=== PATIENT | male | born 1965 | race African-American/Black ===

== ENCOUNTER 2024-12-28 17:21 | Emergency (ER) | payer OTHER, SELFPAY ==
[2024-12-28 17:25] VITALS: BP 127/88; PULSE 98; RESP 16; TEMP 36.4; O2SAT 100
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
--- NOTE | 2024-12-28 17:53 | ECG_ITS ---
Test Date: 2024-12-28 17:53:58 Measurements Intervals [place] Rate: 97 P: 55 DE: 142 QRS: -9 QRSD: 161 T: 200 QT: 413 QTc: 527 Interpretive Statements SINUS RHYTHM POSSIBLE LEFT ATRIAL ENLARGEMENT LEFT BUNDLE BRANCH BLOCK BASELINE ARTIFACT- II, III ABNORMAL ECG No previous ECG available for comparison Electronically Signed On 12-29-2024 07:46:22 CDT by Dennys Wallis D.O.
[2024-12-28 18:25] LABS: Hematocrit 37.2 % (42.0-52.0); Hemoglobin 12.0 g/dL (14.0-18.0); Immature Granulocyte Percent A 0.2 % (0-0.5); Lymphocytes Absolute Auto 2.50 K/mm3 (0.9-3.2); Mean Corpuscular HGB Conc 32.3 g/dl (32-36); Mean Corpuscular Hemoglobin 26.8 pg (26-34); Mean Corpuscular Volume 83.2 fl (80-100); Nucleated Red Blood Cells Absolute Auto 0.000 K/mm3 (0.0-0.012); Nucleated Red Blood Cells Perc 0.0 % (0.0-0.2); Platelet Count Result 265 k/mm3 (150-375); Red Blood Count 4.47 M/mm3 (4.6-6.20); White Blood Count 5.4 K/mm3 (4.5-10.0)
--- OUTSIDE RECORDS SUMMARY | 2024-12-28 18:26 | XMS_ITS | Clinical Summary ---
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 rehab bed Assessment & Plan (08/15/2019 3:23 PM CDT): Patient with history of alcohol use disorder, cocaine use disorder, previous suicide attempts presenting with 1-2 weeks of worsening depressive symptoms in context of recent stressors including deaths of several people close to him and interpersonal conflict with the woman he lives with. DDx likely substance induced depressive disorder, but cannot rule out major depressive disorder or adjustment disorder. Pt with only intermittent passive SI, demonstrates good future planning. Pt will attempt to get into inpatient rehab while inpatient. Plan: Resume home [facility], pt to call for inpatient rehab bed Type 2 diabetes mellitus with hyperglycemia 08/14/2019 10/02/2024 Assessment & Plan (01/10/2024 10:54 AM CDT): Not controlled, declines medical management. Last A1c 12.7 in 05/2023 Not open to diet control. Made NPO here for BG up to 430. Declined blood draw to assess for AG. Counseled on risks, benefits of insulin and continues to decline medication. Further psych management per primary team. Assessment & Plan (12/18/2022 9:03 AM CDT): A1c 6 month ago was 12.7 At home has was prescribed Lantus 20u PM and glipizide. Nevertheless is not using DM medications. In the past he was using metformin On the ED, Bgs was in the 300s. No AG. S/p humalog sq 10u 2 days ago required 7u Humalog sq. Post insulin Bgs was 150 Since then pt is saying no to insulin These morning BG was 222 Again said no to insulin - On PSC I was recommending SSI and metformin 1000 mg BID. Lantus was hold because he was not eating much. - I explained patient that I recommend Insulin on discharge but he said no - Discharge with metformin 1000 mg BID and glipizide 5 mg daily - Gabapentin for DM neuropathy - Will need to have a fu with PCP Assessment & Plan (01/16/2021 1:27 PM CDT): Home med- lantus 20 units, glipizide and ssi Previously prescribed lantus 17 units at home with ssi. Patient reports taking lantus 20 units and is unsure how much lispro he takes but reports using a sliding scale. - increase lantus to 20 units - Reports storing his insulin at sisters place. -added lispro 3 unit with meals per IP diabetes team Assessment & Plan (01/15/2021 10:10 AM CDT): Home med- lantus 20 units, glipizide and ssi Previously prescribed lantus 17 units at home with ssi. Patient reports taking lantus 20 units and is unsure how much lispro he takes but reports using a sliding scale. - increase lantus to 20 units - Reports storing his insulin at sisters place. -added lispro 3 unit with meals per IP diabetes team Assessment & Plan (01/14/2021 1:07 PM CDT): Previously prescribed lantus 17 units at home with ssi. Patient reports taking lantus 20 units and is unsure how much lispro he takes but reports using a sliding scale. - increase lantus to 20 units - Reports storing his insulin at sisters place. -added lispro 3 unit with meals Assessment & Plan (01/13/2021 7:55 AM CDT): Previously prescribed lantus 17 units at home with ssi. Patient reports taking lantus 20 units and is unsure how much lispro he takes but reports using a sliding scale. - increase lantus to 20 units - Reports storing his insulin at sisters place. Assessment & Plan (01/12/2021 4:35 PM CDT): Previously prescribed lantus 17 units at home with ssi. Patient reports taking lantus 20 units and is unsure how much lispro he takes but reports using a sliding scale. - will continue lantus 17 units and ssi. Reports storing his insulin at sisters place. Assessment & Plan (01/11/2021 4:27 PM CDT): Previously prescribed lantus 17 units at home with ssi. Patient reports taking lantus 20 units and is unsure how much lispro he takes but reports using a sliding scale. - will continue lantus 17 units and ssi. Reports storing his insulin at sisters place. Assessment & Plan (01/10/2021 8:02 PM CDT): Previously prescribed lantus 17 units at home with ssi. Patient reports taking lantus 20 units and is unsure how much lispro he takes but reports using a sliding scale. - will continue lantus 17 units and ssi. Assessment & Plan (01/09/2021 1:28 PM CDT): Previously prescribed lantus 17 units at home with ssi. Patient reports taking lantus 20 units and is unsure how much lispro he takes but reports using a sliding scale. - will continue lantus 17 units and ssi. Assessment & Plan (01/08/2021 7:39 PM CDT): Previously prescribed lantus 17 units at home with ssi. Patient reports taking lantus 20 units and is unsure how much lispro it takes but reports using a sliding scale. - will continue lantus 17 units and ssi. Assessment & Plan (01/07/2021 6:05 PM CDT): Previously prescribed lantus 17 units at home with ssi. Patient reports taking lantus 20 units and is unsure how much lispro it takes but reports using a sliding scale. - will continue lantus 17 units and ssi. Assessment & Plan (01/06/2021 12:23 AM CDT): Previously prescribed lantus 17 units at home with ssi. Patient reports taking lantus 20 units and is unsure how much lispro it takes but reports using a sliding scale. - will continue lantus 17 units and ssi. Assessment & Plan (11/09/2020 3:04 PM CDT): Monitoring glucose and adjusting meds. Appreciate medical team recs Assessment & Plan (08/15/2019 3:27 PM CDT): A1c 8.1. Managed through patient's PCP. Home regimen metformin 1g BID, glipizide 10mg BID, Gabapentin 800 TID for neuropathic pain. Plan: -metformin 1000mg PO BID -lantus 10u qhs while inpatient Encounters Date Type Department Care Team Description 12/15/2024 1:35 AM CDT - 12/15/2024 11:26 AM CDT Emergency [address] [id number] Yan Palma Jr., MD Harper, Theodore Roosevelt, MD Depression with suicidal ideation (Primary Dx); Acute alcoholic intoxication without complication; Cocaine abuse (HCC); Alcohol abuse Discharge Disposition: Discharge to home or self care 12/13/2024 10:50 PM CDT - 12/14/2024 12:07 PM CDT Hospital Encounter [facility] [address] [place] [id number] Chris Fink MD Charepoo, Mina, MD Substance induced mood disorder (HCC) (Primary Dx); Alcohol use disorder, moderate (HCC) [F10.20]; Antisocial personality disorder (HCC) [F60.2]; Severe cocaine use disorder (HCC) [F14.20]; Type 2 diabetes mellitus without complication, without long-term current use of insulin (HCC) [E11.9] Discharge Disposition: Discharge to home or self care 12/13/2024 12:50 AM CDT - 12/13/2024 9:37 PM [facility] Emergency Department [address] [place] [id number] Octavio Talley MD Wala, Zubin Faiz, MD Suicidal ideation (Primary Dx); Homicidal ideation Discharge Disposition: Discharge to psych hospital or psych unit 12/08/2024 2:05 AM CDT - 12/09/2024 3:[address] [address] Suicidal ideation (Primary Dx); Substance abuse (HCC) Discharge Disposition: Discharge to home or self care 11/12/2024 11:08 PM T - 11/13/2024 5:[address] [address] Ernie Suarez DO Suicidal ideation (Primary Dx); Homicidal ideation; Chest pain, unspecified type; Polysubstance abuse (HCC) Discharge Disposition: Discharge to home or self care 11/08/2024 1:54 AM T - 11/08/2024 3:[address] [address] Homicidal ideation (Primary Dx); Malingering Discharge Disposition: Discharge to home or self care 10/14/2024 8:12 PM CDT - 10/15/2024 1:35 PM T [facility] [address] [place] [id number] Austin Neumann MD de Leon, Victoria Carmen, MD Severe cocaine use disorder (HCC) (Primary Dx) Discharge Disposition: Discharge to home or self care 10/14/2024 2:53 AM CDT - 10/14/2024 7:13 PM T Emergency [facility] [address] [place] [address] Yan Palma Jr., MD Holland, Kristy Lynn, MD Chest pain, unspecified type (Primary Dx); Elevated troponin; Depression with suicidal ideation; Situational stress; History of schizophrenia; History of bipolar disorder; Cocaine abuse (HCC); Alcohol abuse Discharge Disposition: Discharge to a short term hospital for IP 10/01/2024 5:13 PM CDT - 10/03/2024 2:34 PM CDT Hospital Encounter [facility] [address] [place] [address] Neli Jameson MD Haddad, Rita, MD L'Ecuyer, Suzanne, MD Substance induced mood disorder (HCC) [F19.94] (Primary Dx); Antisocial personality disorder (HCC) [F60.2]; Severe cocaine use disorder (HCC) [F14.20]; Alcohol use disorder, moderate (HCC) [F10.20]; Type 2 diabetes mellitus without complication, without long-term current use of insulin (HCC) [E11.9] Discharge Disposition: Discharge to home or self care 09/30/2024 2:34 AM CDT - 10/01/2024 3:57 PM T [address] [address] Suicidal ideation (Primary Dx); Homicidal ideation; Hallucinations; Alcoholic intoxication without complication; Hyperglycemia Discharge Disposition: Discharge to psych hospital or psych unit from Last 3 Months Immunizations Immunization Administration Dates Next Due Influenza, Trivalent, IM (MDV) 03/11/2022,2019 Pneumococcal Polysaccharide PPV23 01/20/2020 Tdap 01/16/2023,09/19/2020 Medical History Medical History Date Comments Type 2 diabetes mellitus HTN (hypertension) Gout Arthritis COPD (chronic obstructive pulmonary disease) PTSD (post-traumatic stress disorder) Depression ETOH abuse Cocaine abuse Family History Medical History Relation Name Comments alissa Brother Diabetes Sister Relation Name Status Comments Brother Sister Social History Tobacco Use Types Packs/Day Years Used Date Smoking Tobacco: Every Day Cigarettes Smokeless Tobacco: Never Tobacco Cessation:Ready to Q uit: Not Asked; Counseling Given: Not Answered Comments:sometimes Alcohol Use Standard Drinks/Week Comments Yes 21 (1 standard drink = 0.6 oz pu re alcohol) [facility] Utilities Answer Date Recorded In the past 12 months has e [employer], [employer], oil, or water [email or web address] threatened to shut off services in your home? Patient declined 12/14/2024 Humiliation, Afraid, Rape, and Kick questionnair e Answer Date Recorded Within the last year, have y ou been afraid of your partner or ex-partner? Patient declined 10/15/2024 Within the last year, have y ou been humiliated or emotionally abused in other ways by your partner or ex-partner? Patient declined 10/15/2024 Within the last year, have y ou been kicked, hit, slapped, or otherwise physically hurt by your partner or ex-partner? Patient declined 10/15/2024 Within the last year, have y ou been raped or forced to have any kind of sexual activity by your partner or ex-partner? Patient declined 10/15/2024 Social Connection and Isolation Panel [NHANES] A nswer Date Recorded In a typical week, how many times do you talk on the phone with family, friends, or neighbors? Patient declined 12/14/2024 How often do you get togethe r with friends or relatives? Patient declined 12/14/2024 How often do you attend jehovah's witness or zoroastrianism serv ices? Patient declined 12/14/2024 Do you belong to any clubs o r organizations such as jehovah's witness groups, unions, fraternal or athletic groups, or school groups? Patient declined 12/14/2024 How often do you attend meet ings of the clubs or organizations you belong to? Patient declined 12/14/2024 Are you , , di vorced, , never , or living with a partner? Never 12/14/2024 AUDIT-C Answer Date Recorded Q1: How often do you have a drink containing alc ohol? Patient declined 10/15/2024 Q2: How many drinks containi ng alcohol do you have on a typical day when you are drinking? Patient declined 10/15/2024 Q3: How often do you have si x or more drinks on one occasion? Patient declined 10/15/2024 Overall Financial Resource Strain (CARDIA) Answe r Date Recorded How hard is it for you to pa y for the very basics like food, housing, medical care, and heating? Patient declined 12/14/2024 PHQ-2 Answer Date Recorded PHQ-2 Total Score (If total score is 3 or more points, staff should administer the PHQ-9) 3 12/16/2022 [facility] Occupat ional [facility] - Occupational Stress Questionnaire Answer Date Recorded Do you feel stress - tense, restless, nervous, or anxious, or unable to sleep at night because your mind is troubled all the time - these days? Patient declined 10/15/2024 Exercise Vital Sign Answer Date Recorde d On average, how many days pe r week do you engage in moderate to strenuous exercise (like a brisk walk)? Patient declined On average, how many minutes do you engage in exercise at this level? Patient declined 10/15/2024 Hunger Vital Sign Answer Date Recorded Within the past 12 months, y ou worried that your food would run out before you got the money to buy more. Patient declined Within the past 12 months, t he food you bought just didn't last and you didn't have money to get more. Patient declined PRAPARE - Transportation Answer Date Re corded In the past 12 months, has l ack of transportation kept you from medical appointments or from getting medications? Patient declined 12/14/2024 In the past 12 months, has l ack of transportation kept you from meetings, work, or from getting things needed for daily living? Patient declined 12/14/2024 Housing Stability Vital Sign Answer Ko e Recorded In the last 12 months, was t here a time when you were not able to pay the mortgage or rent on time? Patient refused 12/18/19 Number of Places Lived in the Last Year Not on f ile 12/17/2022 In the last 12 months, was t here a time when you did not have a steady place to sleep or slept in a mcfp (including now)? Patient refused 12/17/2022 Housing Stability Vital Sign Answer Ko e Recorded In the last 12 months, was t here a time when you were not able to pay the mortgage or rent on time? Patient declined 12/15/19 25 In the past 12 months, how m any times have you moved where you were living? Not on file 12/14/2024 At any time in the past 12 m ont, were you homeless or living in a mcfp (including now)? Patient declined 12/14/2024 Personal Safety Answer Date Recorded Have you ever been in or are you currently in a harmful physical or emotional relationship or is someone making you feel afraid or unsafe? Denies 12/15/2024 Education Answer Date Recorded What is the highest level of school you have completed or the highest degree you have received? High school graduate 08/15/2019 Sex and Gender Information Value Date Recorded Sex Assigned at Not on file Legal Sex Male 3:32 AM [employer] Gender Identity Not on file Sexual Orientation Not on file Obstetrics History Last Filed Vital Signs Vital Sign Reading Time Taken Comments Blood Pressure 118/83 12/15/2024 10:35 AM CDT Pulse 95 12/15/2024 10:35 AM CDT Temperature 36.8 C (98.3 F) 12/15/2024 10:35 AM CDT Respiratory Rate 16 12/15/2024 10:35 AM CDT Oxygen Saturation 93% 12/15/2024 10:35 AM CDT Inhaled Oxygen Concentration - - Weight 74.8 kg (165 lb) 12/15/2024 1:40 AM CDT Height 172.7 cm (5' 8) 12/15/2024 1:40 AM CDT Body Mass Index 25.09 12/15/2024 1:40 AM CDT Plan of Treatment Health Maintenance Due Date Last Done Comments Albumin Creatinine Ratio, Urine 1966 Colon Cancer Screening-Colonoscopy 1966 Hepatitis C Screening 1966 Prostate Cancer Screening-PSA 1966 Dilated Eye Exam 1966 Foot Exam 1966 Hepatitis B Screening 1984 Regular Well Visit/Exam 18-64 1984 Zoster Vaccine (1 of 2) 2016 Pneumococcal vaccine <65 (2 of 2 - PCV) 01/19/2021 01/20/2020 Depression Screening 12/17/2023 12/16/2022, 12/16/2022, 01/05/2021, Additional history exists Covid-19 Vaccine (2 - 2023-2 5 season) 2024 05/03/2021 Influenza Vaccine (#1) 2025 03/11/2022, 2019 Hemoglobin A1C 03/15/2025 09/13/2024, 08/26, 01/10/2024, Additional history exists Lipid Panel 09/14/2025 09/14/2024, 1011/2022, 07/08/2022, Additional history exists eGFR 12/15/2025 12/15/2024, 11/25, 12/08/2024, Additional history exists DTaP/Tdap/Td Vaccine (3 - Td or Tdap) 01/16/2033 01/16/2023, 09/19/2020 Procedures Procedure Name Priority Date/Time Associated Diagnosis Comments EGFR STAT 12/15/2024 2:21 AM CDT DIFFERENTIAL AUTO STAT 12/15/2024 2:2 1 AM CDT DRUGS OF ABUSE SCREEN, URINE WITHOUT CONFIRMATION STAT 12/15/2024 2:21 AM CDT ETHANOL STAT 12/15/2024 2:21 AM CDT THYROID FUNCTION CASCADE STAT 12/15/2024 2:21 AM CDT COMPREHENSIVE METABOLIC PANEL STAT 12/15/2024 2:21 AM CDT CBC WITH AUTO DIFFERENTIAL STAT 12/15/2024 2:21 AM CDT COVID-19 CORONAVIRUS RNA STAT 12/15/2024 2:21 AM CDT URINALYSIS AND REFLEX TO MICROSCOPIC AND CULTURE STAT 12/15/2024 2:21 AM CDT COVID-19 CORONAVIRUS RNA STAT 12/13/2024 11:39 AM CDT URINALYSIS, MICROSCOPIC ONLY STAT 12/13/2024 1:18 AM CDT DRUGS OF ABUSE SCREEN, URINE WITHOUT CONFIRMATION STAT 12/13/2024 1:18 AM CDT URINALYSIS AND REFLEX TO MICROSCOPIC AND CULTURE STAT 12/13/2024 1:18 AM CDT ECG 12-LEAD STAT 12/13/2024 1:16 AM CDT EGFR STAT 12/13/2024 12:59 AM CDT DIFFERENTIAL AUTO STAT 12/13/2024 12: 59 AM CDT ACETAMINOPHEN LEVEL STAT 12/13/2024 1 2:59 AM CDT ETHANOL STAT 12/13/2024 12:59 AM CDT SALICYLATE LEVEL STAT 12/13/2024 12:5 9 AM CDT BASIC METABOLIC PANEL STAT 12/13/2024 12:59 AM CDT CBC WITH AUTO DIFFERENTIAL STAT 12/13/2024 12:59 AM CDT ECG 12-LEAD STAT 12/08/2024 8:59 PM CDT POCT GLUCOSE DEVICE Routine 12/08/2024 5 :41 PM CDT ECG 12-LEAD STAT 12/08/2024 4:50 PM CDT POCT GLUCOSE DEVICE Routine 12/08/2024 2 :46 PM CDT URINALYSIS, MICROSCOPIC ONLY STAT 12/08/2024 8:39 AM CDT DRUGS OF ABUSE SCREEN, URINE WITHOUT CONFIRMATION STAT 12/08/2024 8:39 AM CDT URINALYSIS AND REFLEX TO MICROSCOPIC AND CULTURE STAT 12/08/2024 8:39 AM CDT EGFR STAT 12/08/2024 2:31 AM CDT DIFFERENTIAL AUTO STAT 12/08/2024 2:3 1 AM CDT ETHANOL STAT 12/08/2024 2:31 AM CDT THYROID FUNCTION CASCADE STAT 12/08/2024 2:31 AM CDT COMPREHENSIVE METABOLIC PANEL STAT 12/08/2024 2:31 AM CDT CBC WITH AUTO DIFFERENTIAL STAT 12/08/2024 2:31 AM CDT INFLUENZA A/B, RSV, AND COVID-19 PCR STAT 12/08/2024 2:31 AM CDT TROPONIN T HIGH-SENSITIVITY 2-HOUR Timed 11/13/2024 1:09 AM CDT XR CHEST 1 VIEW ED 11/12/2024 11:09 PM CDT URINALYSIS, MICROSCOPIC ONLY STAT 11/12/2024 10:58 PM CDT DRUGS OF ABUSE SCREEN, URINE WITHOUT CONFIRMATION STAT 11/12/2024 10:58 PM CDT URINALYSIS AND REFLEX TO MICROSCOPIC AND CULTURE STAT 11/12/2024 10:58 PM CDT EGFR STAT 11/12/2024 10:54 PM CDT ETHANOL STAT 11/12/2024 10:54 PM CDT DIFFERENTIAL AUTO STAT 11/12/2024 10: 54 PM CDT TROPONIN T HIGH-SENSITIVITY SERIES (BASELINE, 2HR, 4HR, 6HR) STAT 11/12/2024 10:54 PM CDT COMPREHENSIVE METABOLIC PANEL STAT 11/12/2024 10:54 PM CDT CBC WITH AUTO DIFFERENTIAL STAT 11/12/2024 10:54 PM CDT COVID-19 CORONAVIRUS RNA STAT 11/12/2024 10:54 PM CDT ECG 12-LEAD STAT 11/12/2024 10:48 PM CDT POCT GLUCOSE DEVICE Routine 11/08/2024 1 2:46 PM CDT URINALYSIS, MICROSCOPIC ONLY STAT 11/08/2024 7:31 AM CDT DRUGS OF ABUSE SCREEN, URINE WITHOUT CONFIRMATION STAT 11/08/2024 7:31 AM CDT URINALYSIS AND REFLEX TO MICROSCOPIC AND CULTURE STAT 11/08/2024 7:31 AM CDT EGFR STAT 11/08/2024 3:18 AM CDT DIFFERENTIAL AUTO STAT 11/08/2024 3:1 8 AM CDT THYROID FUNCTION CASCADE STAT 11/08/2024 3:18 AM CDT ETHANOL STAT 11/08/2024 3:18 AM CDT COMPREHENSIVE METABOLIC PANEL STAT 11/08/2024 3:18 AM CDT CBC WITH AUTO DIFFERENTIAL STAT 11/08/2024 3:18 AM CDT INFLUENZA A/B, RSV, AND COVID-19 PCR STAT 11/08/2024 3:18 AM CDT URINALYSIS AND REFLEX TO MICROSCOPIC AND CULTURE STAT 10/14/2024 10:49 AM CDT INFLUENZA A/B, RSV, AND COVID-19 PCR STAT 10/14/2024 10:03 AM CDT DRUGS OF ABUSE SCREEN, URINE WITHOUT CONFIRMATION STAT 10/14/2024 5:31 AM CDT TROPONIN T HIGH-SENSITIVITY 2-HOUR Timed 10/14/2024 5:19 AM CDT ETHANOL STAT 10/14/2024 4:35 AM CDT XR CHEST 1 VIEW ED 10/14/2024 3:46 AM CDT ECG 12-LEAD STAT 10/14/2024 3:06 AM CDT SALICYLATE LEVEL STAT 10/14/2024 3:04 AM CDT ACETAMINOPHEN LEVEL STAT 10/14/2024 3 :04 AM CDT EGFR STAT 10/14/2024 3:04 AM CDT DIFFERENTIAL AUTO STAT 10/14/2024 3:0 4 AM CDT TROPONIN T HIGH-SENSITIVITY SERIES (BASELINE, 2HR, 4HR, 6HR) STAT 10/14/2024 3:04 AM CDT COMPREHENSIVE METABOLIC PANEL STAT 10/14/2024 3:04 AM CDT CBC WITH AUTO DIFFERENTIAL STAT 10/14/2024 3:04 AM CDT POCT GLUCOSE DEVICE Routine 10/03/2024 1 1:10 AM CDT POCT GLUCOSE DEVICE Routine 10/02/2024 7 :57 PM CDT POCT GLUCOSE DEVICE Routine 10/02/2024 5 :02 PM CDT POCT GLUCOSE DEVICE Routine 10/02/2024 1 1:23 AM CDT POCT GLUCOSE DEVICE Routine 10/02/2024 7 :01 AM CDT POCT GLUCOSE DEVICE Routine 10/01/2024 7 :48 PM CDT POCT GLUCOSE DEVICE Routine 10/01/2024 5 :40 PM CDT ACETAMINOPHEN LEVEL STAT 10/01/2024 5 :32 AM CDT ETHANOL STAT 10/01/2024 5:32 AM CDT POCT GLUCOSE DEVICE Routine 10/01/2024 5 :31 AM CDT DRUGS OF ABUSE SCREEN, URINE WITHOUT CONFIRMATION STAT 09/30/2024 9:54 AM CDT URINALYSIS AND REFLEX TO MICROSCOPIC AND CULTURE STAT 09/30/2024 9:54 AM CDT EGFR STAT 09/30/2024 2:34 AM CDT DIFFERENTIAL AUTO STAT 09/30/2024 2:3 4 AM CDT ETHANOL STAT 09/30/2024 2:34 AM CDT THYROID FUNCTION CASCADE STAT 09/30/2024 2:34 AM CDT COMPREHENSIVE METABOLIC PANEL STAT 09/30/2024 2:34 AM CDT CBC WITH AUTO DIFFERENTIAL STAT 09/30/2024 2:34 AM CDT COVID-19 CORONAVIRUS RNA STAT 09/30/2024 2:34 AM CDT LIPID PANEL Routine 09/14/2024 2:50 AM CDT HEMOGLOBIN A1C Routine 09/13/2024 2:57 PM CDT from Last 3 Months or Most Recently Relevant to Health Maintenance Results * COVID-19 Coronavirus RNA Nasopharyngeal (12/15/2024 2:21 AM CDT) [facility] COVID-19 RNA Negative Negative Nasopharyngeal 12/15/2024 2: 21 AM CDT 12/15/2024 2:27 AM CDT Narrative [facility] - 12/15/2024 2:59 AM CDT Is the patient experiencing any symptoms consistent with COVID (eg. Fever, cough, shortness of breath)?->No What is the reason for testing?->Screening prior to Behavioral health admission Interpretive data Testing performed by [facility]. This test is performed using the [employer] Virtus Xpert Xpress CoV-2 plus assay. This is a real-time RT-PCR test intended for the qualitative detection of nucleic acid from the SARS-CoV-2. This assay has been cleared by the [place] Food and Drug administration. The performance characteristics have been verified by the [facility]. Results must be considered in the clinical context, and a negative result does not rule out infection. Interpretive data last revised 2023. Interpretive data Testing performed by [facility]. This test is performed using the [employer] Virtus Xpert Xpress CoV-2 plus assay. This is a real-time RT-PCR test intended for the qualitative detection of nucleic acid from the SARS-CoV-2. This assay has been cleared by the [place] Food and Drug administration. The performance characteristics have been verified by the [facility]. Results must be considered in the clinical context, and a negative result does not rule out infection. Interpretive data last revised 2023. us Yan Palma Jr., MD LAB MICROBIOLOGY - [facility] ORDERABLES Final Result [facility] [address] [facility] Department [place] [address] * eGFR (12/15/2024 2:21 AM CDT) eGFR 77 >=60 mL/min/1. 73 m2 Comment: Interpretive Data Reference Interval Normal >/= 90 mL/min/1.73m2 Mildly decreased* 60 - 89 mL/min/1.73m2 Mildly to moderately decreased 45 - 59 mL/min/1.73m2 Moderately to severely decreased 30 - 44 mL/min/1.73m2 Severely decreased 15 - 29 mL/min/1.73m2 Kidney Failure < 15 mL/min/1.73m2 *Relative to young adult level Estimated glomerular filtration rate is determined by the 2020 CKD-EPI equation recommended by the National Kid[employer] Foundation (A Unifying Approach to GFR Estimation: Recommendations of the NKF-ASK Task Force on Reassessing the Inclusion of Race in Diagnosing Kidney Disease, JASN 2020). The CKD-EPI equation should not be used for patients with unstable renal function and has not been validated in children and those over 70. Current interpretive data was last reviewed 2021. Blood 12/15/2024 2:21 AM CDT 12/15/2024 2:27 AM CDT us Yan Palma Jr., MD LAB BLOOD ORDERABLES Fi nal Result [facility] [address] [facility] Department [place] [address] * Differential, auto (12/15/2024 2:21 AM CDT) Pathologist [facility] Neutrophil abs 1.65 1.50 - 6.50 K/cumm Imm gran abs 0.01 0.00 - 0.10 K/cumm [facility] Lymphocyte abs 2.16 0.80 - 3.30 K/cumm [facility] Monocyte abs 0.35 0.20 - 0.80 K/cumm [facility] Eosinophil abs 0.08 0.00 - 0.50 K/cumm [facility] Basophil abs 0.04 0.00 - 0.10 K/cumm [facility] Neutrophil pct 38.5 % [facility] Comment: Interpretive Data Percent cell count reference ranges are not reported, since discordance with absolute values may lead to misinterpretation of CBC data. Current Interpretive Data was last revised on 2017. Imm gran pct 0.2 % [facility] Comment: Interpretive Data Percent cell count reference ranges are not reported, since discordance with absolute values may lead to misinterpretation of CBC data. Current Interpretive Data was last revised on 2017. Lymphocyte pct 50.3 % [facility] Comment: Interpretive Data Percent cell count reference ranges are not reported, since discordance with absolute values may lead to misinterpretation of CBC data. Current Interpretive Data was last revised on 2017. Monocyte pct 8.2 % [facility] Comment: Interpretive Data Percent cell count reference ranges are not reported, since discordance with absolute values may lead to misinterpretation of CBC data. Current Interpretive Data was last revised on 2017. Eosinophil pct 1.9 % [facility] Comment: Interpretive Data Percent cell count reference ranges are not reported, since discordance with absolute values may lead to misinterpretation of CBC data. Current Interpretive Data was last revised on 2017. Basophil pct 0.9 % [facility] Comment: Interpretive Data Percent cell count reference ranges are not reported, since discordance with absolute values may lead to misinterpretation of CBC data. Current Interpretive Data was last revised on 2017. Blood 12/15/2024 2:21 AM CDT 12/15/2024 2:27 AM CDT Yan Palma Jr., MD LAB BLOOD ORDERABLES Fi nal Result Performing Organization Address [facility] Co de Phone Number [place] [phone] [facility] [place] [address] * Thyroid Function Barton (12/15/2024 2:21 AM CDT) TSH 0.85 0.30 - 4.20 mcIUnit/mL Blood 12/15/2024 2:21 AM CDT 12/15/2024 2:27 AM CDT Yan Palma Jr., MD LAB BLOOD ORDERABLES Fi nal Result Performing Organization Address [facility] Co de Phone Number [place] [phone] [place] [address] * (ABNORMAL) Urinalysis reflex to microscopic and culture Urine (12/15/2024 2:21 AM CDT) Pathologist [facility] [place] Color, ur Yellow Yellow Clarity, ur Clear Clear [facility] Specific gravity, ur 1.013 1.003 - 1.030 [facility] pH, urine 5.5 [facility] Comment: Interpretive Data U rine pH is affected by diet, medications, systemic acid-base disturbances, and renal tubular function. pH may affect urinary stone formation. For example, urine pH below 6.0 may help reduce the tendency for calcium phosphate stones and pH greater than 6.0 may reduce the tendency for uric acid stone formation. Source: [facility] Current Interpretive Data was last revised on 2017 Protein, ur ql Negative Negative [facility] Glucose, ur ql 1+(A) Negative [facility] Ketones, ur Negative Negative [facility] Bilirubin, ur Negative Negative [facility] Blood, ur Negative Negative [facility] Urobilinogen, ur <2.0 <2.0 mg/dL [facility] Nitrite, ur Negative Negative [facility] Leukocyte esterase, ur Negative Negative [facility] UA reflex comment Reflex conditions for microscopic UA and culture not met. [facility] Urine 12/15/2024 2:21 AM CDT 12/15/2024 2:27 AM CDT Yan Palma Jr., MD LAB MICROBIOLOGY - [facility] ORDERABLES Final Result [facility] [address] [facility] Department [place] [address] * (ABNORMAL) CBC with auto differential (12/15/2024 2:21 AM CDT) WBC 4.29 3.80 - 9.90 K/cumm Hgb 11.6(L) 13.0 - 17.5 g/dL [facility] Hct 35.3(L) 38.9 - 50.3 % [facility] Plt 196 150 - 400 K/cumm [facility] MPV 9.3 9.1 - 12.3 fL [facility] RBC 4.33 4.30 - 5.80 M/cumm [facility] MCV 81.5 81.3 - 96.4 fL [facility] MCH 26.8(L) 27.1 - 33.3 pg [facility] MCHC 32.9 32.3 - 35.7 g/dL [facility] RDW CV 15.1(H) 11.1 - 14.9 % [facility] RDW SD 44.9 35.7 - 48.1 fL [facility] NRBC abs 0.00 0.00 - 0.01 K/cumm [facility] Blood Venous blood specimen / Unknown 12/15/2024 2:21 AM CDT 12/15/2024 2:27 AM CDT Yan Palma Jr., MD LAB BLOOD ORDERABLES Fi nal Result [facility] [address] [facility] Department [place] [address] * (ABNORMAL) Drugs of Abuse Screen, Urine without Confirmation (12/15/2024 2:21 AM CDT) Amphetamine, ur Not Detected CutOff 500ng/mL Comment: Interpretive Data - Amphetamines: Samples containing greater than 500 ng/mL d-methamphetamine or other cross-reacting amphetamine compounds are reported as positive. Amphetamine immunoassays are subject to significant false positive rates due to cross-reactivity of non-amphetamine drugs. Confirmatory testing required for definitive results. Current Interpretive Data was last reviewed 2022. Barbiturates, ur Not Detected CutOff 200ng/mL [facility] Comment: Interpretive Data - Barbiturates: Samples containing greater than 200 ng/mL secobarbital or other cross-reacting barbiturate compounds are reported as positive. False positive and false negative results are possible. Confirmatory testing required for definitive results. Current Interpretive Data was last reviewed 2022. Benzodiazepines, ur Not Detected CutOff 100ng/mL [facility] Comment: Interpretive Data - Benzodiazepines: Samples containing greater than 100 ng/mL nordiazepam or other cross-reacting compounds are reported as positive. False positive and false negative results are possible. Confirmatory testing required for definitive results. Current Interpretive Data was last reviewed 2022. Cannabinoids, ur Not Detected CutOff 50 ng/mL [facility] Comment: Interpretive Data - Cannabinoids: Samples containing greater than 50 ng/mL delta-9 THC -COOH or other cross- reacting compounds are reported as positive. False positive and false negative results are possible. Confirmatory testing required for definitive results. Current Interpretive Data was last reviewed 2022. Cocaine, ur Screen Positive, presumptive (A) CutOff 150ng/mL [facility] Comment: Interpretive Data - Cocaine: Samples containing greater than 150 ng/mL benzoylecgonine or other cross- reacting compounds are reported as positive. False positive and false negative results are possible. Confirmatory testing required for definitive results. Current Interpretive Data was last reviewed 2022. Fentanyl, Ur Not Detected CutOff 5 ng/mL [facility] Comment: Interpretive Data - Fentanyl: Samples containing greater than 5 ng/mL norfentanyl, fentanyl, or other cross-reacting fentanyl compounds are reported as positive. False positive and false negative results are possible. Confirmatory testing required for definitive results. Current Interpretive Data was last reviewed 2023. Methadone, ur Not Detected CutOff 300ng/mL [facility] Comment: Interpretive Data - Methadone: Samples containing greater than 300 ng/mL d,l-methadone or other cross-reacting compounds are reported as positive. False positive and false negative results are possible. Confirmatory testing required for definitive results. Current Interpretive Data was last reviewed 2022. Opiates, ur Not Detected CutOff 300ng/mL [facility] Comment: Interpretive Data - Opiates: Samples containing greater than 300 ng/mL morphine or other cross-reacting compounds are reported as positive. False positive and false negative results are possible. Confirmatory testing required for definitive results. Current Interpretive Data was last reviewed 2022. Oxycodone, ur Not Detected CutOff 100ng/mL [facility] Comment: Interpretive Data - Oxycodone: Samples containing greater than 100 ng/mL oxycodone or other cross-reacting compounds are reported as positive. False positive and false negative results are possible. Confirmatory testing required for definitive results. Current Interpretive Data was last reviewed 2022. Phencyclidine, ur Not Detected CutOff 25 ng/mL [facility] Comment: Interpretive Data - Phencyclidine: Samples containing greater than 25 ng/mL phencyclidine or other cross-reacting compounds are reported as positive. False positive and false negative results are possible. Confirmatory testing required for definitive results. Current Interpretive Data was last reviewed 2022. Urine Creatinine 192 mg/dL [facility] Comment: Interpretive Data Urine Creatinine: < 10 mg/dL is extremely dilute = or > 10 but < 20 mg/dL is dilute = or > 20 mg/dL is normal Current Interpretive Data was last revised on 2017. Urine 12/15/2024 2:21 AM CDT 12/15/2024 2:27 AM CDT Narrative [facility] - 12/15/2024 2:52 AM CDT Drug of Abuse screening is performed by immunoassay for medical purposes only. This is not to be used for Pain Management purposes. Yan Palma Jr., MD LAB URINE ORDERABLES Fi nal Result Performing Organization Address [facility] de Phone Number [address] [place] [address] * (ABNORMAL) Ethanol (12/15/2024 2:21 AM CDT) Ethanol 130(H) <=10 mg/dL Comment: Interpretive Data Legal limit of intoxication > or = 80 mg/dL Levels > or = 400 mg/dL are potentially TOXIC. Current interpretive data was last revised on 2018. Blood 12/15/2024 2:21 AM CDT 12/15/2024 2:27 AM CDT Yan Palma Jr., MD LAB BLOOD ORDERABLES Fi nal Result Performing Organization Address [facility] Co de Phone Number [address] [employer] [place], [place] [id number] * (ABNORMAL) Comprehensive metabolic panel (12/15/2024 2:21 AM CDT) Sodium 138 135 - 145 mmol/L Potassium, pl 3.8 3.3 - 4.9 mmol/L [facility] Chloride 104 97 - 110 mmol/L [facility] CO2 21(L) 22 - 32 mmol/L [facility] Anion gap 13 2 - 15 mmol/L [facility] BUN 11 6 - 25 mg/dL [facility] Creatinine 1.11 0.80 - 1.30 mg/dL [facility] Glucose 389(H) 70 - 199 mg/dL [facility] Comment: Delta - Results Reviewed Interpretive Data Fasting glucose >/= 126 mg/dl is diagnostic for diabetes. Fasting is defined as no caloric intake for at least 8 hours. Fasting glucose between 100 mg/dl to 125 mg/dl is diagnostic of prediabetes. In a patient with classic symptoms of hyperglycemia or hyperglycemic crisis, a random glucose >/= 200 mg/dl is diagnostic for diabetes. In the absence of unequivocal hyperglycemia, results should be confirmed by repeat testing. The classification and Diagnosis of Diabetes Diabetes Care 202; 46: S19-S40. Current interpretive data was last revised 2022. Calcium 8.6 8.5 - 10.3 mg/dL [facility] Bilirubin, total 0.4 0.1 - 1.2 mg/dL [facility] Protein, pl 6.9 6.5 - 8.5 g/dL [facility] Albumin 4.0 3.5 - 5.0 g/dL [facility] Alk phos 61 40 - 130 Units/L [facility] ALT 11 7 - 55 Units/L [facility] AST 23 10 - 50 Units/L [facility] Blood 12/15/2024 2:21 AM CDT 12/15/2024 2:27 AM CDT Yan Palma Jr., MD LAB BLOOD ORDERABLES Fi nal Result [facility] [address] [facility] Department [place] [address] * COVID-19 Coronavirus RNA Nasopharyngeal (12/13/2024 11:39 AM CDT) COVID-19 RNA Negative Negative Comment:Testing performed by : [facility], [address] [place] [address]., [address] Nasopharyngeal 12/13/2024 11 :39 AM CDT 12/13/2024 11:45 AM CDT Narrative [facility] - 12/13/2024 12:27 PM CDT Is the patient experiencing any symptoms consistent with COVID (eg. Fever, cough, shortness of breath)?->No What is the reason for testing?->Screening prior to Behavioral health admission Interpretive data Testing performed by [facility]. This test is performed using the [employer] Virtus Xpert Xpress CoV-2 plus assay. This is a real-time RT-PCR test intended for the qualitative detection of nucleic acid from the SARS-CoV-2. This assay has been cleared by the [place] Food and Drug administration. The performance characteristics have been verified by the [facility]. Results must be considered in the clinical context, and a negative result does not rule out infection. Interpretive data last revised 2023. Nohemi GREEN LAB MICROBIOLOGY - GENERAL ORDERABLES Final Result [facility] [address] [facility] Department [place] [address] * (ABNORMAL) Urinalysis reflex to microscopic and culture Urine (12/13/2024 1:18 AM CDT) Color, ur Yellow Yellow Comment:Testing performed by : [address] [address] Clarity, ur Clear Clear [facility] Comment:Testing performed by : [address] [address] Specific gravity, ur 1.022 1.003 - 1.030 [facility] Comment:Testing performed by : [address] [address] pH, urine 6.5 [facility] Comment: Interpretive Data U rine pH is affected by diet, medications, systemic acid-base disturbances, and renal tubular function. pH may affect urinary stone formation. For example, urine pH below 6.0 may help reduce the tendency for calcium phosphate stones and pH greater than 6.0 may reduce the tendency for uric acid stone formation. Source: [employer] Current Interpretive Data was last revised on 2017 Testing performed by: [facility], [address] [place] [address], [place]., [address] Protein, ur ql 1+(A) Negative [facility] [place] Comment:Testing performed by : [address], [place]., [address] Glucose, ur ql Negative Negative [facility] Comment:Testing performed by : [address], [place]., [address] Ketones, ur Negative Negative [facility] Comment:Testing performed by : [address], [place]., [address] Bilirubin, ur Negative Negative [facility] Comment:Testing performed by : [address], [place]., [address] Blood, ur Negative Negative [facility] Comment:Testing performed by : [address], [place]., [address] Urobilinogen, ur <2.0 <2.0 mg/dL [facility] Comment:Testing performed by : [address], [place]., [address] Nitrite, ur Negative Negative [facility] Comment:Testing performed by : [address], [place]., [address] Leukocyte esterase, ur Negative Negative [facility] Comment:Testing performed by : [address], [place]., [address] UA reflex comment Reflex to microscopic UA will be performed. [facility] Comment:Testing performed by : [address] [address] Urine 12/13/2024 1:18 AM CDT 12/13/2024 1:22 AM CDT us Octavio Talley MD LAB MICROBIOLOGY - GENERAL ORDERABLES Final Result [facility] [place] [address] [facility] Department [place] [address] * (ABNORMAL) Drugs of Abuse Screen, Urine without Confirmation (12/13/2024 1:18 AM CDT) Amphetamine, ur Not Detected CutOff 500ng/mL Comment: Interpretive Data - Amphetamines: Samples containing greater than 500 ng/mL d-methamphetamine or other cross-reacting amphetamine compounds are reported as positive. Amphetamine immunoassays are subject to significant false positive rates due to cross-reactivity of non-amphetamine drugs. Confirmatory testing required for definitive results. Current Interpretive Data was last reviewed 2022. Testing performed by: [facility], [address] [place] [address]., [address] Barbiturates, ur Not Detected CutOff 200ng/mL [facility] Comment: Interpretive Data - Barbiturates: Samples containing greater than 200 ng/mL secobarbital or other cross-reacting barbiturate compounds are reported as positive. False positive and false negative results are possible. Confirmatory testing required for definitive results. Current Interpretive Data was last reviewed 2022. Testing performed by: [address] [address] Benzodiazepines, ur Not Detected CutOff 100ng/mL [facility] Comment: Interpretive Data - Benzodiazepines: Samples containing greater than 100 ng/mL nordiazepam or other cross-reacting compounds are reported as positive. False positive and false negative results are possible. Confirmatory testing required for definitive results. Current Interpretive Data was last reviewed 2022. Testing performed by: [address] [address] Cannabinoids, ur Not Detected CutOff 50 ng/mL [facility] Comment: Interpretive Data - Cannabinoids: Samples containing greater than 50 ng/mL delta-9 THC -COOH or other cross- reacting compounds are reported as positive. False positive and false negative results are possible. Confirmatory testing required for definitive results. Current Interpretive Data was last reviewed 2022. Testing performed by: [address] [address] Cocaine, ur Screen Positive, presumptive (A) CutOff 150ng/mL [facility] Comment: Interpretive Data - Cocaine: Samples containing greater than 150 ng/mL benzoylecgonine or other cross- reacting compounds are reported as positive. False positive and false negative results are possible. Confirmatory testing required for definitive results. Current Interpretive Data was last reviewed 2022. Testing performed by: [address] [address] Fentanyl, Ur Not Detected CutOff 5 ng/mL [facility] Comment: Interpretive Data - Fentanyl: Samples containing greater than 1 ng/mL fentanyl or other cross-reacting fentanyl compounds are reported as positive. False positive and false negative results are possible. Confirmatory testing required for definitive results. Current Interpretive Data was last reviewed 2022. Testing performed by: [address] [address] Methadone, ur Not Detected CutOff 300ng/mL [facility] Comment: Interpretive Data - Methadone: Samples containing greater than 300 ng/mL d,l-methadone or other cross-reacting compounds are reported as positive. False positive and false negative results are possible. Confirmatory testing required for definitive results. Current Interpretive Data was last reviewed 2022. Testing performed by: [address], [place]., [address] Opiates, ur Not Detected CutOff 300ng/mL [facility] Comment: Interpretive Data - Opiates: Samples containing greater than 300 ng/mL morphine or other cross-reacting compounds are reported as positive. False positive and false negative results are possible. Confirmatory testing required for definitive results. Current Interpretive Data was last reviewed 2022. Testing performed by: [address] [address] Oxycodone, ur Not Detected CutOff 100ng/mL [facility] Comment: Interpretive Data - Oxycodone: Samples containing greater than 100 ng/mL oxycodone or other cross-reacting compounds are reported as positive. False positive and false negative results are possible. Confirmatory testing required for definitive results. Current Interpretive Data was last reviewed 2022. Testing performed by: [address] [address] Phencyclidine, ur Not Detected CutOff 25 ng/mL [facility] Comment: Interpretive Data - Phencyclidine: Samples containing greater than 25 ng/mL phencyclidine or other cross-reacting compounds are reported as positive. False positive and false negative results are possible. Confirmatory testing required for definitive results. Current Interpretive Data was last reviewed 2022. Testing performed by: [address], [place]., [address] Urine Creatinine 221 mg/dL [facility] Comment: Interpretive Data Urine Creatinine: < 10 mg/dL is extremely dilute = or > 10 but < 20 mg/dL is dilute = or > 20 mg/dL is normal Current Interpretive Data was last revised on 2017. Testing performed by: [address] [address] Urine 12/13/2024 1:18 AM CDT 12/13/2024 1:22 AM CDT Narrative [facility] - 12/13/2024 1:38 AM CDT Drug of Abuse screening is performed by immunoassay for medical purposes only. This is not to be used for Pain Management purposes. Octavio Talley MD LAB URINE ORDERABLE S Final Result Performing Organization Address [facility] Co de Phone Number [facility] [facility] [place] [address] * (ABNORMAL) Urinalysis, microscopic only (12/13/2024 1:18 AM CDT) WBC, ur 0-5 0 - 5 /HPF Comment:Testing performed by : [address] [address] RBC, ur 0-2 0 - 2 /HPF [facility] Comment:Testing performed by : [address] [address] Mucous, ur Present(A) [facility] Comment:Testing performed by : [address] [address] Culture Reflex Comment Reflex conditions for urine culture (WBC >10) not met. [facility] Comment:Testing performed by : [address] [address] Urine 12/13/2024 1:18 AM CDT 12/13/2024 1:22 AM CDT us Octavio Talley MD LAB URINE ORDERABLE S Final Result Performing Organization Address City/[facility] Co de Phone Number [facility] [address] * ECG 12 lead (12/13/2024 1:16 AM CDT) Pathologist [facility] [place] Ventricular Rate EKG/Min 99 BPM [facility] Atrial Rate 99 BPM [facility] VA-Interval (MSEC) 134 ms [facility] QRS-Interval (MSEC) 156 ms [facility] QT-Interval (MSEC) 418 ms [facility] QTc 536 ms [facility] P Upper Tract 48 degrees [facility] R Upper [place]ract -47 degrees [facility] T Upper Tract 124 degrees [facility] Diagnosis Normal sinus rhythm Possible Left atrial enlargement Left axis deviation Left bundle branch block Abnormal ECG When compared with ECG of 08-DEC-2024 20:59 QRS axis Shifted right Confirmed by LOCO PITTMAN M.D. ([id number]) on 12/13/2024 10:04:51 PM [facility] 12/13/2024 1:16 AM CDT 12/13/2024 10:04 PM CDT us Octavio Talley MD ECG ORDERABLES Fin al Result [facility] * eGFR (12/13/2024 12:59 AM CDT) Pathologist [facility] [place] eGFR 77 >=60 mL/min/1. 73 m2 Comment: Interpretive Data Reference Interval Normal >/= 90 mL/min/1.73m2 Mildly decreased* 60 - 89 mL/min/1.73m2 Mildly to moderately decreased 45 - 59 mL/min/1.73m2 Moderately to severely decreased 30 - 44 mL/min/1.73m2 Severely decreased 15 - 29 mL/min/1.73m2 Kidney Failure < 15 mL/min/1.73m2 *Relative to young adult level Estimated glomerular filtration rate is determined by the 2020 CKD-EPI equation recommended by the National [employer] (A Unifying Approach to GFR Estimation: Recommendations of the NKF-ASK Task Force on Reassessing the Inclusion of Race in Diagnosing Kidney Disease, JASN 2020). The CKD-EPI equation should not be used for patients with unstable renal function and has not been validated in children and those over 70. Current interpretive data was last reviewed 2021. Testing performed by: [address] [address] Blood 12/13/2024 12:5 9 AM CDT 12/13/2024 1:03 AM CDT us Octavio Talley MD LAB BLOOD ORDERABLE S Final Result [facility] [address] [facility] [place] [address] * Differential, auto (12/13/2024 12:59 AM CDT) Neutrophil abs 1.57 1.50 - 6.50 K/cumm Comment:Testing performed by : [address] [address] Imm gran abs 0.01 0.00 - 0.10 K/cumm [facility] Comment:Testing performed by : [address] [address] Lymphocyte abs 2.79 0.80 - 3.30 K/cumm JÚNIOR Comment:Testing performed by : [address] [address] Monocyte abs 0.46 0.20 - 0.80 K/cumm JÚNIOR Comment:Testing performed by : [address] [address] Eosinophil abs 0.17 0.00 - 0.50 K/cumm JÚNIOR Comment:Testing performed by : [address] [address] Basophil abs 0.04 0.00 - 0.10 K/cumm JÚNIOR Comment:Testing performed by : [address] [address] Neutrophil pct 31.1 % [facility] Comment: Interpretive Data Percent cell count reference ranges are not reported, since discordance with absolute values may lead to misinterpretation of CBC data. Current Interpretive Data was last revised on 2017. Testing performed by: [address] [address] Imm gran pct 0.2 % [facility] Comment: Interpretive Data Percent cell count reference ranges are not reported, since discordance with absolute values may lead to misinterpretation of CBC data. Current Interpretive Data was last revised on 2017. Testing performed by: [address] [address] Lymphocyte pct 55.4 % [facility] Comment: Interpretive Data Percent cell count reference ranges are not reported, since discordance with absolute values may lead to misinterpretation of CBC data. Current Interpretive Data was last revised on 2017. Testing performed by: [address] [address] Monocyte pct 9.1 % [facility] Comment: Interpretive Data Percent cell count reference ranges are not reported, since discordance with absolute values may lead to misinterpretation of CBC data. Current Interpretive Data was last revised on 2017. Testing performed by: [address] [address] Eosinophil pct 3.4 % [facility] Comment: Interpretive Data Percent cell count reference ranges are not reported, since discordance with absolute values may lead to misinterpretation of CBC data. Current Interpretive Data was last revised on 2017. Testing performed by: [address] [address] Basophil pct 0.8 % [facility] Comment: Interpretive Data Percent cell count reference ranges are not reported, since discordance with absolute values may lead to misinterpretation of CBC data. Current Interpretive Data was last revised on 2017. Testing performed by: [address] [address] Blood 12/13/2024 12:5 9 AM CDT 12/13/2024 1:03 AM CDT us Octavio Talley MD LAB BLOOD ORDERABLE S Final Result [facility] [address] [facility] Department [place] [address] * (ABNORMAL) CBC with auto differential (12/13/2024 12:59 AM CDT) [facility] WBC 5.04 3.80 - 9.90 K/cumm Comment:Testing performed by : [address] [address] Hgb 11.6(L) 13.0 - 17.5 g/dL J[facility]OR Comment:Testing performed by : [address], [address] Hct 35.3(L) 38.9 - 50.3 % [facility] Comment:Testing performed by : [address] [address] Plt 212 150 - 400 K/cumm JÚNIOR Comment:Testing performed by : [address] [address] MPV 8.9(L) 9.1 - 12.3 fL [facility] Comment:Testing performed by : [address], [address] RBC 4.35 4.30 - 5.80 M/cumm JÚNIOR Comment:Testing performed by : [address], [address] MCV 81.1(L) 81.3 - 96.4 fL [facility] Comment:Testing performed by : [address] [address] MCH 26.7(L) 27.1 - 33.3 pg [facility] Comment:Testing performed by : [address], [address] MCHC 32.9 32.3 - 35.7 g/dL J[facility] Comment:Testing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 [address] [facility] [place] [address] * (ABNORMAL) Drugs of Abuse Screen, Urine without Confirmation (11/12/2024 10:58 PM CDT) [facility] Amphetamine, ur Not Detected CutOff 500ng/mL Comment: Interpretive Data - Amphetamines: Samples containing greater than 500 ng/mL d-methamphetamine or other cross-reacting amphetamine compounds are reported as positive. Amphetamine immunoassays are subject to significant false positive rates due to cross-reactivity of non-amphetamine drugs. Confirmatory testing required for definitive results. Current Interpretive Data was last reviewed 2022. Barbiturates, ur Not Detected CutOff 200ng/mL [facility] Comment: Interpretive Data - Barbiturates: Samples containing greater than 200 ng/mL secobarbital or other cross-reacting barbiturate compounds are reported as positive. False positive and false negative results are possible. Confirmatory testing required for definitive results. Current Interpretive Data was last reviewed 2022. Benzodiazepines, ur Not Detected CutOff 100ng/mL [facility] Comment: Interpretive Data - Benzodiazepines: Samples containing greater than 100 ng/mL nordiazepam or other cross-reacting compounds are reported as positive. False positive and false negative results are possible. Confirmatory testing required for definitive results. Current Interpretive Data was last reviewed 2022. Cannabinoids, ur Screen Positive, presumptive (A) CutOff 50 ng/mL [facility] Comment: Interpretive Data - Cannabinoids: Samples containing greater than 50 ng/mL delta-9 THC -COOH or other cross- reacting compounds are reported as positive. False positive and false negative results are possible. Confirmatory testing required for definitive results. Current Interpretive Data was last reviewed 2022. Cocaine, ur Screen Positive, presumptive (A) CutOff 150ng/mL [facility] Comment: Interpretive Data - Cocaine: Samples containing greater than 150 ng/mL benzoylecgonine or other cross- reacting compounds are reported as positive. False positive and false negative results are possible. Confirmatory testing required for definitive results. Current Interpretive Data was last reviewed 2022. Fentanyl, Ur Not Detected CutOff 5 ng/mL [facility] Comment: Interpretive Data - Fentanyl: Samples containing greater than 5 ng/mL norfentanyl, fentanyl, or other cross-reacting fentanyl compounds are reported as positive. False positive and false negative results are possible. Confirmatory testing required for definitive results. Current Interpretive Data was last reviewed 2023. Methadone, ur Not Detected CutOff 300ng/mL [facility] Comment: Interpretive Data - Methadone: Samples containing greater than 300 ng/mL d,l-methadone or other cross-reacting compounds are reported as positive. False positive and false negative results are possible. Confirmatory testing required for definitive results. Current Interpretive Data was last reviewed 2022. Opiates, ur Not Detected CutOff 300ng/mL [facility] Comment: Interpretive Data - Opiates: Samples containing greater than 300 ng/mL morphine or other cross-reacting compounds are reported as positive. False positive and false negative results are possible. Confirmatory testing required for definitive results. Current Interpretive Data was last reviewed 2022. Oxycodone, ur Not Detected CutOff 100ng/mL [facility] Comment: Interpretive Data - Oxycodone: Samples containing greater than 100 ng/mL oxycodone or other cross-reacting compounds are reported as positive. False positive and false negative results are possible. Confirmatory testing required for definitive results. Current Interpretive Data was last reviewed 2022. Phencyclidine, ur Not Detected CutOff 25 ng/mL [facility] Comment: Interpretive Data - Phencyclidine: Samples containing greater than 25 ng/mL phencyclidine or other cross-reacting compounds are reported as positive. False positive and false negative results are possible. Confirmatory testing required for definitive results. Current Interpretive Data was last reviewed 2022. Urine Creatinine 172 mg/dL [facility] Comment: Interpretive Data Urine Creatinine: < 10 mg/dL is extremely dilute = or > 10 but < 20 mg/dL is dilute = or > 20 mg/dL is normal Current Interpretive Data was last revised on 2017. Urine 11/12/2024 10:5 8 PM CDT 11/12/2024 11:04 PM CDT Narrative [facility] - 11/12/2024 11:34 PM CDT Drug of Abuse screening is performed by immunoassay for medical purposes only. This is not to be used for Pain Management purposes. Ernie Suarez DO LAB URINE ORDERABLES Final Res ult [facility] [address] [place] [address] * Urinalysis, microscopic only (11/12/2024 10:58 PM CDT) [facility] WBC, ur 0-5 0 - 5 /HPF RBC, ur 0-2 0 - 2 /HPF [facility] Epithelial cells, squamous, ur 1-5 0 - 5 /HPF [facility] Culture Reflex Comment Reflex conditions for urine culture (WBC >10) not met. [facility] Urine 11/12/2024 10:5 8 PM CDT 11/12/2024 11:04 PM CDT [facility] LAB URINE ORDERABLES Final Res ult Performing Organization Address [facility] Co de Phone Number [address] [address] * (ABNORMAL) Troponin T high-sensitivity series (baseline, 2hr, 4hr, 6hr) (11/12/2024 10:54 PM CDT) [facility] Trop T hs 103(H) <=22 ng/L Comment: Interpretive Data For further hscTnT resources including the diagnostic algorithm and an aid in interpretation, copy and paste this link: https://nrl.testcatalog.org/show/hsTrop Current Interpretive Data last revised 2020. Blood 11/12/2024 10:5 4 PM CDT 11/12/2024 11:04 PM CDT [facility] LAB BLOOD ORDERABLES Final Res ult Performing Organization Address [facility]/ZIP Co de Phone Number [address] [address] * COVID-19 Coronavirus RNA Nasopharyngeal (11/12/2024 10:54 PM CDT) [facility] COVID-19 RNA Negative Negative Nasopharyngeal 11/12/2024 10 :54 PM CDT 11/12/2024 11:04 PM CDT Bhupinder CONLEY - 11/12/2024 11:40 PM CDT Is the patient experiencing any symptoms consistent with COVID (eg. Fever, cough, shortness of breath)?->No What is the reason for testing?->Screening prior to Behavioral health admission Interpretive data Testing performed by [facility]. This test is performed using the [employer] Virtus Xpert Xpress CoV-2 plus assay. This is a real-time RT-PCR test intended for the qualitative detection of nucleic acid from the SARS-CoV-2. This assay has been cleared by the [place] Food and Drug administration. The performance characteristics have been verified by the [facility]. Results must be considered in the clinical context, and a negative result does not rule out infection. Interpretive data last revised 2023. Interpretive data Testing performed by [facility]. This test is performed using the [employer] Virtus Xpert Xpress CoV-2 plus assay. This is a real-time RT-PCR test intended for the qualitative detection of nucleic acid from the SARS-CoV-2. This assay has been cleared by the [place] Food and Drug administration. The performance characteristics have been verified by the [facility]. Results must be considered in the clinical context, and a negative result does not rule out infection. Interpretive data last revised 2023. Ernie Suarez DO LAB MICROBIOLOGY - GENERAL ORD ERABLES Final Result [facility] [address] [facility] Department of Laboratories [place], [place] [id number] * eGFR (11/12/2024 10:54 PM CDT) eGFR 83 >=60 mL/min/1. 73 m2 Comment: Interpretive Data Reference Interval Normal >/= 90 mL/min/1.73m2 Mildly decreased* 60 - 89 mL/min/1.73m2 Mildly to moderately decreased 45 - 59 mL/min/1.73m2 Moderately to severely decreased 30 - 44 mL/min/1.73m2 Severely decreased 15 - 29 mL/min/1.73m2 Kidney Failure < 15 mL/min/1.73m2 *Relative to young adult level Estimated glomerular filtration rate is determined by the 2020 CKD-EPI equation recommended by the National Kidney Foundation (A Unifying Approach to GFR Estimation: Recommendations of the NKF-ASK Task Force on Reassessing the Inclusion of Race in Diagnosing Kidney Disease, JASN 202). The CKD-EPI equation should not be used for patients with unstable renal function and has not been validated in children and those over 70. Current interpretive data was last reviewed 2021. Blood 11/12/2024 10:5 4 PM CDT 11/12/2024 11:04 PM CDT us Ernie Suarez DO LAB BLOOD ORDERABLES Final Res ult [facility] [address] [facility] Department [place] [address] * Differential, auto (11/12/2024 10:54 PM CDT) Neutrophil abs 2.15 1.50 - 6.50 K/cumm Imm gran abs 0.01 0.00 - 0.10 K/cumm [facility] Lymphocyte abs 3.11 0.80 - 3.30 K/cumm [facility] Monocyte abs 0.53 0.20 - 0.80 K/cumm [facility] Eosinophil abs 0.22 0.00 - 0.50 K/cumm [facility] Basophil abs 0.04 0.00 - 0.10 K/cumm [facility] Neutrophil pct 35.5 % [facility] Comment: Interpretive Data Percent cell count reference ranges are not reported, since discordance with absolute values may lead to misinterpretation of CBC data. Current Interpretive Data was last revised on 2017. Imm gran pct 0.2 % [facility] Comment: Interpretive Data Percent cell count reference ranges are not reported, since discordance with absolute values may lead to misinterpretation of CBC data. Current Interpretive Data was last revised on 2017. Lymphocyte pct 51.3 % [facility] Comment: Interpretive Data Percent cell count reference ranges are not reported, since discordance with absolute values may lead to misinterpretation of CBC data. Current Interpretive Data was last revised on 2017. Monocyte pct 8.7 % [facility] Comment: Interpretive Data Percent cell count reference ranges are not reported, since discordance with absolute values may lead to misinterpretation of CBC data. Current Interpretive Data was last revised on 2017. Eosinophil pct 3.6 % [facility] Comment: Interpretive Data Percent cell count reference ranges are not reported, since discordance with absolute values may lead to misinterpretation of CBC data. Current Interpretive Data was last revised on 2017. Basophil pct 0.7 % [facility] Comment: Interpretive Data Percent cell count reference ranges are not reported, since discordance with absolute values may lead to misinterpretation of CBC data. Current Interpretive Data was last revised on 2017. Blood 11/12/2024 10:5 4 PM CDT 11/12/2024 11:04 PM CDT us Ernie Suarez DO LAB BLOOD ORDERABLES Final Res ult [facility] [address] [facility] Department [place] [address] * (ABNORMAL) CBC with auto differential (11/12/2024 10:54 PM CDT) WBC 6.06 3.80 - 9.90 K/cumm Hgb 12.4(L) 13.0 - 17.5 g/dL [facility] Hct 37.5(L) 38.9 - 50.3 % [facility] Plt 232 150 - 400 K/cumm [facility] MPV 9.4 9.1 - 12.3 fL [facility] RBC 4.67 4.30 - 5.80 M/cumm [facility] MCV 80.3(L) 81.3 - 96.4 fL [facility] MCH 26.6(L) 27.1 - 33.3 pg [facility] MCHC 33.1 32.3 - 35.7 g/dL [facility] RDW CV 15.9(H) 11.1 - 14.9 % [facility] RDW SD 46.0 35.7 - 48.1 fL [facility] NRBC abs 0.00 0.00 - 0.01 K/cumm [facility] Blood Venous blood specimen / Unknown 11/12/2024 10:54 PM CDT 11/12/2024 11:04 PM CDT Ernie Basilio[employer] LAB BLOOD ORDERABLES Final Res ult Performing Organization Address [facility] Co de Phone Number [address] [address] * (ABNORMAL) Ethanol (11/12/2024 10:54 PM CDT) Ethanol 77(H) <=10 mg/dL Comment: Interpretive Data Legal limit of intoxication > or = 80 mg/dL Levels > or = 400 mg/dL are potentially TOXIC. Current interpretive data was last revised on 2018. Blood 11/12/2024 10:5 4 PM CDT 11/12/2024 11:04 PM CDT Ernie Basilio[employer] LAB BLOOD ORDERABLES Final Res ult Performing Organization Address [facility] Co de Phone Number [address] [address] * (ABNORMAL) Comprehensive metabolic panel (11/12/2024 10:54 PM CDT) Pathologist [facility] Sodium 137 135 - 145 mmol/L Potassium, pl 3.6 3.3 - 4.9 mmol/L [facility] Chloride 102 97 - 110 mmol/L [facility] CO2 21(L) 22 - 32 mmol/L [facility] Anion gap 14 2 - 15 mmol/L [facility] BUN 16 6 - 25 mg/dL [facility] Creatinine 1.04 0.80 - 1.30 mg/dL [facility] Glucose 202(H) 70 - 199 mg/dL [facility] Comment: Interpretive Data Fasting glucose >/= 126 mg/dl is diagnostic for diabetes. Fasting is defined as no caloric intake for at least 8 hours. Fasting glucose between 100 mg/dl to 125 mg/dl is diagnostic of prediabetes. In a patient with classic symptoms of hyperglycemia or hyperglycemic crisis, a random glucose >/= 200 mg/dl is diagnostic for diabetes. In the absence of unequivocal hyperglycemia, results should be confirmed by repeat testing. The classification and Diagnosis of Diabetes Diabetes Care 202; 46: S19-S40. Current interpretive data was last revised 2022. Calcium 8.8 8.5 - 10.3 mg/dL [facility] Bilirubin, total 0.7 0.1 - 1.2 mg/dL [facility] Protein, pl 7.2 6.5 - 8.5 g/dL [facility] Albumin 4.0 3.5 - 5.0 g/dL [facility] Alk phos 61 40 - 130 Units/L [facility] ALT 16 7 - 55 Units/L [facility] AST 30 10 - 50 Units/L [facility] Blood 11/12/2024 10:5 4 PM CDT 11/12/2024 11:04 PM CDT Erine Suarez DO LAB BLOOD ORDERABLES Final Res ult Performing Organization Address City/[facility] Co de Phone Number [facility] [address] [facility] Department [place] [address] * ECG 12 lead (11/12/2024 10:48 PM CDT) Ventricular Rate EKG/Min 87 BPM [facility] Atrial Rate 87 BPM [facility] VA-Interval (MSEC) 138 ms [facility] QRS-Interval (MSEC) 150 ms [facility] QT-Interval (MSEC) 436 ms [facility] QTc 524 ms [facility] P Upper Tract 44 degrees [facility] R Upper Tract -51 degrees [facility] T Upper Tract 130 degrees [facility] Diagnosis Normal sinus rhythm Possible Left atrial enlargement Left axis deviation Left bundle branch block Confirmed by YASH ARNOLD M.D. ([id number]) on 11/13/2024 5:43:10 PM [facility] 11/12/2024 10:4 8 PM CDT 11/13/2024 5:43 PM CDT Ernie Suarez DO ECG ORDERABLES Final Result Performing Organization Address [facility]/ZIP Co de Phone Number [facility] * POCT glucose (11/08/2024 12:46 PM CDT) Glucose, POC 123 70 - 199 mg/dL Blood 11/08/2024 12:4 6 PM CDT 11/08/2024 12:46 PM CDT us Notinfile Unknown LAB POCT ORDERABLES - DEVICE F inal Result Performing Organization Address [facility] Co de Phone Number [facility] [address] [facility] [address] * (ABNORMAL) Urinalysis reflex to microscopic and culture Urine (11/08/2024 7:31 AM CDT) Color, ur Yellow Yellow Clarity, ur Clear Clear [facility] Specific gravity, ur 1.025 1.003 - 1.030 [facility] pH, urine 6.0 [facility] Comment: Interpretive Data U rine pH is affected by diet, medications, systemic acid-base disturbances, and renal tubular function. pH may affect urinary stone formation. For example, urine pH below 6.0 may help reduce the tendency for calcium phosphate stones and pH greater than 6.0 may reduce the tendency for uric acid stone formation. Source: [facility] Current Interpretive Data was last revised on 2017 Protein, ur ql 1+(A) Negative [facility] Glucose, ur ql Negative Negative [facility] Ketones, ur Negative Negative [facility] Bilirubin, ur Negative Negative [facility] Blood, ur Negative Negative [facility] Urobilinogen, ur <2.0 <2.0 mg/dL [facility] Nitrite, ur Negative Negative [facility] Leukocyte esterase, ur Negative Negative [facility] UA reflex comment Reflex to microscopic UA will be performed. [facility] Urine 11/08/2024 7:31 AM CDT 11/08/2024 7:33 AM CDT Mayra GREEN LAB MICROBIOLOGY - GENERAL ORDER ANISA Final Result Performing Organization Address [facility]/ZIP Co de Phone Number JÚNIOR [address] [place] [address] * (ABNORMAL) Drugs of Abuse Screen, Urine without Confirmation (11/08/2024 7:31 AM CDT) [facility] Amphetamine, ur Not Detected CutOff 500ng/mL Comment: Interpretive Data - Amphetamines: Samples containing greater than 500 ng/mL d-methamphetamine or other cross-reacting amphetamine compounds are reported as positive. Amphetamine immunoassays are subject to significant false positive rates due to cross-reactivity of non-amphetamine drugs. Confirmatory testing required for definitive results. Current Interpretive Data was last reviewed 2022. Barbiturates, ur Not Detected CutOff 200ng/mL [facility] Comment: Interpretive Data - Barbiturates: Samples containing greater than 200 ng/mL secobarbital or other cross-reacting barbiturate compounds are reported as positive. False positive and false negative results are possible. Confirmatory testing required for definitive results. Current Interpretive Data was last reviewed 2022. Benzodiazepines, ur Not Detected CutOff 100ng/mL [facility] Comment: Interpretive Data - Benzodiazepines: Samples containing greater than 100 ng/mL nordiazepam or other cross-reacting compounds are reported as positive. False positive and false negative results are possible. Confirmatory testing required for definitive results. Current Interpretive Data was last reviewed 2022. Cannabinoids, ur Not Detected CutOff 50 ng/mL [facility] Comment: Interpretive Data - Cannabinoids: Samples containing greater than 50 ng/mL delta-9 THC -COOH or other cross- reacting compounds are reported as positive. False positive and false negative results are possible. Confirmatory testing required for definitive results. Current Interpretive Data was last reviewed 2022. Cocaine, ur Screen Positive, presumptive (A) CutOff 150ng/mL [facility] Comment: Interpretive Data - Cocaine: Samples containing greater than 150 ng/mL benzoylecgonine or other cross- reacting compounds are reported as positive. False positive and false negative results are possible. Confirmatory testing required for definitive results. Current Interpretive Data was last reviewed 2022. Fentanyl, Ur Not Detected CutOff 5 ng/mL [facility] Comment: Interpretive Data - Fentanyl: Samples containing greater than 5 ng/mL norfentanyl, fentanyl, or other cross-reacting fentanyl compounds are reported as positive. False positive and false negative results are possible. Confirmatory testing required for definitive results. Current Interpretive Data was last reviewed 2023. Methadone, ur Not Detected CutOff 300ng/mL [facility] Comment: Interpretive Data - Methadone: Samples containing greater than 300 ng/mL d,l-methadone or other cross-reacting compounds are reported as positive. False positive and false negative results are possible. Confirmatory testing required for definitive results. Current Interpretive Data was last reviewed 2022. Opiates, ur Not Detected CutOff 300ng/mL [facility] Comment: Interpretive Data - Opiates: Samples containing greater than 300 ng/mL morphine or other cross-reacting compounds are reported as positive. False positive and false negative results are possible. Confirmatory testing required for definitive results. Current Interpretive Data was last reviewed 2022. Oxycodone, ur Not Detected CutOff 100ng/mL [facility] Comment: Interpretive Data - Oxycodone: Samples containing greater than 100 ng/mL oxycodone or other cross-reacting compounds are reported as positive. False positive and false negative results are possible. Confirmatory testing required for definitive results. Current Interpretive Data was last reviewed 2022. Phencyclidine, ur Not Detected CutOff 25 ng/mL [facility] Comment: Interpretive Data - Phencyclidine: Samples containing greater than 25 ng/mL phencyclidine or other cross-reacting compounds are reported as positive. False positive and false negative results are possible. Confirmatory testing required for definitive results. Current Interpretive Data was last reviewed 2022. Urine Creatinine 181 mg/dL [facility] Comment: Interpretive Data Urine Creatinine: < 10 mg/dL is extremely dilute = or > 10 but < 20 mg/dL is dilute = or > 20 mg/dL is normal Current Interpretive Data was last revised on 2017. Urine 11/08/2024 7:31 AM CDT 11/08/2024 7:33 AM CDT Narrative JÚNIOR - 11/08/2024 8:06 AM CDT Drug of Abuse screening is performed by immunoassay for medical purposes only. This is not to be used for Pain Management purposes. us Mayra GREEN LAB URINE ORDERABLES Final Resul t [facility] [address] [facility] [place] [address] * (ABNORMAL) Urinalysis, microscopic only (11/08/2024 7:31 AM CDT) WBC, ur 0-5 0 - 5 /HPF RBC, ur 0-2 0 - 2 /HPF [facility] Mucous, ur Present(A) [facility] Culture Reflex Comment Reflex conditions for urine culture (WBC >10) not met. [facility] Urine 11/08/2024 7:31 AM CDT 11/08/2024 7:33 AM CDT Mayra GREEN LAB URINE ORDERABLES Final Resul t J[facility] [address] [facility] [place] [address] * Influenza A/B, RSV, and COVID-19 PCR Nasopharyngeal (11/08/2024 3:18 AM CDT) Pathologist [facility] [place] COVID-19 RNA Negative Negative Influenza A RNA Negative Negative [facility] Influenza B RNA Negative Negative [facility] RSV RNA Negative Negative [facility] Comment: Interpretive data: Testing performed by [facility]. This test is performed using the [employer] Virtus Xpert Xpress CoV-2/Flu/RSV plus assay. This is a multiplex, real-time reverse transcriptase PCR assay intended for the qualitative detection of nucleic acid from SARS-CoV-2, influenza A, influenza B, and respiratory syncytial virus. This assay has been cleared by the [place] Food and Drug administration. The performance characteristics have been verified by the [facility]. Results must be considered in the clinical context, and a negative result does not rule out infection. Interpretive Data last revised 2023 Nasopharyngeal 11/08/2024 3: 18 AM CDT 11/08/2024 3:21 AM CDT Narrative [facility] - 11/08/2024 4:00 AM CDT Is the Patient experiencing symptoms consistent with COVID?->Unknown Mayra GREEN LAB MICROBIOLOGY - GENERAL ORDER ANISA Final Result Performing Organization Address City/[facility]/ZIP Co de Phone Number JÚNIOR [address] [address] * eGFR (11/08/2024 3:18 AM CDT) [facility] eGFR >90 >=60 mL/min/1. 73 m2 Comment: Interpretive Data Reference Interval Normal >/= 90 mL/min/1.73m2 Mildly decreased* 60 - 89 mL/min/1.73m2 Mildly to moderately decreased 45 - 59 mL/min/1.73m2 Moderately to severely decreased 30 - 44 mL/min/1.73m2 Severely decreased 15 - 29 mL/min/1.73m2 Kidney Failure < 15 mL/min/1.73m2 *Relative to young adult level Estimated glomerular filtration rate is determined by the 2020 CKD-EPI equation recommended by the National Kid[employer] (A Unifying Approach to GFR Estimation: Recommendations of the NKF-ASK Task Force on Reassessing the Inclusion of Race in Diagnosing Kidney Disease, JASN 2020). The CKD-EPI equation should not be used for patients with unstable renal function and has not been validated in children and those over 70. Current interpretive data was last reviewed 2021. Blood 11/08/2024 3:18 AM CDT 11/08/2024 3:20 AM CDT us Mayra GREEN LAB BLOOD ORDERABLES Final Resul t Performing Organization Address City/[facility]/ZIP Co de Phone Number JÚNIOR [address] [place] [address] * Differential, auto (11/08/2024 3:18 AM CDT) [facility] Neutrophil abs 2.10 1.50 - 6.50 K/cumm Imm gran abs 0.01 0.00 - 0.10 K/cumm [facility] Lymphocyte abs 3.24 0.80 - 3.30 K/cumm [facility] Monocyte abs 0.51 0.20 - 0.80 K/cumm [facility] Eosinophil abs 0.29 0.00 - 0.50 K/cumm [facility] Basophil abs 0.06 0.00 - 0.10 K/cumm [facility] Neutrophil pct 33.7 % [facility] Comment: Interpretive Data Percent cell count reference ranges are not reported, since discordance with absolute values may lead to misinterpretation of CBC data. Current Interpretive Data was last revised on 2017. Imm gran pct 0.2 % [facility] Comment: Interpretive Data Percent cell count reference ranges are not reported, since discordance with absolute values may lead to misinterpretation of CBC data. Current Interpretive Data was last revised on 2017. Lymphocyte pct 52.2 % [facility] Comment: Interpretive Data Percent cell count reference ranges are not reported, since discordance with absolute values may lead to misinterpretation of CBC data. Current Interpretive Data was last revised on 2017. Monocyte pct 8.2 % [facility] Comment: Interpretive Data Percent cell count reference ranges are not reported, since discordance with absolute values may lead to misinterpretation of CBC data. Current Interpretive Data was last revised on 2017. Eosinophil pct 4.7 % [facility] Comment: Interpretive Data Percent cell count reference ranges are not reported, since discordance with absolute values may lead to misinterpretation of CBC data. Current Interpretive Data was last revised on 2017. Basophil pct 1.0 % [facility] Comment: Interpretive Data Percent cell count reference ranges are not reported, since discordance with absolute values may lead to misinterpretation of CBC data. Current Interpretive Data was last revised on 2017. Blood 11/08/2024 3:18 AM CDT 11/08/2024 3:20 AM CDT us Mayra GREEN LAB BLOOD ORDERABLES Final Resul t J[facility] [address] [facility] [place] [address] * Thyroid Function Barton (11/08/2024 3:18 AM CDT) TSH 1.01 0.30 - 4.20 mcIUnit/mL Blood 11/08/2024 3:18 AM CDT 11/08/2024 3:20 AM CDT Mayra GREEN LAB BLOOD ORDERABLES Final Resul t Performing Organization Address [facility] de Phone Number JÚNIOR CONLEY [address] [place] [address] [place] [address] * (ABNORMAL) CBC with auto differential (11/08/2024 3:18 AM CDT) Pathologist [facility] [place] WBC 6.21 3.80 - 9.90 K/cumm Hgb 12.3(L) 13.0 - 17.5 g/dL [facility] Hct 38.3(L) 38.9 - 50.3 % [facility] Plt 259 150 - 400 K/cumm [facility] MPV 10.0 9.1 - 12.3 fL [facility] RBC 4.70 4.30 - 5.80 M/cumm [facility] MCV 81.5 81.3 - 96.4 fL [facility] MCH 26.2(L) 27.1 - 33.3 pg [facility] MCHC 32.1(L) 32.3 - 35.7 g/dL [facility] RDW CV 15.9(H) 11.1 - 14.9 % [facility] RDW SD 47.4 35.7 - 48.1 fL [facility] NRBC abs 0.00 0.00 - 0.01 K/cumm [facility] Blood 11/08/2024 3:18 AM CDT 11/08/2024 3:20 AM CDT Mayra GREEN LAB BLOOD ORDERABLES Final Resul t Performing Organization Address [facility] Co de Phone Number JÚNIOR [address] [address] * (ABNORMAL) Ethanol (11/08/2024 3:18 AM CDT) Pathologist [facility] [place] Ethanol 39(H) <=10 mg/dL Comment: Interpretive Data Legal limit of intoxication > or = 80 mg/dL Levels > or = 400 mg/dL are potentially TOXIC. Current interpretive data was last revised on 2018. Blood 11/08/2024 3:18 AM CDT 11/08/2024 3:20 AM CDT us Mayra GREEN LAB BLOOD ORDERABLES Final Resul t [facility] [address] [facility] Department [place] [address] * (ABNORMAL) Comprehensive metabolic panel (11/08/2024 3:18 AM CDT) Sodium 140 135 - 145 mmol/L Potassium, pl 4.1 3.3 - 4.9 mmol/L [facility] Comment:Hemolyzed; Potassium value may be falsely elevated by as much as 1.0 mmol/L. Suggest redraw and reanalysis. Chloride 104 97 - 110 mmol/L [facility] CO2 22 22 - 32 mmol/L [facility] Anion gap 14 2 - 15 mmol/L [facility] BUN 15 6 - 25 mg/dL [facility] Creatinine 0.96 0.80 - 1.30 mg/dL [facility] Glucose 230(H) 70 - 199 mg/dL [facility] Comment: Interpretive Data Fasting glucose >/= 126 mg/dl is diagnostic for diabetes. Fasting is defined as no caloric intake for at least 8 hours. Fasting glucose between 100 mg/dl to 125 mg/dl is diagnostic of prediabetes. In a patient with classic symptoms of hyperglycemia or hyperglycemic crisis, a random glucose >/= 200 mg/dl is diagnostic for diabetes. In the absence of unequivocal hyperglycemia, results should be confirmed by repeat testing. The classification and Diagnosis of Diabetes Diabetes Care 202; 46: S19-S40. Current interpretive data was last revised 2022. Calcium 9.0 8.5 - 10.3 mg/dL [facility] Bilirubin, total 0.2 0.1 - 1.2 mg/dL [facility] Protein, pl 7.4 6.5 - 8.5 g/dL [facility] Albumin 4.0 3.5 - 5.0 g/dL [facility] Alk phos 62 40 - 130 Units/L [facility] ALT 17 7 - 55 Units/L [facility] AST 30 10 - 50 Units/L J[facility] Blood 11/08/2024 3:18 AM CDT 11/08/2024 3:20 AM CDT us Mayra GREEN LAB BLOOD ORDERABLES Final Resul t [facility] [address] [facility] Department [place] [address] * Urinalysis reflex to microscopic and culture Urine, clean voided (10/14/2024 10:49 AM CDT) Color, ur Yellow Yellow Comment:Testing performed by : [address] [address] Clarity, ur Clear Clear JÚNIOR Comment:Testing performed by : [address] [address] Specific gravity, ur 1.009 1.003 - 1.030 J[facility]OR Comment:Testing performed by : [address] [address] pH, urine 5.5 J[facility]NIOR Comment: Interpretive Data U rine pH is affected by diet, medications, systemic acid-base disturbances, and renal tubular function. pH may affect urinary stone formation. For example, urine pH below 6.0 may help reduce the tendency for calcium phosphate stones and pH greater than 6.0 may reduce the tendency for uric acid stone formation. Source: [facility] [employer] Current Interpretive Data was last revised on 2017 Testing performed by: [address] [address] Protein, ur ql Negative Negative [facility] Comment:Testing performed by : [address] [address] Glucose, ur ql Negative Negative [facility] Comment:Testing performed by : [address] [address] Ketones, ur Negative Negative [facility] Comment:Testing performed by : [address] [address] Bilirubin, ur Negative Negative J[facility] Comment:Testing performed by : [address] [address] Blood, ur Negative Negative J[facility]OR Comment:Testing performed by : [address], [place]., [address] Urobilinogen, ur <2.0 <2.0 mg/dL J[facility] Comment:Testing performed by : [address], [place]., [address] Nitrite, ur Negative Negative J[facility] Comment:Testing performed by : [address], [place]., [address] Leukocyte esterase, ur Negative Negative [facility] Comment:Testing performed by : [address], [place]., [address] UA reflex comment Reflex conditions for microscopic UA and culture not met. J[facility]NIOR Comment:Testing performed by : [address], [place]., [address] Urine, clean voided 10/14/2024 10:49 AM CDT 10/14/2024 10:51 AM CDT us Radha Hobson MD LAB MICROBIOLOGY - GENERA L ORDERABLES Final Result [facility] [address] [facility] Department [place] [address] * Influenza A/B, RSV, and COVID-19 PCR Nasopharyngeal (10/14/2024 10:03 AM CDT) Pathologist [facility] [place] COVID-19 RNA Negative Negative Comment:Testing performed by : [address] [address] Influenza A RNA Negative Negative J[facility] Comment:Testing performed by : [address] [address] Influenza B RNA Negative Negative [facility] Comment:Testing performed by : [address] [address] RSV RNA Negative Negative J[facility] Comment: Interpretive data: Testing performed by [facility]. This test is performed using the [employer] Virtus Xpert Xpress CoV-2/Flu/RSV plus assay. This is a multiplex, real-time reverse transcriptase PCR assay intended for the qualitative detection of nucleic acid from SARS-CoV-2, influenza A, influenza B, and respiratory syncytial virus. This assay has been cleared by the [place] Food and Drug administration. The performance characteristics have been verified by the [facility]. Results must be considered in the clinical context, and a negative result does not rule out infection. Interpretive Data last revised 2023 Testing performed by: [address] [address] Nasopharyngeal 10/14/2024 10 :03 AM CDT 10/14/2024 10:09 AM CDT Narrative JÚNIOR - 10/14/2024 10:58 AM CDT Is the Patient experiencing symptoms consistent with COVID?->Yes Radha Hobson MD LAB MICROBIOLOGY - GENERA L ORDERABLES Final Result [facility] [address] [facility] Department [place] [address] * (ABNORMAL) Drugs of Abuse Screen, Urine without Confirmation (10/14/2024 5:31 AM CDT) [facility] Amphetamine, ur Not Detected CutOff 500ng/mL Comment: Interpretive Data - Amphetamines: Samples containing greater than 500 ng/mL d-methamphetamine or other cross-reacting amphetamine compounds are reported as positive. Amphetamine immunoassays are subject to significant false positive rates due to cross-reactivity of non-amphetamine drugs. Confirmatory testing required for definitive results. Current Interpretive Data was last reviewed 2022. Testing performed by: [address] [address] Barbiturates, ur Not Detected CutOff 200ng/mL [facility] Comment: Interpretive Data - Barbiturates: Samples containing greater than 200 ng/mL secobarbital or other cross-reacting barbiturate compounds are reported as positive. False positive and false negative results are possible. Confirmatory testing required for definitive results. Current Interpretive Data was last reviewed 2022. Testing performed by: [address] [address] Benzodiazepines, ur Not Detected CutOff 100ng/mL [facility] Comment: Interpretive Data - Benzodiazepines: Samples containing greater than 100 ng/mL nordiazepam or other cross-reacting compounds are reported as positive. False positive and false negative results are possible. Confirmatory testing required for definitive results. Current Interpretive Data was last reviewed 2022. Testing performed by: [facility], [address] [place] [address]., [address] Cannabinoids, ur Not Detected CutOff 50 ng/mL [facility] Comment: Interpretive Data - Cannabinoids: Samples containing greater than 50 ng/mL delta-9 THC -COOH or other cross- reacting compounds are reported as positive. False positive and false negative results are possible. Confirmatory testing required for definitive results. Current Interpretive Data was last reviewed 2022. Testing performed by: [address] [address] Cocaine, ur Screen Positive, presumptive (A) CutOff 150ng/mL [facility] Comment: Interpretive Data - Cocaine: Samples containing greater than 150 ng/mL benzoylecgonine or other cross- reacting compounds are reported as positive. False positive and false negative results are possible. Confirmatory testing required for definitive results. Current Interpretive Data was last reviewed 2022. Testing performed by: [address] [address] Fentanyl, Ur Not Detected Cutoff 1 ng/mL [facility] Comment: Interpretive Data - Fentanyl: Samples containing greater than 1 ng/mL fentanyl or other cross-reacting fentanyl compounds are reported as positive. False positive and false negative results are possible. Confirmatory testing required for definitive results. Current Interpretive Data was last reviewed 2022. Testing performed by: [address] [address] Methadone, ur Not Detected CutOff 300ng/mL [facility] Comment: Interpretive Data - Methadone: Samples containing greater than 300 ng/mL d,l-methadone or other cross-reacting compounds are reported as positive. False positive and false negative results are possible. Confirmatory testing required for definitive results. Current Interpretive Data was last reviewed 2022. Testing performed by: [address] [address] Opiates, ur Not Detected CutOff 300ng/mL [facility] Comment: Interpretive Data - Opiates: Samples containing greater than 300 ng/mL morphine or other cross-reacting compounds are reported as positive. False positive and false negative results are possible. Confirmatory testing required for definitive results. Current Interpretive Data was last reviewed 2022. Testing performed by: [address] [address] Oxycodone, ur Not Detected CutOff 100ng/mL [facility] Comment: Interpretive Data - Oxycodone: Samples containing greater than 100 ng/mL oxycodone or other cross-reacting compounds are reported as positive. False positive and false negative results are possible. Confirmatory testing required for definitive results. Current Interpretive Data was last reviewed 2022. Testing performed by: [address] [address] Phencyclidine, ur Not Detected CutOff 25 ng/mL [facility] Comment: Interpretive Data - Phencyclidine: Samples containing greater than 25 ng/mL phencyclidine or other cross-reacting compounds are reported as positive. False positive and false negative results are possible. Confirmatory testing required for definitive results. Current Interpretive Data was last reviewed 2022. Testing performed by: [address] [address] Urine Creatinine 45 mg/dL [facility] Comment: Interpretive Data Urine Creatinine: < 10 mg/dL is extremely dilute = or > 10 but < 20 mg/dL is dilute = or > 20 mg/dL is normal Current Interpretive Data was last revised on 2017. Testing performed by: [address] [address] Urine 10/14/2024 5:31 AM CDT 10/14/2024 5:36 AM CDT Narrative JÚNIOR - 10/14/2024 6:04 AM CDT Drug of Abuse screening is performed by immunoassay for medical purposes only. This is not to be used for Pain Management purposes. us Yan Palma Jr., MD LAB URINE ORDERABLES Fi nal Result [facility] [address] [facility] Department [place] [address] * (ABNORMAL) Troponin T high-sensitivity 2-hour (10/14/2024 5:19 AM CDT) Trop T hs 27(H) <=22 ng/L Comment: Interpretive Data For further hscTnT resources including the diagnostic algorithm and an aid in interpretation, copy and paste this link: [email or web address] Current Interpretive Data last revised 2020. Testing performed by: [facility], [address] [place] [address]., [address] Trop T hs delta 0 ng/L JÚNIOR Comment:Testing performed by : [address] [address] Trop T hs interp Insignificant JÚNIOR Comment:Testing performed by : [address] [address] Blood 10/14/2024 5:19 AM CDT 10/14/2024 5:29 AM CDT Yan Palma Jr., MD LAB BLOOD ORDERABLES Fi nal Result Performing Organization Address [facility] Co de Phone Number [place] [id number] [facility] [place] [address] * (ABNORMAL) Ethanol (10/14/2024 4:35 AM CDT) Ethanol 58(H) <=10 mg/dL Comment: Interpretive Data Legal limit of intoxication > or = 80 mg/dL Levels > or = 400 mg/dL are potentially TOXIC. Current interpretive data was last revised on 2018. Testing performed by: [address] [address] Blood 10/14/2024 4:35 AM CDT 10/14/2024 4:38 AM CDT Yan Palma Jr., MD LAB BLOOD ORDERABLES Fi nal Result Performing Organization Address City/[facility] Co de Phone Number CERNER [facility] [address] [place] [address] * XR Chest 1 Vw Portable (if patient condition/safety warrant portable) (10/14/2024 3:46 AM CDT) Anatomical Region Laterality Modality Body, Chest N/A Computed Radiogr aphy 10/14/2024 3:51 AM CDT Narrative 10/14/2024 3:52 AM CDT EXAM DESCRIPTION: XR CHEST 1 VIEW REASON FOR STUDY: chest pain Pt to ED via EMS from [facility] with c/o chest pain tonight TECHNIQUE: Portable upright AP view of the chest. COMPARISON: 09/13/2024 FINDINGS: LUNGS AND PLEURA: No focal opacity, large effusion, or pneumothorax identified. HEART/MEDIASTINUM: Trachea midline. Cardiac silhouette normal in size. Mediastinal contours appear normal. BONES: Unremarkable. CHEST WALL: Fragments in the right upper chest. UPPER ABDOMEN: Unremarkable. IMPRESSION: No acute abnormality identified. THIS IS AN ELECTRONICALLY VERIFIED FINAL REPORT 10/14/2024 3:52 AM - Electronically signed by Justin Benson M.D. AR: CIERA Report ID: [id number] Reading Location: [id number] Procedure Note Justin Benson MD - 10/14/2024 EXAM DESCRIPTION: XR CHEST 1 VIEW REASON FOR STUDY: chest pain Pt to ED via EMS from [facility] with c/o chest pain tonight TECHNIQUE: Portable upright AP view of the chest. COMPARISON: 09/13/2024 FINDINGS: LUNGS AND PLEURA: No focal opacity, large effusion, orpneumothorax identified. HEART/MEDIASTINUM: Trachea midline. Cardiac silhouette normal in size. Mediastinal contours appear normal. BONES: Unremarkable. CHEST WALL: Fragments in the right upper chest. UPPER ABDOMEN: Unremarkable. IMPRESSION: No acute abnormality identified. THIS IS AN ELECTRONICALLY VERIFIED FINAL REPORT 10/14/2024 3:52 AM - Electronically signed by Justin Benson M.D. AR: CIERA Report ID: [id number] Reading Location: [id number] Yan Palma Jr., MD IMG XR PROCEDURES Final Result * ECG 12 lead (10/14/2024 3:06 AM CDT) Pathologist [facility] [place] Ventricular Rate EKG/Min 85 BPM [facility] Atrial Rate 85 BPM [facility] VA-Interval (MSEC) 142 ms [facility] QRS-Interval (MSEC) 158 ms [facility] QT-Interval (MSEC) 436 ms [facility] QTc 518 ms [facility] P Upper Tract 54 degrees [facility] R Upper Tract -47 degrees [facility] T Upper Tract 128 degrees [facility] Diagnosis Normal sinus rhythm Possible Left atrial enlargement Left axis deviation Left bundle branch block Abnormal ECG When compared with ECG of 13-SEP-2024 08:51, No significant change was found Confirmed by SULTAN ESPINOZA M.D. ([id number]) on 10/14/2024 2:35:55 PM [facility] 10/14/2024 3:06 AM CDT 10/14/2024 2:35 PM CDT Yan Palma Jr., MD ECG ORDERABLES Final R esult [facility] * (ABNORMAL) Troponin T high-sensitivity series (baseline, 2hr, 4hr, 6hr) (10/14/2024 3:04 AM CDT) Pathologist [facility] [place] Trop T hs 27(H) <=22 ng/L Comment: Interpretive Data For further hscTnT resources including the diagnostic algorithm and an aid in interpretation, copy and paste this link: [email or web address].testcatalog.org/show/[email or web address] Current Interpretive Data last revised 2020. Testing performed by: [facility], [address] [place] [address]., [address] Blood 10/14/2024 3:04 AM CDT 10/14/2024 3:52 AM CDT Yan Palma Jr., MD LAB BLOOD ORDERABLES Fi nal Result Performing Organization Address [facility] Co de Phone Number JÚNIOR [address] [place] [address] * eGFR (10/14/2024 3:04 AM CDT) eGFR 87 >=60 mL/min/1. 73 m2 Comment: Interpretive Data Reference Interval Normal >/= 90 mL/min/1.73m2 Mildly decreased* 60 - 89 mL/min/1.73m2 Mildly to moderately decreased 45 - 59 mL/min/1.73m2 Moderately to severely decreased 30 - 44 mL/min/1.73m2 Severely decreased 15 - 29 mL/min/1.73m2 Kidney Failure < 15 mL/min/1.73m2 *Relative to young adult level Estimated glomerular filtration rate is determined by the 2020 CKD-EPI equation recommended by the National Kid[employer] (A Unifying Approach to GFR Estimation: Recommendations of the NKF-ASK Task Force on Reassessing the Inclusion of Race in Diagnosing Kidney Disease, JASN 2020). The CKD-EPI equation should not be used for patients with unstable renal function and has not been validated in children and those over 70. Current interpretive data was last reviewed 2021. Testing performed by: [address] [address] Blood 10/14/2024 3:04 AM CDT 10/14/2024 3:52 AM CDT us Yan Palma Jr., MD LAB BLOOD ORDERABLES Fi nal Result Performing Organization Address [facility] Co de Phone Number JÚNIOR [address] [place] [address] * Differential, auto (10/14/2024 3:04 AM CDT) Neutrophil abs 1.85 1.50 - 6.50 K/cumm Comment:Testing performed by : [address] [address] Imm gran abs 0.02 0.00 - 0.10 K/cumm JÚNIOR Comment:Testing performed by : [facility], [address] [place] [address]., [address] Lymphocyte abs 2.61 0.80 - 3.30 K/cumm JÚNIOR Comment:Testing performed by : [address], [place]., [address] Monocyte abs 0.73 0.20 - 0.80 K/cumm JÚNIOR Comment:Testing performed by : [address], [place]., [address] Eosinophil abs 0.19 0.00 - 0.50 K/cumm JÚNIOR Comment:Testing performed by : [address], [place]., [address] Basophil abs 0.07 0.00 - 0.10 K/cumm [facility]TATI Comment:Testing performed by : [address] [address] Neutrophil pct 33.8 % [facility]TATI Comment: Interpretive Data Percent cell count reference ranges are not reported, since discordance with absolute values may lead to misinterpretation of CBC data. Current Interpretive Data was last revised on 2017. Testing performed by: [address] [address] Imm gran pct 0.4 % [facility] Comment: Interpretive Data Percent cell count reference ranges are not reported, since discordance with absolute values may lead to misinterpretation of CBC data. Current Interpretive Data was last revised on 2017. Testing performed by: [address] [address] Lymphocyte pct 47.7 % [facility] Comment: Interpretive Data Percent cell count reference ranges are not reported, since discordance with absolute values may lead to misinterpretation of CBC data. Current Interpretive Data was last revised on 2017. Testing performed by: [address] [address] Monocyte pct 13.3 % [facility] Comment: Interpretive Data Percent cell count reference ranges are not reported, since discordance with absolute values may lead to misinterpretation of CBC data. Current Interpretive Data was last revised on 2017. Testing performed by: [address] [address] Eosinophil pct 3.5 % JÚNIOR Comment: Interpretive Data Percent cell count reference ranges are not reported, since discordance with absolute values may lead to misinterpretation of CBC data. Current Interpretive Data was last revised on 2017. Testing performed by: [address] [address] Basophil pct 1.3 % JÚNIOR [place] Comment: Interpretive Data Percent cell count reference ranges are not reported, since discordance with absolute values may lead to misinterpretation of CBC data. Current Interpretive Data was last revised on 2017. Testing performed by: [address] [address] Blood 10/14/2024 3:04 AM CDT 10/14/2024 3:52 AM CDT us Yan Palma Jr., MD LAB BLOOD ORDERABLES [facility] Result [facility]TATI [address] Department [place] [address] * (ABNORMAL) CBC with auto differential (10/14/2024 3:04 AM CDT) WBC 5.47 3.80 - 9.90 K/cumm Comment:Testing performed by : [address] [address] Hgb 12.4(L) 13.0 - 17.5 g/dL JÚNIOR [place] Comment:Testing performed by : [address] [address] Hct 38.3(L) 38.9 - 50.3 % JÚNIOR [place] Comment:Testing performed by : [address] [address] Plt 237 150 - 400 K/cumm JÚNIOR [place] Comment:Testing performed by : [address] [address] MPV 9.7 9.1 - 12.3 fL JÚNIOR [place] Comment:Testing performed by : [address] [address] RBC 4.69 4.30 - 5.80 M/cumm JÚNIOR Comment:Testing performed by : [address] [address] MCV 81.7 81.3 - 96.4 fL JÚNIOR Comment:Testing performed by : [address] [address] MCH 26.4(L) 27.1 - 33.3 pg JÚNIOR Comment:Testing performed by : [address] [address] MCHC 32.4 32.3 - 35.7 g/dL JÚNIOR Comment:Testing performed by : [address], [address] RDW CV 16.2(H) 11.1 - 14.9 % JÚNIOR Comment:Testing performed by : [address], [address] RDW SD 47.9 35.7 - 48.1 fL JÚNIOR Comment:Testing performed by : [address] [address] NRBC abs 0.00 0.00 - 0.01 K/cumm JÚNIOR Comment:Testing performed by : [address] [address] Blood Venous blood specimen / Unknown 10/14/2024 3:04 AM CDT 10/14/2024 3:52 AM CDT Yan Palma Jr., MD LAB BLOOD ORDERABLES nal Result [facility]TATI [address] [facility] Department [place] [address] * Acetaminophen level (10/14/2024 3:04 AM CDT) Acetaminophen <5 <=5 mcg/mL Comment: Interpretive Data Significant hepatic injury may occur and treatment with n-acetyl cysteine is generally recommended if the acetaminophen level exceeds: 150 mcg/mL at 4 hours after ingestion 75 mcg/mL at 8 hours after ingestion 38 mcg/mL at 12 hours after ingestion 19 mcg/mL at 16 hours after ingestion Consult toxicology or poison control ([phone]) for unknown ingestion time. Current interpretive data was last revised 2023. Testing performed by: [address] [address] Blood 10/14/2024 3:04 AM CDT 10/14/2024 3:52 AM CDT Yan Palma Jr., MD LAB BLOOD ORDERABLES Fi nal Result Performing Organization Address [facility] de Phone Number [address] [address] * Salicylate level (10/14/2024 3:04 AM CDT) Salicylate <1.0 <=1.0 mg/dL Comment: Interpretive Data Toxic: 30 mg/dL or greater. Current interpretive data was last revised 2023. Testing performed by: [address] [address] Blood 10/14/2024 3:04 AM CDT 10/14/2024 3:52 AM CDT Yan Palma Jr., MD LAB BLOOD ORDERABLES Fi nal Result Performing Organization Address [facility] Co de Phone Number [address] [address] * Comprehensive metabolic panel (10/14/2024 3:04 AM CDT) Sodium 135 135 - 145 mmol/L Comment:Testing performed by : [address] [address] Potassium, pl 3.9 3.3 - 4.9 mmol/L JÚNIOR Comment: Hemolyzed; Potassium value may be falsely elevated by as much as 1.0 mmol/L. Suggest redraw and reanalysis. Testing performed by: [address] [address] Chloride 98 97 - 110 mmol/L JÚNIOR Comment:Testing performed by : [address] [address] CO2 24 22 - 32 mmol/L JÚNIOR Comment:Testing performed by : [address] [address] Anion gap 13 2 - 15 mmol/L JÚNIOR Comment:Testing performed by : [address] [address] BUN 9 6 - 25 mg/dL JÚNIOR Comment:Testing performed by : [address], [place]., [address] Creatinine 1.00 0.80 - 1.30 mg/dL JÚNIOR Comment:Testing performed by : [address] [address] Glucose 141 70 - 199 mg/dL JÚNIOR Comment: Interpretive Data Fasting glucose >/= 126 mg/dl is diagnostic for diabetes. Fasting is defined as no caloric intake for at least 8 hours. Fasting glucose between 100 mg/dl to 125 mg/dl is diagnostic of prediabetes. In a patient with classic symptoms of hyperglycemia or hyperglycemic crisis, a random glucose >/= 200 mg/dl is diagnostic for diabetes. In the absence of unequivocal hyperglycemia, results should be confirmed by repeat testing. The classification and Diagnosis of Diabetes Diabetes Care 202; 46: S19-S40. Current interpretive data was last revised 2022. Testing performed by: [address] [address] Calcium 9.3 8.5 - 10.3 mg/dL JÚNIOR Comment:Testing performed by : [address] [address] Bilirubin, total 0.3 0.1 - 1.2 mg/dL JÚNIOR Comment:Testing performed by : [address] [address] Protein, pl 8.0 6.5 - 8.5 g/dL JÚNIOR Comment:Testing performed by : [address] [address] Albumin 4.2 3.5 - 5.0 g/dL JÚNIOR Comment:Testing performed by : [facility], [address] [place] [address]., [address] Alk phos 57 40 - 130 Units/L JÚNIOR Comment:Testing performed by : [address] [address] ALT 17 7 - 55 Units/L JÚNIOR Comment:Testing performed by : [address] [address] AST 30 10 - 50 Units/L JÚNIOR Comment: Hemolyzed; result may be falsely elevated Testing performed by: [address] [address] Blood 10/14/2024 3:04 AM CDT 10/14/2024 3:52 AM CDT us Yan Palma Jr., MD LAB BLOOD ORDERABLES Fi nal Result Performing Organization Address City/[facility]/ZIP Co de Phone Number [address] Department [place] [address] * (ABNORMAL) POCT glucose (10/03/2024 11:10 AM CDT) Glucose, POC 335(H) 70 - 199 mg/dL Blood 10/03/2024 11:1 0 AM CDT 10/03/2024 11:10 AM CDT us Marley Mckeon MD LAB POCT ORDERABLES - DEVICE Final Result [facility] Department [place] [address] * (ABNORMAL) POCT glucose (10/02/2024 7:57 PM CDT) Glucose, POC 259(H) 70 - 199 mg/dL Blood 10/02/2024 7:57 PM CDT 10/02/2024 7:57 PM CDT us Charlene Rocha MD LAB POCT ORDERABLES - DEVICE Fin al Result Performing Organization Address City/[facility] Co de Phone Number [facility] [place] [address] * (ABNORMAL) POCT glucose (10/02/2024 5:02 PM CDT) Glucose, POC 367(H) 70 - 199 mg/dL Blood 10/02/2024 5:02 PM CDT 10/02/2024 5:02 PM CDT Charlene Rocha MD LAB POCT ORDERABLES - DEVICE Fin al Result Performing Organization Address [facility] Co de Phone Number [facility] [place] [address] * (ABNORMAL) POCT glucose (10/02/2024 11:23 AM CDT) Glucose, POC 218(H) 70 - 199 mg/dL Blood 10/02/2024 11:2 3 AM CDT 10/02/2024 11:23 AM CDT Neli Jameson MD LAB POCT ORDERABLES - DEVICE Final Result Performing Organization Address [facility] Co de Phone Number [facility] [place] [address] * POCT glucose (10/02/2024 7:01 AM CDT) Glucose, POC 172 70 - 199 mg/dL Blood 10/02/2024 7:01 AM CDT 10/02/2024 7:01 AM CDT Neli Jameson MD LAB POCT ORDERABLES - DEVICE Final Result Performing Organization Address City/[facility]/ZIP Co de Phone Number [facility] [place] [address] * (ABNORMAL) POCT glucose (10/01/2024 7:48 PM CDT) Glucose, POC 343(H) 70 - 199 mg/dL Blood 10/01/2024 7:48 PM CDT 10/01/2024 7:48 PM CDT Neli Jameson MD LAB POCT ORDERABLES - DEVICE Final Result Performing Organization Address City/[facility]/ZIP Co de Phone Number JÚNIOR [facility] Department [place] [address] * (ABNORMAL) POCT glucose (10/01/2024 5:40 PM CDT) Glucose, POC 319(H) 70 - 199 mg/dL Blood 10/01/2024 5:40 PM CDT 10/01/2024 5:40 PM CDT Neli Jameson MD LAB POCT ORDERABLES - DEVICE Final Result Performing Organization Address [facility] de Phone Number JÚNIOR [facility] [place] [address] * Ethanol (10/01/2024 5:32 AM CDT) Ethanol <10 <=10 mg/dL Comment: Interpretive Data Legal limit of intoxication > or = 80 mg/dL Levels > or = 400 mg/dL are potentially TOXIC. Current interpretive data was last revised on 2018. Blood 10/01/2024 5:32 AM CDT 10/01/2024 5:35 AM CDT Yash GREEN LAB BLOOD ORDERABLES Final R esult Performing Organization Address City/[facility]/ZIP Co de Phone Number JÚNIOR [address] [facility] Department [place] [address] * Acetaminophen level (10/01/2024 5:32 AM CDT) Acetaminophen <5 <=5 mcg/mL Comment: Interpretive Data Significant hepatic injury may occur and treatment with n-acetyl cysteine is generally recommended if the acetaminophen level exceeds: 150 mcg/mL at 4 hours after ingestion 75 mcg/mL at 8 hours after ingestion 38 mcg/mL at 12 hours after ingestion 19 mcg/mL at 16 hours after ingestion Consult toxicology or poison control ([phone]) for unknown ingestion time. Current interpretive data was last revised 2023. Blood 10/01/2024 5:32 AM CDT 10/01/2024 5:35 AM CDT Yash Cramer PA LAB BLOOD ORDERABLES Final R esult Performing Organization Address [facility]/ZIP Co de Phone Number [address] [place] [address] * POCT glucose (10/01/2024 5:31 AM CDT) Glucose, POC 188 70 - 199 mg/dL Blood 10/01/2024 5:31 AM CDT 10/01/2024 5:31 AM CDT Notinfile Unknown LAB POCT ORDERABLES - DEVICE F inal Result Performing Organization Address [facility] de Phone Number [address] [place] [address] * Urinalysis reflex to microscopic and culture Urine (09/30/2024 9:54 AM CDT) Color, ur Yellow Yellow Clarity, ur Clear Clear JÚNIOR Specific gravity, ur 1.010 1.003 - 1.030 [facility] pH, urine 5.5 JÚNIOR Comment: Interpretive Data U rine pH is affected by diet, medications, systemic acid-base disturbances, and renal tubular function. pH may affect urinary stone formation. For example, urine pH below 6.0 may help reduce the tendency for calcium phosphate stones and pH greater than 6.0 may reduce the tendency for uric acid stone formation. Source: [facility] Current Interpretive Data was last revised on 2017 Protein, ur ql Negative Negative [facility] Glucose, ur ql Negative Negative [facility] Ketones, ur Negative Negative [facility] Bilirubin, ur Negative Negative [facility] Blood, ur Negative Negative [facility] Urobilinogen, ur <2.0 <2.0 mg/dL [facility] Nitrite, ur Negative Negative [facility] Leukocyte esterase, ur Negative Negative [facility] UA reflex comment Reflex conditions for microscopic UA and culture not met. [facility] Urine 09/30/2024 9:54 AM CDT 09/30/2024 9:57 AM CDT Bettina Rubin DO LAB MICROBIOLOGY - GENERAL ORDE JUNG Final Result [facility] [address] [facility] Department [place] [address] * (ABNORMAL) Drugs of Abuse Screen, Urine without Confirmation (09/30/2024 9:54 AM CDT) Amphetamine, ur Not Detected CutOff 500ng/mL Comment: Interpretive Data - Amphetamines: Samples containing greater than 500 ng/mL d-methamphetamine or other cross-reacting amphetamine compounds are reported as positive. Amphetamine immunoassays are subject to significant false positive rates due to cross-reactivity of non-amphetamine drugs. Confirmatory testing required for definitive results. Current Interpretive Data was last reviewed 2022. Barbiturates, ur Not Detected CutOff 200ng/mL [facility] Comment: Interpretive Data - Barbiturates: Samples containing greater than 200 ng/mL secobarbital or other cross-reacting barbiturate compounds are reported as positive. False positive and false negative results are possible. Confirmatory testing required for definitive results. Current Interpretive Data was last reviewed 2022. Benzodiazepines, ur Not Detected CutOff 100ng/mL [facility] Comment: Interpretive Data - Benzodiazepines: Samples containing greater than 100 ng/mL nordiazepam or other cross-reacting compounds are reported as positive. False positive and false negative results are possible. Confirmatory testing required for definitive results. Current Interpretive Data was last reviewed 2022. Cannabinoids, ur Not Detected CutOff 50 ng/mL [facility] Comment: Interpretive Data - Cannabinoids: Samples containing greater than 50 ng/mL delta-9 THC -COOH or other cross- reacting compounds are reported as positive. False positive and false negative results are possible. Confirmatory testing required for definitive results. Current Interpretive Data was last reviewed 2022. Cocaine, ur Screen Positive, presumptive (A) CutOff 150ng/mL [facility] Comment: Interpretive Data - Cocaine: Samples containing greater than 150 ng/mL benzoylecgonine or other cross- reacting compounds are reported as positive. False positive and false negative results are possible. Confirmatory testing required for definitive results. Current Interpretive Data was last reviewed 2022. Fentanyl, Ur Not Detected CutOff 5 ng/mL [facility] Comment: Interpretive Data - Fentanyl: Samples containing greater than 5 ng/mL norfentanyl, fentanyl, or other cross-reacting fentanyl compounds are reported as positive. False positive and false negative results are possible. Confirmatory testing required for definitive results. Current Interpretive Data was last reviewed 2023. Methadone, ur Not Detected CutOff 300ng/mL [facility] Comment: Interpretive Data - Methadone: Samples containing greater than 300 ng/mL d,l-methadone or other cross-reacting compounds are reported as positive. False positive and false negative results are possible. Confirmatory testing required for definitive results. Current Interpretive Data was last reviewed 2022. Opiates, ur Not Detected CutOff 300ng/mL [facility] Comment: Interpretive Data - Opiates: Samples containing greater than 300 ng/mL morphine or other cross-reacting compounds are reported as positive. False positive and false negative results are possible. Confirmatory testing required for definitive results. Current Interpretive Data was last reviewed 2022. Oxycodone, ur Not Detected CutOff 100ng/mL [facility] Comment: Interpretive Data - Oxycodone: Samples containing greater than 100 ng/mL oxycodone or other cross-reacting compounds are reported as positive. False positive and false negative results are possible. Confirmatory testing required for definitive results. Current Interpretive Data was last reviewed 2022. Phencyclidine, ur Not Detected CutOff 25 ng/mL [facility] Comment: Interpretive Data - Phencyclidine: Samples containing greater than 25 ng/mL phencyclidine or other cross-reacting compounds are reported as positive. False positive and false negative results are possible. Confirmatory testing required for definitive results. Current Interpretive Data was last reviewed 2022. Urine Creatinine 114 mg/dL JÚNIOR [place] Comment: Interpretive Data Urine Creatinine: < 10 mg/dL is extremely dilute = or > 10 but < 20 mg/dL is dilute = or > 20 mg/dL is normal Current Interpretive Data was last revised on 2017. Urine 09/30/2024 9:54 AM CDT 09/30/2024 9:57 AM CDT Narrative JÚNIOR - 09/30/2024 10:32 AM CDT Drug of Abuse screening is performed by immunoassay for medical purposes only. This is not to be used for Pain Management purposes. Bettina Rubin DO LAB URINE ORDERABLES Final Resu lt JÚNIOR [address] [facility] [place] [address] * COVID-19 Coronavirus RNA Nasopharyngeal (09/30/2024 2:34 AM CDT) COVID-19 RNA Negative Negative Nasopharyngeal 09/30/2024 2: 34 AM CDT 09/30/2024 2:43 AM CDT Narrative JÚNIOR - 09/30/2024 3:16 AM CDT Is the patient experiencing any symptoms consistent with COVID (eg. Fever, cough, shortness of breath)?->No What is the reason for testing?->Screening prior to Behavioral health admission Interpretive data Testing performed by [facility]. This test is performed using the Indigeo Virtus Xpert Xpress CoV-2 plus assay. This is a real-time RT-PCR test intended for the qualitative detection of nucleic acid from the SARS-CoV-2. This assay has been cleared by the [place] Food and Drug administration. The performance characteristics have been verified by the [facility]. Results must be considered in the clinical context, and a negative result does not rule out infection. Interpretive data last revised 2023. Interpretive data Testing performed by [facility]. This test is performed using the Indigeo Virtus Xpert Xpress CoV-2 plus assay. This is a real-time RT-PCR test intended for the qualitative detection of nucleic acid from the SARS-CoV-2. This assay has been cleared by the [place] Food and Drug administration. The performance characteristics have been verified by the [facility]. Results must be considered in the clinical context, and a negative result does not rule out infection. Interpretive data last revised 2023. Bettina Rubin DO LAB MICROBIOLOGY - GENERAL ORDE RABLES Final Result Performing Organization Address [facility]/ZIP Co de Phone Number JÚNIOR [address] [facility] [place] [address] * eGFR (09/30/2024 2:34 AM CDT) Pathologist [facility] [place] eGFR >90 >=60 mL/min/1. 73 m2 Comment: Interpretive Data Reference Interval Normal >/= 90 mL/min/1.73m2 Mildly decreased* 60 - 89 mL/min/1.73m2 Mildly to moderately decreased 45 - 59 mL/min/1.73m2 Moderately to severely decreased 30 - 44 mL/min/1.73m2 Severely decreased 15 - 29 mL/min/1.73m2 Kidney Failure < 15 mL/min/1.73m2 *Relative to young adult level Estimated glomerular filtration rate is determined by the 2020 CKD-EPI equation recommended by the National Kidney Foundation (A Unifying Approach to GFR Estimation: Recommendations of the NKF-ASK Task Force on Reassessing the Inclusion of Race in Diagnosing Kidney Disease, JASN 2020). The CKD-EPI equation should not be used for patients with unstable renal function and has not been validated in children and those over 70. Current interpretive data was last reviewed 2021. Blood 09/30/2024 2:34 AM CDT 09/30/2024 2:42 AM CDT Bettina Rubin DO LAB BLOOD ORDERABLES Final Resu lt Performing Organization Address City/[facility]/ZIP Co de Phone Number JÚNIOR [address] [facility] [place] [address] * (ABNORMAL) Differential, auto (09/30/2024 2:34 AM CDT) Pathologist [facility] [place] Neutrophil abs 2.01 1.50 - 6.50 K/cumm Imm gran abs 0.01 0.00 - 0.10 K/cumm [facility] Lymphocyte abs 3.31(H) 0.80 - 3.30 K/cumm [facility] Monocyte abs 0.33 0.20 - 0.80 K/cumm [facility] Eosinophil abs 0.35 0.00 - 0.50 K/cumm [facility] Basophil abs 0.06 0.00 - 0.10 K/cumm [facility] Neutrophil pct 33.1 % [facility] Comment: Interpretive Data Percent cell count reference ranges are not reported, since discordance with absolute values may lead to misinterpretation of CBC data. Current Interpretive Data was last revised on 2017. Imm gran pct 0.2 % [facility] Comment: Interpretive Data Percent cell count reference ranges are not reported, since discordance with absolute values may lead to misinterpretation of CBC data. Current Interpretive Data was last revised on 2017. Lymphocyte pct 54.5 % [facility] Comment: Interpretive Data Percent cell count reference ranges are not reported, since discordance with absolute values may lead to misinterpretation of CBC data. Current Interpretive Data was last revised on 2017. Monocyte pct 5.4 % [facility] Comment: Interpretive Data Percent cell count reference ranges are not reported, since discordance with absolute values may lead to misinterpretation of CBC data. Current Interpretive Data was last revised on 2017. Eosinophil pct 5.8 % [facility] Comment: Interpretive Data Percent cell count reference ranges are not reported, since discordance with absolute values may lead to misinterpretation of CBC data. Current Interpretive Data was last revised on 2017. Basophil pct 1.0 % [facility] Comment: Interpretive Data Percent cell count reference ranges are not reported, since discordance with absolute values may lead to misinterpretation of CBC data. Current Interpretive Data was last revised on 2017. Blood 09/30/2024 2:34 AM CDT 09/30/2024 2:43 AM CDT Bettina Rubin LAB BLOOD ORDERABLES Final Resu lt Performing Organization Address City/[facility]/ZIP Co de Phone Number [address] [place] [address] * Thyroid Function Barton (09/30/2024 2:34 AM CDT) [facility] TSH 0.68 0.30 - 4.20 mcIUnit/mL Blood 09/30/2024 2:34 AM CDT 09/30/2024 2:42 AM CDT Bettina Rubin [facility] BLOOD ORDERABLES Final Resu lt Performing Organization Address [facility] de Phone Number [facility]TATI [address] [place] [address] * (ABNORMAL) CBC with auto differential (09/30/2024 2:34 AM CDT) [facility] WBC 6.07 3.80 - 9.90 K/cumm Hgb 11.9(L) 13.0 - 17.5 g/dL [facility] Hct 37.2(L) 38.9 - 50.3 % [facility] Plt 268 150 - 400 K/cumm [facility] MPV 9.2 9.1 - 12.3 fL [facility] RBC 4.56 4.30 - 5.80 M/cumm [facility] MCV 81.6 81.3 - 96.4 fL [facility] MCH 26.1(L) 27.1 - 33.3 pg [facility] MCHC 32.0(L) 32.3 - 35.7 g/dL [facility] RDW CV 16.8(H) 11.1 - 14.9 % [facility] RDW SD 49.9(H) 35.7 - 48.1 fL [facility] NRBC abs 0.00 0.00 - 0.01 K/cumm [facility] Blood Venous blood specimen / Unknown 09/30/2024 2:34 AM CDT 09/30/2024 2:43 AM CDT Bettina [facility] LAB BLOOD ORDERABLES Final Resu lt Performing Organization Address [facility] de Phone Number JÚNIOR [address] [address] * (ABNORMAL) Ethanol (09/30/2024 2:34 AM CDT) Ethanol 144(H) <=10 mg/dL Comment: Interpretive Data Legal limit of intoxication > or = 80 mg/dL Levels > or = 400 mg/dL are potentially TOXIC. Current interpretive data was last revised on 2018. Blood 09/30/2024 2:34 AM CDT 09/30/2024 2:42 AM CDT [facility] LAB BLOOD ORDERABLES Final Resu Performing Organization Address [facility] de Phone Number JÚNIOR [address] [address] * (ABNORMAL) Comprehensive metabolic panel (09/30/2024 2:34 AM CDT) Sodium 138 135 - 145 mmol/L Potassium, pl 3.6 3.3 - 4.9 mmol/L [facility] Chloride 105 97 - 110 mmol/L [facility] CO2 19(L) 22 - 32 mmol/L [facility] Anion gap 14 2 - 15 mmol/L [facility] BUN 9 6 - 25 mg/dL [facility] Creatinine 0.90 0.80 - 1.30 mg/dL [facility] Glucose 262(H) 70 - 199 mg/dL [facility] Comment: Interpretive Data Fasting glucose >/= 126 mg/dl is diagnostic for diabetes. Fasting is defined as no caloric intake for at least 8 hours. Fasting glucose between 100 mg/dl to 125 mg/dl is diagnostic of prediabetes. In a patient with classic symptoms of hyperglycemia or hyperglycemic crisis, a random glucose >/= 200 mg/dl is diagnostic for diabetes. In the absence of unequivocal hyperglycemia, results should be confirmed by repeat testing. The classification and Diagnosis of Diabetes Diabetes Care 202; 46: S19-S40. Current interpretive data was last revised 2022. Calcium 8.7 8.5 - 10.3 mg/dL [facility] Bilirubin, total 0.2 0.1 - 1.2 mg/dL [facility] Protein, pl 7.1 6.5 - 8.5 g/dL [facility] Albumin 3.8 3.5 - 5.0 g/dL [facility] Alk phos 63 40 - 130 Units/L [facility] ALT 18 7 - 55 Units/L [facility] AST 30 10 - 50 Units/L [facility] Blood 09/30/2024 2:34 AM CDT 09/30/2024 2:42 AM CDT Bettina Rubin DO LAB BLOOD ORDERABLES Final Resu lt [facility] [address] [facility] Department [place] [address] * (ABNORMAL) Lipid panel (09/14/2024 2:50 AM CDT) Cholesterol 120 30 - 199 mg/dL Comment: Interpretive Data Ages < or = 19 years Acceptable: <170 mg/dL Borderline high: 170-199 mg/dL High: >or= 200 mg/dL Ages > or = 20 years Desirable: <200 mg/dL Borderline high: 200-239 mg/dL High: >or= 240 mg/dL Literature References: 1. Expert Panel on Integrated Guidelines for Cardiovascular Health and Risk Reduction in Children and Adolescents. Pediatrics 2011;128:S213 2. NCEP Expert Panel. Circulation 2004;110:227 Current Interpretive Data was last revised on 2018. Triglycerides 597(H) <=149 mg/dL [facility] Comment: Interpretive Data Ages < or = 9 years Acceptable: <75 mg/dL Borderline high: 75-99 mg/dL High: >or= 100 mg/dL Ages 10 to 20 years Acceptable: <90 mg/dL Borderline high: 90-129 mg/dL High: >or= 130 mg/dL Ages > or = 20 years Desirable: <150 mg/dL Borderline high: 150-199 mg/dL High: 200-499 mg/dL Very high: >or= 499 mg/dL Literature References: 1. Expert Panel on Integrated Guidelines for Cardiovascular Health and Risk Reduction in Children and Adolescents. Pediatrics 2011;128:S213 2. NCEP Expert Panel. Circulation 2004;110:227 Current Interpretive Data was last revised on 2018. HDL 28(L) >=40 mg/dL JÚNIOR [facility] Comment: Interpretive Data Ages < or = 19 years Acceptable: >45 mg/dL Borderline low: 40-45 mg/dL Low: <40 mg/dL Ages > or = 20 years Desirable: >or= 60 mg/dL Low: <40 mg/dL Literature References: 1. Expert Panel on Integrated Guidelines for Cardiovascular Health and Risk Reduction in Children and Adolescents. Pediatrics 2011;128:S213 2. NCEP Expert Panel. Circulation 2004;110:227 Current Interpretive Data was last revised on 2018. LDL, calculated See Comment <=129 mg/dL JÚNIOR [place] Comment: Unable to calculate due to elevated Triglycerides. Interpretive Data Ages < or = 19 years Acceptable: <110 mg/dL Borderline high: 110-129 mg/dL High: >or= 130 mg/dL Ages > or = 20 years Optimal: <100 mg/dL Near optimal: 100-129 mg/dL Borderline high: 130-159 mg/dL High: >160 mg/dL Calculated using the Shay LDL-C estimating equation. This equation was implemented on 2024. Prior to this date LDL-C was estimated using the Friedewald equation. Literature References: 1. Expert Panel on Integrated Guidelines for Cardiovascular Health and Risk Reduction in Children and Adolescents. Pediatrics 2011;128:S213 2. NCEP Expert Panel. Circulation 2004;110:227 3. Shay Dobbs et al. LYRIC Cardiol. 2020 September 25;5(5):540-548. doi: 10.1001/jamacardio.2020.0013 Current Interpretive Data was last revised on 2024. Non-HDL Cholesterol 92 mg/dL JÚNIOR [facility] Comment: Interpretive Data Ages < or = 19 years Acceptable: <120 mg/dL Borderline high: 120-144 mg/dL High: >145 mg/dL Ages > or = 20 years When triglycerides are >200 mg/dL, Non-HDL cholesterol is a secondary target of therapy with treatment goals that are 30 mg/dL greater than the LDL cholesterol target. Literature References: 1. Expert Panel on Integrated Guidelines for Cardiovascular Health and Risk Reduction in Children and Adolescents. Pediatrics 2011;128:S213 2. NCEP Expert Panel. Circulation 2004;110:227 Current Interpretive Data was last revised on 2018. Chol/HDL ratio 4 JÚNIOR Blood 09/14/2024 2:50 AM CDT 09/14/2024 3:06 AM CDT uSni Lynch LAB BLOOD ORDERABLES Final Result Performing Organization Address [facility] de Phone Number [facility] [address] [place] [address] * (ABNORMAL) Hemoglobin A1c (09/13/2024 2:57 PM CDT) Hgb A1C 8.4(H) 4.0 - 5.6 % Estimated Average Glucose 194 mg/dL JÚNIOR Comment: The ADA recommends reporting an estimated Average Glucose (eAG) with all Hemoglobin A1c results using the equation derived from a study of 507 normal and diabetic adults. Minority populations were underrepresented and children were not included. (Diabetes Care 31:7374-2691, 2008). The eAG is not equivalent to a fasting glucose. Blood 09/13/2024 2:57 PM CDT 09/13/2024 2:59 PM CDT Suni Lynch [employer]ATHER [employer]ER LAB BLOOD ORDERABLES Final Result Performing Organization Address [facility] de Phone Number [place] [address] [place] [address] from Last 3 Months or Most Recently Relevant to Health Maintenance Insurance Advance Directives For more information, please contact: [phone] * Full Code (Latest Code Status on File) Date Activated Date Inactivated Comments 12/13/2024 10:55 PM 12/14/2024 4:32 PM * Full Code Date Activated Date Inactivated Comments 10/14/2024 9:09 PM 10/15/2024 5:40 PM * Full Code Date Activated Date Inactivated Comments 10/01/2024 6:05 PM 10/03/2024 8:05 PM * Full Code Date Activated Date Inactivated Comments 09/13/2024 3:06 PM 09/18/2024 12:01 PM * Full Code Date Activated Date Inactivated Comments 01/10/2024 2:33 AM 01/10/2024 4:24 PM Care Teams Police Worker Relationship Specialty Start Date End Date No, Physician PCP - General 02/01/23
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
--- OUTSIDE RECORDS SUMMARY | 2024-12-28 18:26 | XMS_ITS | Encounter Summary ---
Author Organization [facility] Care Team Providers Care Disposition Clerk Name Role Phone No, Physician Primary Care Provider Ghanshyam Alfaro MD Primary Care Provider [phone] Lorraine Rogel MD Primary Care Provider Lorraine Rogel MD Primary Care Provider [phone] Maria Martinez RN Unavailable [phone] Unknown, Notinfile Primary Care Provider Unavail able No, Physician Primary Care Provider Encounter Details Date Type Department Care Team (Latest Contact Info) Description 10/22/2015 Orders Only [facility] ProviderAnthony MD [address] [place] [id number] Social History Tobacco Use Types Packs/Day Years Used Date Smoking Tobacco: Never Assessed Sex and Gender Information Value Date Recorded Sex Assigned at Not on file Legal 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 us Historical Provider [facility] JING WALSH Final Result documented in this encounter Visit Diagnoses Not on filedocumented in this encounter Additional Health Concerns Infection Onset Date Last Indicated Resolved Time COVID: Suspected 01/07/2020 01/07/2020 01/07/2020 4:43 PM CDT Respiratory Infection (RAJESH), contact + droplet Comment:Patient classified as Low Risk for COVID-19 and has one negative COVID-19 test. Patient meets criteria for COVID-19 isolation discontinuation 01/08/2020 Sukhi Nielsen Automatically added due to negative COVID-19 result. 01/07/2020 01/07/2020 01/08/2020 2:54 AM C DT COVID: Suspected 03/07/2020 03/07/2020 03/07/2020 4:40 AM CDT Respiratory Infection (RAJESH), contact + droplet Comment:Automatically added due to negative COVID-19 result. 03/07/2020 03/07/2020 03/21/2020 3:0 6 AM CDT COVID: Suspected 01/05/2021 01/05/2021 01/05/2021 12:53 PM CDT COVID19 01/05/2021 01/05/2021 01/15/2021 2:15 PM CDT COVID: Recovered 01/15/2021 01/15/2021 05/15/2021 3:05 AM SILVER WRAPPER COVID: Suspected 08/21/2021 08/21/2021 08/21/2021 9:53 AM CDT COVID: Suspected 06/13/2022 06/13/2022 06/13/2022 4:30 AM SILVER WRAPPER COVID19 06/13/2022 06/13/2022 06/23/2022 3:05 AM SILVER WRAPPER COVID: Recovered Comment:Added based on recent COVID infection. 06/23/2022 06/27/2022 09/21/2022 3:05 AM C DT COVID: Suspected 07/31/2022 07/31/2022 07/31/2022 3:35 AM SILVER WRAPPER COVID: Suspected 02/02/2023 02/02/2023 02/02/2023 12:10 PM CDT COVID: Suspected 02/23/2023 02/23/202302/2302/23/2023 5:36 AM CDT COVID: Suspected 06/16/2023 06/16/2023 06/16/2023 2:04 AM SILVER WRAPPER COVID: Suspected 07/28/2023 07/28/2023 07/28/2023 8:03 AM SILVER WRAPPER COVID: Suspected 08/18/2023 08/18/2023 08/18/2023 7:46 PM CDT COVID: Suspected 09/17/2023 09/17/2023 09/17/2023 8:40 AM CDT COVID: Suspected 01/23/2024 01/23/2024 01/23/2024 4:28 AM CDT COVID: Suspected 02/02/2024 02/02/2024 02/02/2024 2:34 AM CDT COVID: Suspected 04/12/2024 04/12/2024 04/12/2024 8:26 PM SILVER WRAPPER COVID: Suspected 08/21/2024 08/21/2024 08/21/2024 6:07 AM CDT COVID: Suspected 09/07/2024 09/07/2024 09/07/2024 6:12 AM CDT COVID: Suspected 10/14/2024 10/14/2024 10/14/2024 10:59 AM CDT COVID: Suspected 11/08/2024 11/08/2024 11/08/2024 4:01 AM CDT documented as of this encounter Care Teams Disposition Clerk Relationship Specialty Start Date End Date No, Physician PCP - General 09/03/16 07/17/18 Ghanshyam Alfaro MD PCP - General 07/18/18 06/20/20 Lorraine Rogel MD [address] [address] PCP - General 06/21/20 06/21/20 Lorraine Rogel MD [address] [place] [address] PCP - General 06/22/20 11/20/21 Unknown, Notinfile PCP - General 11/21/21 01/31/23 No, Physician PCP - General 02/01/23 Maria Martinez, RN [address] [facility] [address] [place] [address] SHOP Outpatient Preventive Medicine Officer 01/18/21 01/20/21 documented as of this encounter
--- OUTSIDE RECORDS SUMMARY | 2024-12-28 18:26 | XMS_ITS | Referral Summary ---
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 Name Role Phone No, Physician Primary Care Provider [phone] Encounters Date Type Department Care Team Description 12/15/2024 1:35 AM CDT - 12/15/2024 11:26 AM CDT Emergency [address] [address] Yan Palma Jr., MD Harper, Theodore Roosevelt, MD Depression with suicidal ideation (Primary Dx); Acute alcoholic intoxication without complication; Cocaine abuse (HCC); Alcohol abuse Discharge Disposition: Discharge to home or self care 12/13/2024 10:50 PM CDT - 12/14/2024 12:07 PM CDT Hospital Encounter [facility] [address] [place] [id number] Chris Fink MD Charepoo, Mina, MD Substance induced mood disorder (HCC) (Primary Dx); Alcohol use disorder, moderate (HCC) [F10.20]; Antisocial personality disorder (HCC) [F60.2]; Severe cocaine use disorder (HCC) [F14.20]; Type 2 diabetes mellitus without complication, without long-term current use of insulin (HCC) [E11.9] Discharge Disposition: Discharge to home or self care 12/13/2024 12:50 AM CDT - 12/13/2024 9:37 PM CDT [facility] Emergency Department [address] [place] [address] Octavio Talley MD Wala, Jovanny Milton MD Suicidal ideation (Primary Dx); Homicidal ideation Discharge Disposition: Discharge to psych hospital or psych unit 12/08/2024 2:05 AM CDT - 12/09/2024 3:02 AM CDT [address] [address] Suicidal ideation (Primary Dx); Substance abuse (HCC) Discharge Disposition: Discharge to home or self care 11/12/2024 11:08 PM CDT - 11/13/2024 5:25 AM T [address] [address] Ernie Suarez DO Suicidal ideation (Primary Dx); Homicidal ideation; Chest pain, unspecified type; Polysubstance abuse (HCC) Discharge Disposition: Discharge to home or self care 11/08/2024 1:54 AM CDT - 11/08/2024 3:14 PM CDT [address] [address] Homicidal ideation (Primary Dx); Malingering Discharge Disposition: Discharge to home or self care 10/14/2024 8:12 PM CDT - 10/15/2024 1:35 PM T [facility] [address] [place] [address] Austin Neumann MD de Leon, Victoria Carmen, MD Severe cocaine use disorder (HCC) (Primary Dx) Discharge Disposition: Discharge to home or self care 10/14/2024 2:53 AM CDT - 10/14/2024 7:13 PM T [facility] Emergency Department [address] [place] [address] Yan Palma Jr., MD Holland, Kristy Lynn, MD Chest pain, unspecified type (Primary Dx); Elevated troponin; Depression with suicidal ideation; Situational stress; History of schizophrenia; History of bipolar disorder; Cocaine abuse (HCC); Alcohol abuse Discharge Disposition: Discharge to a short term hospital for IP 10/01/2024 5:13 PM CDT - 10/03/2024 2:34 PM CDT Hospital Encounter [facility] [address] [place] [address] Neli Jameson MD Haddad, Rita, MD L'Ecuyer, [...] 2:34 AM CDT - 10/01/2024 3:57 PM CDT Emergency [address] [place] [address] Suicidal ideation (Primary Dx); Homicidal ideation; Hallucinations; Alcoholic intoxication without complication; Hyperglycemia Discharge Disposition: Discharge to psych hospital or psych unit from Last 3 Months Allergies Active Allergy Reactions Criticality Noted Date [...] reason for killing himself is to avoid shelter time. He has told staff that he [...] PM CDT): Asymptomatic Patient being admitted to covid floor due [...] AM CDT): Asymptomatic Patient being admitted to covid floor due [...] 1:08 PM CDT): Patient being admitted to covid [...] be problematic - will continue psycho-education and [place] - appreciate SW assistance with resources Substance induced mood disorder [...] time. Might consider an SSRI - appreciate SW and medical team recs Assessment & Plan (01/10/2024 11:02 AM CDT): Active on admit, UDS+cocaine, mj Encouraged abstinence Rehab options per Assessment & Plan (12/17/2022 10:07 AM CDT): Fritz is well known to me for over 10 years from when I worked at [employer] in [place]. He has a long h/o cocaine use. 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 Assessment & Plan (01/14/2021 1:07 PM CDT): [...] sx and SI/HI and 2 past SA (djiboutian roulette) all while under the influence of [...] withdrawal is anticipated - use psycho-education and [place] for YVONNE tx Assessment & Plan (08/17/2019 [...] continue to monitor, but does not require [facility] protocol. Plan: CD resources Resolved Problems Problem [...] units - Reports storing his insulin at [facility]. -added lispro 3 unit with meals [...] PO BID -lantus 10u qhs while inpatient Immunizations Immunization Administration Dates Next Due Influenza, Trivalent, IM (MDV) 03/11/2022,2019 Pneumococcal Polysaccharide PPV23 01/20/2020 Tdap 01/16/2023,09/19/2020 Social History Tobacco Use Types Packs/Day Years Used Date Smoking Tobacco: Every Day Cigarettes Smokeless Tobacco: Never Tobacco Cessation:Ready to Q uit: Not Asked; Counseling Given: Not Answered Comments:sometimes Alcohol Use Standard Drinks/Week Comments Yes 21 (1 standard drink = 0.6 oz pu re alcohol) [facility] Utilities Answer Date Recorded In the past 12 months has e [employer], gas, oil, or water [employer] threatened to shut off services in your [...] declined 12/14/2024 How often do you attend mu-ism or samaritan serv ices? Patient declined 12/14/2024 Do you belong to any clubs o r organizations such as mu-ism groups, unions, fraternal or athletic groups, or [...] staff should administer the PHQ-9) 3 [facility] Occupational Stress Questionnaire Answer Date Recorded [...] place to sleep or slept in a senior living (including now)? Patient refused 12/17/2022 Housing Stability [...] any time in the past 12 m [facility], were you homeless or living in a senior living (including now)? Patient declined 12/14/2024 Personal Safety [...] on file Legal Sex Male 3:32 AM [employer] Gender Identity Not on file Sexual Orientation Not on file Last Filed Vital Signs Vital Sign Reading [...] Mass Index 25.09 12/15/2024 1:40 AM CDT Functional Status * Are you deaf or do you have serious difficulty hearing? Answer Date of Assessment Author No 10/15/2024 10:00 AM CDT Yousuf Orona LCSW * Are you blind or do you have serious difficulty seeing, even when wearing glasses? Answer Date of Assessment Author No 10/15/2024 10:00 AM CDT Yousuf Orona LCSW * Do you have serious difficulty walking or climbing stairs? Answer Date of Assessment Author No 10/15/2024 10:00 AM CDT Yousuf Orona LCSW * Do you have serious difficulty dressing or bathing? Answer Date of Assessment Author No 10/15/2024 10:00 AM CDT Yousuf Orona LCSW * Because of a physical, mental, or emotional condition, do you have serious difficulty doing errandsalone such as visiting the doctor? Answer Date of Assessment Author No 10/15/2024 10:00 AM CDT Yousuf Orona LCSW Mental Status * Because of a physical, mental, or emotional condition, do you have serious difficulty concentrating, remembering, or making decisions? (5 years old or older) Answer Entry Date Author No 10/15/2024 10:00 AM CDT Yousuf Orona LCSW Plan of Treatment Not on file Procedures Procedure Name Priority Date/Time Associated Diagnosis [...] Coronavirus RNA Nasopharyngeal (12/15/2024 2:21 AM CDT) COVID-19 RNA Negative Negative Nasopharyngeal 12/15/2024 2: 21 AM CDT 12/15/2024 2:27 AM CDT Bhupinder CALLEJAS - 12/15/2024 2:59 AM CDT Is the patient experiencing any symptoms consistent with COVID (eg. Fever, cough, shortness of breath)?->No What is the reason for testing?->Screening prior to Behavioral health admission Interpretive data Testing performed by [facility]. This test is performed using the Kabooza Xpert Xpress CoV-2 plus assay. This is a real-time RT-PCR test intended for the qualitative detection of nucleic acid from the SARS-CoV-2. This assay has been cleared by the [place] Food and Drug administration. The performance characteristics have been verified by the [facility]. Results must be considered in the clinical context, and a negative result does not rule out infection. Interpretive data last revised 2023. Interpretive data Testing performed by [facility]. This test is performed using the Kabooza Xpert Xpress CoV-2 plus assay. This is a real-time RT-PCR test intended for the qualitative detection of nucleic acid from the SARS-CoV-2. This assay has been cleared by the [facility] Food and Drug administration. The performance characteristics have been verified by the [facility]. Results must be considered in the clinical context, and a negative result does not rule out infection. Interpretive data last revised 2023. us Yan Palma Jr., MD LAB MICROBIOLOGY - [facility] ORDERABLES Final Result [facility] [address] [facility] Department [place] [address] * eGFR (12/15/2024 2:21 AM CDT) eGFR [...] MD LAB BLOOD ORDERABLES Fi nal Result [facility] [address] [facility] Department [place] [address] * Differential, auto (12/15/2024 2:21 AM CDT) Pathologist [facility] Neutrophil abs 1.65 1.50 - 6.50 K/cumm Imm gran abs 0.01 0.00 - 0.10 K/cumm [facility] Lymphocyte abs 2.16 0.80 - 3.30 K/cumm [facility] Monocyte abs 0.35 0.20 - 0.80 K/cumm [facility] Eosinophil abs 0.08 0.00 - 0.50 K/cumm [facility] Basophil abs 0.04 0.00 - 0.10 K/cumm [facility] Neutrophil pct 38.5 % [facility] Comment: Interpretive Data Percent cell count reference ranges are not reported, since discordance with absolute values may lead to misinterpretation of CBC data. Current Interpretive Data was last revised on 2017. Imm gran pct 0.2 % [facility] Comment: Interpretive Data Percent cell count reference ranges are not reported, since discordance with absolute values may lead to misinterpretation of CBC data. Current Interpretive Data was last revised on 2017. Lymphocyte pct 50.3 % [facility] Comment: Interpretive Data Percent cell count reference ranges are not reported, since discordance with absolute values may lead to misinterpretation of CBC data. Current Interpretive Data was last revised on 2017. Monocyte pct 8.2 % [facility] Comment: Interpretive Data Percent cell count reference ranges are not reported, since discordance with absolute values may lead to misinterpretation of CBC data. Current Interpretive Data was last revised on 2017. Eosinophil pct 1.9 % [facility] Comment: Interpretive Data Percent cell count reference ranges are not reported, since discordance with absolute values may lead to misinterpretation of CBC data. Current Interpretive Data was last revised on 2017. Basophil pct 0.9 % [facility] Comment: Interpretive Data Percent cell count reference ranges are not reported, since discordance with absolute values may lead to misinterpretation of CBC data. Current Interpretive Data was last revised on 2017. Blood 12/15/2024 2:21 AM CDT 12/15/2024 2:27 AM CDT Yan Palma Jr., MD LAB BLOOD ORDERABLES Fi nal Result Performing Organization Address [facility] de Phone Number [address] [place] [address] * Thyroid Function [place] (12/15/2024 2:21 AM CDT) TSH 0.85 0.30 - 4.20 mcIUnit/mL Blood 12/15/2024 2:21 AM CDT 12/15/2024 2:27 AM CDT Yan Palma Jr., MD LAB BLOOD ORDERABLES Fi nal Result Performing Organization Address [facility] de Phone Number [address] [place] [address] * (ABNORMAL) Urinalysis reflex to microscopic and culture Urine (12/15/2024 2:21 AM CDT) Color, ur Yellow Yellow Clarity, ur Clear Clear [facility] Specific gravity, ur 1.013 1.003 - 1.030 [facility] pH, urine 5.5 [facility] Comment: Interpretive Data U rine pH is affected by diet, medications, systemic acid-base disturbances, and renal tubular function. pH may affect urinary stone formation. For example, urine pH below 6.0 may help reduce the tendency for calcium phosphate stones and pH greater than 6.0 may reduce the tendency for uric acid stone formation. Source: [facility] Current Interpretive Data was last revised on 2017 Protein, ur ql Negative Negative [facility] Glucose, ur ql 1+(A) Negative [facility] Ketones, ur Negative Negative [facility] Bilirubin, ur Negative Negative [facility] Blood, ur Negative Negative [facility] Urobilinogen, ur <2.0 <2.0 mg/dL [facility] Nitrite, ur Negative Negative [facility] Leukocyte esterase, ur Negative Negative [facility] UA reflex comment Reflex conditions for microscopic UA and culture not met. [facility] Urine 12/15/2024 2:21 AM CDT 12/15/2024 2:27 AM CDT Yan Palma Jr., MD LAB MICROBIOLOGY - [facility] ORDERABLES Final Result [facility] [address] [facility] Department [place] [address] * (ABNORMAL) CBC with auto differential (12/15/2024 2:21 AM CDT) WBC 4.29 3.80 - 9.90 K/cumm Hgb 11.6(L) 13.0 - 17.5 g/dL [facility] Hct 35.3(L) 38.9 - 50.3 % [facility] Plt 196 150 - 400 K/cumm [facility] MPV 9.3 9.1 - 12.3 fL [facility] RBC 4.33 4.30 - 5.80 M/cumm [facility] MCV 81.5 81.3 - 96.4 fL [facility] MCH 26.8(L) 27.1 - 33.3 pg [facility] MCHC 32.9 32.3 - 35.7 g/dL [facility] RDW CV 15.1(H) 11.1 - 14.9 % [facility] RDW SD 44.9 35.7 - 48.1 fL [facility] NRBC abs 0.00 0.00 - 0.01 K/cumm [facility] Venous blood specimen / Unknown 12/15/2024 2:21 AM CDT 12/15/2024 2:27 AM CDT Yan Palma Jr., MD LAB BLOOD ORDERABLES Fi nal Result [facility] [address] [facility] Department [place] [address] * (ABNORMAL) Drugs of Abuse Screen, Urine without Confirmation (12/15/2024 2:21 AM CDT) Pathologist [facility] Amphetamine, ur Not Detected CutOff 500ng/mL Comment: Interpretive Data - Amphetamines: Samples containing greater than 500 ng/mL d-methamphetamine or other cross-reacting amphetamine compounds are reported as positive. Amphetamine immunoassays are subject to significant false positive rates due to cross-reactivity of non-amphetamine drugs. Confirmatory testing required for definitive results. Current Interpretive Data was last reviewed 2022. Barbiturates, ur Not Detected CutOff 200ng/mL [facility] Comment: Interpretive Data - Barbiturates: Samples containing greater than 200 ng/mL secobarbital or other cross-reacting barbiturate compounds are reported as positive. False positive and false negative results are possible. Confirmatory testing required for definitive results. Current Interpretive Data was last reviewed 2022. Benzodiazepines, ur Not Detected CutOff 100ng/mL [facility] Comment: Interpretive Data - Benzodiazepines: Samples containing greater than 100 ng/mL nordiazepam or other cross-reacting compounds are reported as positive. False positive and false negative results are possible. Confirmatory testing required for definitive results. Current Interpretive Data was last reviewed 2022. Cannabinoids, ur Not Detected CutOff 50 ng/mL [facility] Comment: Interpretive Data - Cannabinoids: Samples containing greater than 50 ng/mL delta-9 THC -COOH or other cross- reacting compounds are reported as positive. False positive and false negative results are possible. Confirmatory testing required for definitive results. Current Interpretive Data was last reviewed 2022. Cocaine, ur Screen Positive, presumptive (A) CutOff 150ng/mL [facility] Comment: Interpretive Data - Cocaine: Samples containing greater than 150 ng/mL benzoylecgonine or other cross- reacting compounds are reported as positive. False positive and false negative results are possible. Confirmatory testing required for definitive results. Current Interpretive Data was last reviewed 2022. Fentanyl, Ur Not Detected CutOff 5 ng/mL [facility] Comment: Interpretive Data - Fentanyl: Samples containing [...] AM CDT 12/15/2024 2:27 AM CDT Narrative [facility] - 12/15/2024 2:52 AM CDT Drug of Abuse screening is performed by immunoassay for medical purposes only. This is not to be used for Pain Management purposes. Yan Palma Jr., MD LAB URINE ORDERABLES Fi nal Result Performing Organization Address [facility] de Phone Number [address] [address] * (ABNORMAL) Ethanol (12/15/2024 2:21 AM CDT) Ethanol 130(H) <=10 mg/dL Comment: Interpretive Data Legal limit of intoxication > or = 80 mg/dL Levels > or = 400 mg/dL are potentially TOXIC. Current interpretive data was last revised on 2018. Blood 12/15/2024 2:21 AM CDT 12/15/2024 2:27 AM CDT Yan Palma Jr., MD LAB BLOOD ORDERABLES nal Result Performing Organization Address [facility] de Phone Number [address] [address] * (ABNORMAL) Comprehensive metabolic panel (12/15/2024 2:21 AM CDT) Sodium 138 135 - 145 mmol/L Potassium, pl 3.8 3.3 - 4.9 mmol/L [facility] Chloride 104 97 - 110 mmol/L [facility] CO2 21(L) 22 - 32 mmol/L [facility] Anion gap 13 2 - 15 mmol/L [facility] BUN 11 6 - 25 mg/dL [facility] Creatinine 1.11 0.80 - 1.30 mg/dL [facility] Glucose 389(H) 70 - 199 mg/dL [facility] Comment: Delta - Results Reviewed Interpretive Data [...] classification and Diagnosis of Diabetes Diabetes Care 2021; 46: S19-S40. Current interpretive data was last revised 2022. Calcium 8.6 8.5 - 10.3 mg/dL [facility] Bilirubin, total 0.4 0.1 - 1.2 mg/dL [facility] Protein, pl 6.9 6.5 - 8.5 g/dL [facility] Albumin 4.0 3.5 - 5.0 g/dL [facility] Alk phos 61 40 - 130 Units/L [facility] ALT 11 7 - 55 Units/L [facility] AST 23 10 - 50 Units/L [facility] Blood 12/15/2024 2:21 AM CDT 12/15/2024 2:27 AM CDT Yan Palma Jr., MD LAB BLOOD ORDERABLES Fi nal Result [facility] [address] [facility] Department [place] [address] * COVID-19 Coronavirus RNA Nasopharyngeal (12/13/2024 11:39 AM CDT) [facility] COVID-19 RNA Negative Negative Comment:Testing performed by : [facility], [address] [place] [address]., [address] Nasopharyngeal 12/13/2024 11 :39 AM CDT 12/13/2024 11:45 AM CDT Narrative [facility] - 12/13/2024 12:27 PM CDT Is the patient experiencing any symptoms consistent with COVID (eg. Fever, cough, shortness of breath)?->No What is the reason for testing?->Screening prior to Behavioral health admission Interpretive data Testing performed by [facility]. This test is performed using the Kabooza Xpert Xpress CoV-2 plus assay. This is a real-time RT-PCR test intended for the qualitative detection of nucleic acid from the SARS-CoV-2. This assay has been cleared by the [place] Food and Drug administration. The performance characteristics have been verified by the [facility]. Results must be considered in the clinical context, and a negative result does not rule out infection. Interpretive data last revised 2023. Nohemi GREEN LAB MICROBIOLOGY - GENERAL ORDERABLES Final Result [facility] [address] [facility] Department [place] [address] * (ABNORMAL) Urinalysis reflex to microscopic and culture Urine (12/13/2024 1:18 AM CDT) Color, ur Yellow Yellow Comment:Testing performed by : [address] [address] Clarity, ur Clear Clear [facility] Comment:Testing performed by : [address] [address] Specific gravity, ur 1.022 1.003 - 1.030 [facility] Comment:Testing performed by : [address] [address] pH, urine 6.5 [facility] Comment: Interpretive Data U rine pH is affected by diet, medications, systemic acid-base disturbances, and renal tubular function. pH may affect urinary stone formation. For example, urine pH below 6.0 may help reduce the tendency for calcium phosphate stones and pH greater than 6.0 may reduce the tendency for uric acid stone formation. Source: [facility] Current Interpretive Data was last revised on 2017 Testing performed by: [address] [address] Protein, ur ql 1+(A) Negative [facility] Comment:Testing performed by : [address] [address] Glucose, ur ql Negative Negative [facility] Comment:Testing performed by : [address] [address] Ketones, ur Negative Negative [facility] Comment:Testing performed by : [address] [place] [address] Bilirubin, ur Negative Negative [facility] [place] Comment:Testing performed by : [address], [place]., [address] Blood, ur Negative Negative [facility] [place] Comment:Testing performed by : [address], [place]., [address] Urobilinogen, ur <2.0 <2.0 mg/dL [facility] [place] Comment:Testing performed by : [address], [place]., [address] Nitrite, ur Negative Negative [facility] [place] Comment:Testing performed by : [address], [place]., [address] Leukocyte esterase, ur Negative Negative [facility] [place] Comment:Testing performed by : [address], [place]., [address] UA reflex comment Reflex to microscopic UA will be performed. [facility] [place] Comment:Testing performed by : [address], [place]., [address] Urine 12/13/2024 1:18 AM CDT 12/13/2024 1:22 AM CDT Octavio Talley MD LAB MICROBIOLOGY - GENERAL ORDERABLES Final Result [facility] [address] [facility] Department [place] [address] * (ABNORMAL) Drugs of Abuse Screen, Urine without Confirmation (12/13/2024 1:18 AM CDT) Pathologist [facility] Amphetamine, ur Not Detected CutOff 500ng/mL Comment: Interpretive Data - Amphetamines: Samples containing greater than 500 ng/mL d-methamphetamine or other cross-reacting amphetamine compounds are reported as positive. Amphetamine immunoassays are subject to significant false positive rates due to cross-reactivity of non-amphetamine drugs. Confirmatory testing required for definitive results. Current Interpretive Data was last reviewed 2022. Testing performed by: [address], [place]., [address] Barbiturates, ur Not Detected CutOff 200ng/mL [facility] Comment: Interpretive Data - Barbiturates: Samples containing greater than 200 ng/mL secobarbital or other cross-reacting barbiturate compounds are reported as positive. False positive and false negative results are possible. Confirmatory testing required for definitive results. Current Interpretive Data was last reviewed 2022. Testing performed by: [address] [address] Benzodiazepines, ur Not Detected CutOff 100ng/mL [facility] Comment: Interpretive Data - Benzodiazepines: Samples containing greater than 100 ng/mL nordiazepam or other cross-reacting compounds are reported as positive. False positive and false negative results are possible. Confirmatory testing required for definitive results. Current Interpretive Data was last reviewed 2022. Testing performed by: [address] [address] Cannabinoids, ur Not Detected CutOff 50 ng/mL [facility] Comment: Interpretive Data - Cannabinoids: Samples containing greater than 50 ng/mL delta-9 THC -COOH or other cross- reacting compounds are reported as positive. False positive and false negative results are possible. Confirmatory testing required for definitive results. Current Interpretive Data was last reviewed 2022. Testing performed by: [address] [address] Cocaine, ur Screen Positive, presumptive (A) CutOff 150ng/mL [facility] Comment: Interpretive Data - Cocaine: Samples containing greater than 150 ng/mL benzoylecgonine or other cross- reacting compounds are reported as positive. False positive and false negative results are possible. Confirmatory testing required for definitive results. Current Interpretive Data was last reviewed 2022. Testing performed by: [address] [address] Fentanyl, Ur Not Detected CutOff 5 ng/mL [facility] Comment: Interpretive Data - Fentanyl: Samples containing greater than 1 ng/mL fentanyl or other cross-reacting fentanyl compounds are reported as positive. False positive and false negative results are possible. Confirmatory testing required for definitive results. Current Interpretive Data was last reviewed 2022. Testing performed by: [address] [address] Methadone, ur Not Detected CutOff 300ng/mL [facility] Comment: Interpretive Data - Methadone: Samples containing greater than 300 ng/mL d,l-methadone or other cross-reacting compounds are reported as positive. False positive and false negative results are possible. Confirmatory testing required for definitive results. Current Interpretive Data was last reviewed 2022. Testing performed by: [address] [address] Opiates, ur Not Detected CutOff 300ng/mL [facility] Comment: Interpretive Data - Opiates: Samples containing greater than 300 ng/mL morphine or other cross-reacting compounds are reported as positive. False positive and false negative results are possible. Confirmatory testing required for definitive results. Current Interpretive Data was last reviewed 2022. Testing performed by: [address] [address] Oxycodone, ur Not Detected CutOff 100ng/mL [facility] Comment: Interpretive Data - Oxycodone: Samples containing greater than 100 ng/mL oxycodone or other cross-reacting compounds are reported as positive. False positive and false negative results are possible. Confirmatory testing required for definitive results. Current Interpretive Data was last reviewed 2022. Testing performed by: [address] [address] Phencyclidine, ur Not Detected CutOff 25 ng/mL [facility] Comment: Interpretive Data - Phencyclidine: Samples containing greater than 25 ng/mL phencyclidine or other cross-reacting compounds are reported as positive. False positive and false negative results are possible. Confirmatory testing required for definitive results. Current Interpretive Data was last reviewed 2022. Testing performed by: [address] [address] Urine Creatinine 221 mg/dL [facility] Comment: Interpretive Data Urine Creatinine: < 10 mg/dL is extremely dilute = or > 10 but < 20 mg/dL is dilute = or > 20 mg/dL is normal Current Interpretive Data was last revised on 2017. Testing performed by: [address] [address] Urine 12/13/2024 1:18 AM CDT 12/13/2024 1:22 AM CDT Narrative J[facility]NIOR - 12/13/2024 1:38 AM CDT Drug of Abuse screening is performed by immunoassay for medical purposes only. This is not to be used for Pain Management purposes. Octavio Talley MD LAB URINE ORDERABLE S Final Result Performing Organization Address [facility] de Phone Number J[facility]NI[facility] [place] [address] * (ABNORMAL) Urinalysis, microscopic only (12/13/2024 1:18 AM CDT) WBC, ur 0-5 0 - 5 /HPF Comment:Testing performed by : [address] [address] RBC, ur 0-2 0 - 2 /HPF J[facility]OR Comment:Testing performed by : [address] [address] Mucous, ur Present(A) [facility] Comment:Testing performed by : [address] [address] Culture Reflex Comment Reflex conditions for urine culture (WBC >10) not met. [facility]OR Comment:Testing performed by : [address] [address] Urine 12/13/2024 1:18 AM CDT 12/13/2024 1:22 AM CDT us Octavio Talley MD LAB URINE ORDERABLE S Final Result Performing Organization Address [facility] de Phone Number [facility] [address] [facility] [place] [address] * ECG 12 lead (12/13/2024 1:16 AM CDT) Ventricular Rate EKG/Min 99 BPM [facility] Atrial Rate 99 BPM [facility] MA-Interval (MSEC) 134 ms [facility] QRS-Interval (MSEC) 156 ms [facility] QT-Interval (MSEC) 418 ms [facility] QTc 536 ms [facility] P [place] 48 degrees [facility] R [place] -47 degrees [facility] T [place] 124 degrees [facility] Diagnosis Normal sinus rhythm Possible Left atrial enlargement Left axis deviation Left bundle branch block Abnormal ECG When compared with ECG of 08-DEC-2024 20:59 QRS axis Shifted right Confirmed by LOCO PITTMAN M.D. ([id number]) on 12/13/2024 10:04:51 PM [facility] 12/13/2024 1:16 AM CDT 12/13/2024 10:04 PM CDT us Octavio Talley MD ECG ORDERABLES Fin al Result [facility] * eGFR (12/13/2024 12:59 AM CDT) eGFR 77 >=60 mL/min/1. 73 [...] was last reviewed 2021. Testing performed by: [facility], [address] [place] [address], [place]., [address] Blood 12/13/2024 12:5 9 AM CDT 12/13/2024 1:03 AM CDT us Octavio Talley MD LAB BLOOD ORDERABLE S Final Result J[facility] [address] [facility] Department [place] [address] * Differential, auto (12/13/2024 12:59 AM CDT) Neutrophil abs 1.57 1.50 - 6.50 K/cumm Comment:Testing performed by : [address] [address] Imm gran abs 0.01 0.00 - 0.10 K/cumm JÚNIOR Comment:Testing performed by : [address] [address] Lymphocyte abs 2.79 0.80 - 3.30 K/cumm JÚNIOR Comment:Testing performed by : [address] [address] Monocyte abs 0.46 0.20 - 0.80 K/cumm JÚNIOR Comment:Testing performed by : [address] [address] Eosinophil abs 0.17 0.00 - 0.50 K/cumm JÚNIOR Comment:Testing performed by : [address] [address] Basophil abs 0.04 0.00 - 0.10 K/cumm JÚNIOR Comment:Testing performed by : [address] [address] Neutrophil pct 31.1 % J[facility]OR Comment: Interpretive Data Percent cell count reference ranges are not reported, since discordance with absolute values may lead to misinterpretation of CBC data. Current Interpretive Data was last revised on 2017. Testing performed by: [address] [address] Imm gran pct 0.2 % J[facility]NIOR Comment: Interpretive Data Percent cell count reference ranges are not reported, since discordance with absolute values may lead to misinterpretation of CBC data. Current Interpretive Data was last revised on 2017. Testing performed by: [address] [address] Lymphocyte pct 55.4 % [facility]OR Comment: Interpretive Data Percent cell count reference ranges are not reported, since discordance with absolute values may lead to misinterpretation of CBC data. Current Interpretive Data was last revised on 2017. Testing performed by: [address] [address] Monocyte pct 9.1 % [facility]OR Comment: Interpretive Data Percent cell count reference ranges are not reported, since discordance with absolute values may lead to misinterpretation of CBC data. Current Interpretive Data was last revised on 2017. Testing performed by: [address] [address] Eosinophil pct 3.4 % J[facility]NIOR Comment: Interpretive Data Percent cell count reference ranges are not reported, since discordance with absolute values may lead to misinterpretation of CBC data. Current Interpretive Data was last revised on 2017. Testing performed by: [address] [address] Basophil pct 0.8 % J[facility]OR Comment: Interpretive Data Percent cell count reference ranges are not reported, since discordance with absolute values may lead to misinterpretation of CBC data. Current Interpretive Data was last revised on 2017. Testing performed by: [address] [address] Blood 12/13/2024 12:5 9 AM CDT 12/13/2024 1:03 AM CDT us Octavio Talley MD LAB BLOOD ORDERABLE S Final Result [facility] [address] [facility] Department [place] [address] * (ABNORMAL) CBC with auto differential (12/13/2024 12:59 AM CDT) WBC 5.04 3.80 - 9.90 K/cumm Comment:Testing performed by : [address] [address] Hgb 11.6(L) 13.0 - 17.5 g/dL JÚNIOR Comment:Testing performed by : [address] [address] Hct 35.3(L) 38.9 - 50.3 % JÚNIOR Comment:Testing performed by : [address], [address] Plt 212 150 - 400 K/cumm JÚNIOR Comment:Testing performed by : [address] [address] MPV 8.9(L) 9.1 - 12.3 fL JÚNIOR Comment:Testing performed by : [address], [address] RBC 4.35 4.30 - 5.80 M/cumm JÚNIOR Comment:Testing performed by : [address], [address] MCV 81.1(L) 81.3 - 96.4 fL JÚNIOR Comment:Testing performed by : [address], [address] MCH 26.7(L) 27.1 - 33.3 pg JÚNIOR Comment:Testing performed by : [address], [address] MCHC 32.9 32.3 - 35.7 g/dL JÚNIOR Comment:Testing performed by : [address], [address] RDW CV 15.3(H) 11.1 - 14.9 % JÚNIOR Comment:Testing performed by : [address], [address] RDW SD 44.7 35.7 - 48.1 fL JÚNIOR Comment:Testing performed by : [address], [address] NRBC abs 0.00 0.00 - 0.01 K/cumm JÚNIOR Comment:Testing performed by : [address], [address] Blood 12/13/2024 12:5 9 AM CDT 12/13/2024 1:03 AM CDT us Octavio Talley MD LAB BLOOD ORDERABLE S Final Result [facility] [place] [address] * (ABNORMAL) Ethanol (12/13/2024 12:59 AM CDT) Ethanol 118(H) <=10 mg/dL Comment: Interpretive Data Legal limit of intoxication > or = 80 mg/dL Levels > or = 400 mg/dL are potentially TOXIC. Current interpretive data was last revised on 2018. Testing performed by: [address] [address] Blood 12/13/2024 12:5 9 AM CDT 12/13/2024 1:03 AM CDT us Octavio Talley MD LAB BLOOD ORDERABLE S Final Result Performing Organization Address [facility] Co de Phone Number JÚNIOR [address] [place] [address] * Acetaminophen level (12/13/2024 12:59 AM CDT) [...] after ingestion Consult toxicology or poison control ([phone]) for unknown ingestion time. Current interpretive data was last revised 2023. Testing performed by: [address] [address] Blood 12/13/2024 12:5 9 AM CDT 12/13/2024 1:03 AM CDT us Octavio Talley MD LAB BLOOD ORDERABLE S Final Result Performing Organization Address City/[facility] Co de Phone Number J[facility]OR [facility] [place] [address] * Salicylate level (12/13/2024 12:59 AM CDT) Salicylate <1.0 <=1.0 mg/dL Comment: Interpretive Data Toxic: 30 mg/dL or greater. Current interpretive data was last revised 2023. Testing performed by: [address] [address] Blood 12/13/2024 12:5 9 AM CDT 12/13/2024 1:03 AM CDT us Octavio Talley MD LAB BLOOD ORDERABLE S Final Result [facility] Department [place] [address] * (ABNORMAL) Basic metabolic panel (12/13/2024 12:59 AM CDT) Pathologist [facility] Sodium 141 135 - 145 mmol/L Comment:Testing performed by : [address] [address] Potassium, pl 3.8 3.3 - 4.9 mmol/L JÚNIOR Comment:Testing performed by : [address] [address] Chloride 105 97 - 110 mmol/L JÚNIOR Comment:Testing performed by : [address] [address] CO2 21(L) 22 - 32 mmol/L JÚNIOR Comment:Testing performed by : [address] [address] Anion gap 15 2 - 15 mmol/L JÚNIOR Comment:Testing performed by : [address] [address] BUN 12 6 - 25 mg/dL JÚNIOR Comment:Testing performed by : [address] [address] Creatinine 1.11 0.80 - 1.30 mg/dL J[facility]NIOR Comment:Testing performed by : [address] [address] Glucose 235(H) 70 - 199 mg/dL [facility] Comment: Interpretive Data Fasting glucose >/= 126 [...] classification and Diagnosis of Diabetes Diabetes Care 2021; 46: S19-S40. Current interpretive data was last revised 2022. Testing performed by: [facility], [address] [place] [address]., [address] Calcium 9.4 8.5 - 10.3 mg/dL JÚNIOR Comment:Testing performed by : [facility], [address] [place] [address]., [address] Blood 12/13/2024 12:5 9 AM CDT 12/13/2024 1:03 AM CDT us Octavio Talley MD LAB BLOOD ORDERABLE S Final Result [facility] [address] [facility] Department [place] [address] * ECG 12 lead (12/08/2024 8:59 PM CDT) Ventricular Rate EKG/Min 101 BPM [facility] Atrial Rate 101 BPM [facility] MA-Interval (MSEC) 128 ms [facility] QRS-Interval (MSEC) 150 ms [facility] QT-Interval (MSEC) 400 ms [facility] QTc 518 ms [facility] P [place] 49 degrees [facility] R [place] -57 degrees [facility] T [place] 106 degrees [facility] Diagnosis Sinus tachycardia Possible Left atrial enlargement Left axis deviation Left bundle branch block Abnormal ECG When compared with ECG of 08-DEC-2024 16:50, No significant change was found Confirmed by SULTAN ESPINOZA M.D. ([id number]) on 12/09/2024 2:25:54 PM [facility] 12/08/2024 8:59 PM CDT 12/09/2024 2:25 PM CDT us Jenny Chairez NP ECG ORDERABLES Final Result Performing Organization Address City/[facility]/ZIP Co de Phone Number [facility] * POCT glucose (12/08/2024 5:41 PM CDT) Pathologist [facility] Glucose, POC 195 70 - 199 mg/dL Glucose comment 1 Use This Result [facility] Glucose comment 2 RN/MD Notified [facility] Blood 12/08/2024 5:41 PM CDT 12/08/2024 5:41 PM CDT us Notinfile Unknown LAB POCT ORDERABLES - DEVICE F inal Result Performing Organization Address [facility] Co de Phone Number [facility] [address] [facility] Department [place] [address] * ECG 12 lead (12/08/2024 4:50 PM CDT) [facility] Signature Ventricular Rate EKG/Min 89 BPM [facility] Atrial Rate 89 BPM [facility] MA-Interval (MSEC) 138 ms [facility] QRS-Interval (MSEC) 144 ms [facility] QT-Interval (MSEC) 416 ms [facility] QTc 506 ms [facility] P [place] 52 degrees [facility] R [place] -44 degrees [facility] T [place] 143 degrees [facility] Diagnosis Normal sinus rhythm Left axis deviation Left bundle branch block Abnormal ECG When compared with ECG of 12-NOV-2024 22:48, No significant change was found Confirmed by JIMMY CALDERÓN M.D. ([id number]) on 12/09/2024 10:04:09 AM [facility] 12/08/2024 4:50 PM CDT 12/09/2024 10:04 AM CDT us Ana María GREEN ECG ORDERABLES Final Result Performing Organization Address [facility]/ZIP Co de Phone Number [facility] * (ABNORMAL) POCT glucose (12/08/2024 2:46 PM CDT) Glucose, POC 249(H) 70 - 199 mg/dL Glucose comment 1 Use This Result [facility] Glucose comment 2 RN/MD Notified [facility] Blood 12/08/2024 2:46 PM CDT 12/08/2024 2:46 PM CDT Notinfile Unknown LAB POCT ORDERABLES - DEVICE F inal Result Performing Organization Address [facility] Co de Phone Number [address] [place] [address] * (ABNORMAL) Urinalysis reflex to microscopic and culture Urine (12/08/2024 8:39 AM CDT) Color, ur Yellow Yellow Clarity, ur Clear Clear [facility] Specific gravity, ur 1.022 1.003 - 1.030 [facility] pH, urine 5.5 [facility] Comment: Interpretive Data U rine pH is affected by diet, medications, systemic acid-base disturbances, and renal tubular function. pH may affect urinary stone formation. For example, urine pH below 6.0 may help reduce the tendency for calcium phosphate stones and pH greater than 6.0 may reduce the tendency for uric acid stone formation. Source: [facility] Current Interpretive Data was last revised on 2017 Protein, ur ql 1+(A) Negative [facility] Glucose, ur ql Negative Negative [facility] Ketones, ur Negative Negative [facility] Bilirubin, ur Negative Negative [facility] Blood, ur Negative Negative [facility] Urobilinogen, ur <2.0 <2.0 mg/dL [facility] Nitrite, ur Negative Negative [facility] Leukocyte esterase, ur Negative Negative [facility] UA reflex comment Reflex to microscopic [facility] will be performed. [facility] 12/08/2024 8:39 AM CDT 12/08/2024 8:40 AM CDT Yasmani Peacock MD LAB MICROBIOLOGY - GENERAL ORDERABLES Final Result Performing Organization Address [facility]/ZIP Co de Phone Number JÚNIOR [address] Department [place] [address] * (ABNORMAL) Drugs of Abuse Screen, Urine without Confirmation (12/08/2024 8:39 AM CDT) [facility] Amphetamine, ur Not Detected CutOff 500ng/mL Comment: Interpretive Data - Amphetamines: Samples containing greater than 500 ng/mL d-methamphetamine or other cross-reacting amphetamine compounds are reported as positive. Amphetamine immunoassays are subject to significant false positive rates due to cross-reactivity of non-amphetamine drugs. Confirmatory testing required for definitive results. Current Interpretive Data was last reviewed 2022. Barbiturates, ur Not Detected CutOff 200ng/mL [facility] Comment: Interpretive Data - Barbiturates: Samples containing greater than 200 ng/mL secobarbital or other cross-reacting barbiturate compounds are reported as positive. False positive and false negative results are possible. Confirmatory testing required for definitive results. Current Interpretive Data was last reviewed 2022. Benzodiazepines, ur Not Detected CutOff 100ng/mL [facility] Comment: Interpretive Data - Benzodiazepines: Samples containing greater than 100 ng/mL nordiazepam or other cross-reacting compounds are reported as positive. False positive and false negative results are possible. Confirmatory testing required for definitive results. Current Interpretive Data was last reviewed 2022. Cannabinoids, ur Not Detected CutOff 50 ng/mL [facility] Comment: Interpretive Data - Cannabinoids: Samples containing greater than 50 ng/mL delta-9 THC -COOH or other cross- reacting compounds are reported as positive. False positive and false negative results are possible. Confirmatory testing required for definitive results. Current Interpretive Data was last reviewed 2022. Cocaine, ur Screen Positive, presumptive (A) CutOff 150ng/mL [facility] Comment: Interpretive Data - Cocaine: Samples containing greater than 150 ng/mL benzoylecgonine or other cross- reacting compounds are reported as positive. False positive and false negative results are possible. Confirmatory testing required for definitive results. Current Interpretive Data was last reviewed 2022. Fentanyl, Ur Not Detected CutOff 5 ng/mL [facility] Comment: Interpretive Data - Fentanyl: Samples containing [...] last reviewed 2022. Urine Creatinine 262 mg/dL JÚNIOR Comment: Interpretive Data Urine Creatinine: < 10 mg/dL is extremely dilute = or > 10 but < 20 mg/dL is dilute = or > 20 mg/dL is normal Current Interpretive Data was last revised on 2017. Urine 12/08/2024 8:39 AM CDT 12/08/2024 8:40 AM CDT Narrative [facility] - 12/08/2024 9:05 AM CDT Drug of Abuse screening is performed by immunoassay for medical purposes only. This is not to be used for Pain Management purposes. Yasmani Peacock MD LAB URINE ORDERABLES Final Result [facility] [address] [place] [address] * (ABNORMAL) Urinalysis, microscopic only (12/08/2024 8:39 AM CDT) WBC, ur 0-5 0 - 5 /HPF RBC, ur 0-2 0 - 2 /HPF [facility] Epithelial cells, squamous, ur 1-5 0 - 5 /HPF [facility] Mucous, ur Present(A) [facility] Culture Reflex Comment Reflex conditions for urine culture (WBC >10) not met. [facility] Urine 12/08/2024 8:39 AM CDT 12/08/2024 8:40 AM CDT Yasmani Peacock MD LAB URINE ORDERABLES Final Result Performing Organization Address [facility] de Phone Number [place] [phone] [place] [address] * Influenza A/B, RSV, and COVID-19 PCR Nasopharyngeal (12/08/2024 2:31 AM CDT) COVID-19 RNA Negative Negative Influenza A RNA Negative Negative [facility] Influenza B RNA Negative Negative [facility] RSV RNA Negative Negative [facility] Comment: Interpretive data: Testing performed by [facility]. This test is performed using the [employer] Xpert Xpress CoV-2/Flu/RSV plus assay. This is a multiplex, real-time reverse transcriptase PCR assay intended for the qualitative detection of nucleic acid from SARS-CoV-2, influenza A, influenza B, and respiratory syncytial virus. This assay has been cleared by the [place] Food and Drug administration. The performance characteristics have been verified by the [facility]. Results must be considered in the clinical context, and a negative result does not rule out infection. Interpretive Data last revised 2023 Nasopharyngeal 12/08/2024 2: 31 AM CDT 12/08/2024 2:37 AM CDT Narrative [facility] - 12/08/2024 3:16 AM CDT Is the Patient experiencing symptoms consistent with COVID?->No Yasmani Peacock MD LAB MICROBIOLOGY - GENERAL ORDERABLES Final Result Performing Organization Address [facility] de Phone Number JÚNIOR [address] [place] [address] * eGFR (12/08/2024 2:31 AM CDT) Pathologist [facility] eGFR 86 >=60 mL/min/1. 73 m2 Comment: [...] BLOOD ORDERABLES Final Result Performing Organization Address [facility] Co de Phone Number JÚNIOR [address] Department [place] [address] * Differential, auto (12/08/2024 2:31 AM CDT) Pathologist [facility] Neutrophil abs 2.36 1.50 - 6.50 K/cumm Imm gran abs 0.01 0.00 - 0.10 K/cumm [facility] Lymphocyte abs 2.76 0.80 - 3.30 K/cumm [facility] Monocyte abs 0.44 0.20 - 0.80 K/cumm [facility] Eosinophil abs 0.23 0.00 - 0.50 K/cumm [facility] Basophil abs 0.05 0.00 - 0.10 K/cumm [facility] Neutrophil pct 40.3 % [facility] Comment: Interpretive Data Percent cell count reference ranges are not reported, since discordance with absolute values may lead to misinterpretation of CBC data. Current Interpretive Data was last revised on 2017. Imm gran pct 0.2 % [facility] Comment: Interpretive Data Percent cell count reference ranges are not reported, since discordance with absolute values may lead to misinterpretation of CBC data. Current Interpretive Data was last revised on 2017. Lymphocyte pct 47.2 % [facility] Comment: Interpretive Data Percent cell count reference ranges are not reported, since discordance with absolute values may lead to misinterpretation of CBC data. Current Interpretive Data was last revised on 2017. Monocyte pct 7.5 % [facility] Comment: Interpretive Data Percent cell count reference ranges are not reported, since discordance with absolute values may lead to misinterpretation of CBC data. Current Interpretive Data was last revised on 2017. Eosinophil pct 3.9 % [facility] Comment: Interpretive Data Percent cell count reference ranges are not reported, since discordance with absolute values may lead to misinterpretation of CBC data. Current Interpretive Data was last revised on 2017. Basophil pct 0.9 % [facility] Comment: Interpretive Data Percent cell count reference ranges are not reported, since discordance with absolute values may lead to misinterpretation of CBC data. Current Interpretive Data was last revised on 2017. Blood 12/08/2024 2:31 AM CDT 12/08/2024 2:37 AM CDT us Yasmani Peacock MD LAB BLOOD ORDERABLES Final Result JÚNIOR [address] [facility] Department of Laboratories [place], [place] [id number] * Thyroid Function [place] (12/08/2024 2:31 AM CDT) TSH 1.21 0.30 - 4.20 mcIUnit/mL Blood 12/08/2024 2:31 AM CDT 12/08/2024 2:37 AM CDT Yasmani Peacock MD LAB BLOOD ORDERABLES Final Result Performing Organization Address [facility] Co de Phone Number JÚNIOR [address] [place] [address] * (ABNORMAL) CBC with auto differential (12/08/2024 2:31 AM CDT) [facility] WBC 5.85 3.80 - 9.90 K/cumm Hgb 11.7(L) 13.0 - 17.5 g/dL [facility] Hct 36.3(L) 38.9 - 50.3 % [facility] Plt 238 150 - 400 K/cumm [facility] MPV 9.0(L) 9.1 - 12.3 fL [facility] RBC 4.44 4.30 - 5.80 M/cumm [facility] MCV 81.8 81.3 - 96.4 fL [facility] MCH 26.4(L) 27.1 - 33.3 pg [facility] MCHC 32.2(L) 32.3 - 35.7 g/dL [facility] RDW CV 15.4(H) 11.1 - 14.9 % [facility] RDW SD 45.9 35.7 - 48.1 fL [facility] NRBC abs 0.00 0.00 - 0.01 K/cumm [facility] Blood Venous blood specimen / Unknown 12/08/2024 2:31 AM CDT 12/08/2024 2:37 AM CDT Yasmani Peacock MD LAB BLOOD ORDERABLES Final Result Performing Organization Address City/[facility]/ZIP Co de Phone Number JÚNIOR [address] [place] [address] * Ethanol (12/08/2024 2:31 AM CDT) [facility] Ethanol <10 <=10 mg/dL Comment: Interpretive Data Legal limit of intoxication > or = 80 mg/dL Levels > or = 400 mg/dL are potentially TOXIC. Current interpretive data was last revised on 2018. Blood 12/08/2024 2:31 AM CDT 12/08/2024 2:37 AM CDT Yasmani Peacock MD LAB BLOOD ORDERABLES Final Result [facility] [address] [facility] Department [place] [address] * Comprehensive metabolic panel (12/08/2024 2:31 AM CDT) Sodium 143 135 - 145 mmol/L Potassium, pl 4.0 3.3 - 4.9 mmol/L [facility] Chloride 109 97 - 110 mmol/L [facility] CO2 23 22 - 32 mmol/L [facility] Anion gap 11 2 - 15 mmol/L [facility] BUN 11 6 - 25 mg/dL [facility] Creatinine 1.01 0.80 - 1.30 mg/dL [facility] Glucose 194 70 - 199 mg/dL [facility] Comment: Interpretive Data Fasting glucose >/= 126 [...] 2022. Calcium 9.1 8.5 - 10.3 mg/dL [facility] Bilirubin, total 0.3 0.1 - 1.2 mg/dL [facility] Protein, pl 7.1 6.5 - 8.5 g/dL [facility] Albumin 4.2 3.5 - 5.0 g/dL [facility] Alk phos 62 40 - 130 Units/L [facility] ALT 13 7 - 55 Units/L [facility] AST 26 10 - 50 Units/L [facility] Blood 12/08/2024 2:31 AM CDT 12/08/2024 2:37 AM CDT Yasmani Peacock MD LAB BLOOD ORDERABLES Final Result Performing Organization Address [facility] Co de Phone Number JÚNIOR [address] [address] * (ABNORMAL) Troponin T high-sensitivity 2-hour (11/13/2024 1:09 AM CDT) Trop T hs 97(H) <=22 ng/L Comment: Interpretive Data For further hscTnT resources including the diagnostic algorithm and an aid in interpretation, copy and paste this link: https://nrl.testcatalog.org/show/hsTrop Current Interpretive Data last revised 2020. Trop T hs pct delta -6 % [facility] Trop T hs interp Equivocal [facility] Blood 11/13/2024 1:09 AM CDT 11/13/2024 1:11 AM CDT Ernie Suarez DO LAB BLOOD ORDERABLES Final Res ult Performing Organization Address [facility] Co de Phone Number JÚNIOR [address] [address] * XR Chest 1 Vw Portable (if [...] - Electronically signed by Marquis Katz M.D. KH T: Report ID: [id number] Reading Location: [place] [address] Procedure Note Marquis Katz MD - 11/12/2024 EXAM DESCRIPTION: XR CHEST 1 VIEW REASON FOR STUDY: chest pain Patient BiBEMS from home for left sided chest pain which started [id number]. Patient reports having chest pain, depression and [...] - Electronically signed by Marquis Katz M.D. KH T: Report ID: [id number] Reading Location: [place] [address] Ernie Suarez DO IMG XR PROCEDURES Final Result * (ABNORMAL) Urinalysis reflex to microscopic and culture Urine (11/12/2024 10:58 PM CDT) Color, ur Yellow Yellow Clarity, ur Clear Clear JÚNIOR Specific gravity, ur 1.015 1.003 - 1.030 [facility] pH, urine 5.5 [facility] Comment: Interpretive Data U rine pH is affected by diet, medications, systemic acid-base disturbances, and renal tubular function. pH may affect urinary stone formation. For example, urine pH below 6.0 may help reduce the tendency for calcium phosphate stones and pH greater than 6.0 may reduce the tendency for uric acid stone formation. Source: [facility] Current Interpretive Data was last revised on 2017 Protein, ur ql 1+(A) Negative [facility] Glucose, ur ql Negative Negative [facility] Ketones, ur Negative Negative [facility] Bilirubin, ur Negative Negative [facility] Blood, ur Negative Negative [facility] Urobilinogen, ur <2.0 <2.0 mg/dL [facility] Nitrite, ur Negative Negative [facility] Leukocyte esterase, ur Negative Negative [facility] UA reflex comment Reflex to microscopic UA will be performed. [facility] Urine 11/12/2024 10:5 8 PM CDT 11/12/2024 11:04 PM CDT Ernie Suarez DO LAB MICROBIOLOGY - GENERAL ORD ERABLES Final Result JÚNIOR [address] [facility] Department [place] [address] * (ABNORMAL) Drugs of Abuse Screen, Urine without Confirmation (11/12/2024 10:58 PM CDT) Amphetamine, ur Not Detected CutOff 500ng/mL Comment: Interpretive Data - Amphetamines: Samples containing greater than 500 ng/mL d-methamphetamine or other cross-reacting amphetamine compounds are reported as positive. Amphetamine immunoassays are subject to significant false positive rates due to cross-reactivity of non-amphetamine drugs. Confirmatory testing required for definitive results. Current Interpretive Data was last reviewed 2022. Barbiturates, ur Not Detected CutOff 200ng/mL [facility] Comment: Interpretive Data - Barbiturates: Samples containing greater than 200 ng/mL secobarbital or other cross-reacting barbiturate compounds are reported as positive. False positive and false negative results are possible. Confirmatory testing required for definitive results. Current Interpretive Data was last reviewed 2022. Benzodiazepines, ur Not Detected CutOff 100ng/mL [facility] Comment: Interpretive Data - Benzodiazepines: Samples containing greater than 100 ng/mL nordiazepam or other cross-reacting compounds are reported as positive. False positive and false negative results are possible. Confirmatory testing required for definitive results. Current Interpretive Data was last reviewed 2022. Cannabinoids, ur Screen Positive, presumptive (A) CutOff 50 ng/mL [facility] Comment: Interpretive Data - Cannabinoids: Samples containing greater than 50 ng/mL delta-9 THC -COOH or other cross- reacting compounds are reported as positive. False positive and false negative results are possible. Confirmatory testing required for definitive results. Current Interpretive Data was last reviewed 2022. Cocaine, ur Screen Positive, presumptive (A) CutOff 150ng/mL [facility] Comment: Interpretive Data - Cocaine: Samples containing greater than 150 ng/mL benzoylecgonine or other cross- reacting compounds are reported as positive. False positive and false negative results are possible. Confirmatory testing required for definitive results. Current Interpretive Data was last reviewed 2022. Fentanyl, Ur Not Detected CutOff 5 ng/mL [facility] Comment: Interpretive Data - Fentanyl: Samples containing greater than 5 ng/mL norfentanyl, fentanyl, or other cross-reacting fentanyl compounds are reported as positive. False positive and false negative results are possible. Confirmatory testing required for definitive results. Current Interpretive Data was last reviewed 2023. Methadone, ur Not Detected CutOff 300ng/mL [facility] Comment: Interpretive Data - Methadone: Samples containing greater than 300 ng/mL d,l-methadone or other cross-reacting compounds are reported as positive. False positive and false negative results are possible. Confirmatory testing required for definitive results. Current Interpretive Data was last reviewed 2022. Opiates, ur Not Detected CutOff 300ng/mL [facility] Comment: Interpretive Data - Opiates: Samples containing greater than 300 ng/mL morphine or other cross-reacting compounds are reported as positive. False positive and false negative results are possible. Confirmatory testing required for definitive results. Current Interpretive Data was last reviewed 2022. Oxycodone, ur Not Detected CutOff 100ng/mL [facility] Comment: Interpretive Data - Oxycodone: Samples containing greater than 100 ng/mL oxycodone or other cross-reacting compounds are reported as positive. False positive and false negative results are possible. Confirmatory testing required for definitive results. Current Interpretive Data was last reviewed 2022. Phencyclidine, ur Not Detected CutOff 25 ng/mL [facility] Comment: Interpretive Data - Phencyclidine: Samples containing greater than 25 ng/mL phencyclidine or other cross-reacting compounds are reported as positive. False positive and false negative results are possible. Confirmatory testing required for definitive results. Current Interpretive Data was last reviewed 2022. Urine Creatinine 172 mg/dL [facility] Comment: Interpretive Data Urine Creatinine: < 10 mg/dL is extremely dilute = or > 10 but < 20 mg/dL is dilute = or > 20 mg/dL is normal Current Interpretive Data was last revised on 2017. Urine 11/12/2024 10:5 8 PM CDT 11/12/2024 11:04 PM CDT Narrative [facility] - 11/12/2024 11:34 PM CDT Drug of Abuse screening is performed by immunoassay for medical purposes only. This is not to be used for Pain Management purposes. Ernie Suarez DO LAB URINE ORDERABLES Final Res ult [facility] [address] [facility] Department [place] [address] * Urinalysis, microscopic only (11/12/2024 10:58 PM CDT) WBC, ur 0-5 0 - 5 /HPF RBC, ur 0-2 0 - 2 /HPF [facility] Epithelial cells, squamous, ur 1-5 0 - 5 /HPF [facility] Culture Reflex Comment Reflex conditions for urine culture (WBC >10) not met. [facility] Urine 11/12/2024 10:5 8 PM CDT 11/12/2024 11:04 PM CDT Ernie Suarez DO LAB URINE ORDERABLES Final Res ult Performing Organization Address [facility] Co de Phone Number JÚNIOR [address] [address] * (ABNORMAL) Troponin T high-sensitivity series (baseline, 2hr, 4hr, 6hr) (11/12/2024 10:54 PM CDT) Trop T hs 103(H) <=22 ng/L Comment: Interpretive Data For further hscTnT resources including the diagnostic algorithm and an aid in interpretation, copy and paste this link: https://nrl.testcatalog.org/show/hsTrop Current Interpretive Data last revised 2020. Blood 11/12/2024 10:5 4 PM CDT 11/12/2024 11:04 PM CDT Ernie Erick WONG LAB BLOOD ORDERABLES Final Res ult Performing Organization Address [facility] Co de Phone Number K[address] [address] * COVID-19 Coronavirus RNA Nasopharyngeal (11/12/2024 10:54 PM CDT) Pathologist [facility] COVID-19 RNA Negative Negative Nasopharyngeal 11/12/2024 10 :54 PM CDT 11/12/2024 11:04 PM CDT Narrative [facility] - 11/12/2024 11:40 PM CDT Is the patient experiencing any symptoms consistent with COVID (eg. Fever, cough, shortness of breath)?->No What is the reason for testing?->Screening prior to Behavioral health admission Interpretive data Testing performed by [facility]. This test is performed using the [employer] Xpert Xpress CoV-2 plus assay. This is a real-time RT-PCR test intended for the qualitative detection of nucleic acid from the SARS-CoV-2. This assay has been cleared by the [place] Food and Drug administration. The performance characteristics have been verified by the [facility]. Results must be considered in the clinical context, and a negative result does not rule out infection. Interpretive data last revised 2023. Interpretive data Testing performed by [facility]. This test is performed using the [employer] Xpert Xpress CoV-2 plus assay. This is a real-time RT-PCR test intended for the qualitative detection of nucleic acid from the SARS-CoV-2. This assay has been cleared by the [place] Food and Drug administration. The performance characteristics have been verified by the [facility]. Results must be considered in the clinical context, and a negative result does not rule out infection. Interpretive data last revised 2023. Ernie Suarez DO LAB MICROBIOLOGY - GENERAL ORD ERABLES Final Result JÚNIOR [address] [facility] Department [place] [address] * eGFR (11/12/2024 10:54 PM CDT) eGFR [...] CDT 11/12/2024 11:04 PM CDT us Ernie Prafulamparo DO LAB BLOOD ORDERABLES Final Res ult JÚNIOR [address] [facility] Department [place] [address] * Differential, auto (11/12/2024 10:54 PM CDT) Neutrophil abs 2.15 1.50 - 6.50 K/cumm Imm gran abs 0.01 0.00 - 0.10 K/cumm [facility] Lymphocyte abs 3.11 0.80 - 3.30 K/cumm [facility] Monocyte abs 0.53 0.20 - 0.80 K/cumm [facility] Eosinophil abs 0.22 0.00 - 0.50 K/cumm [facility] Basophil abs 0.04 0.00 - 0.10 K/cumm [facility] Neutrophil pct 35.5 % [facility] Comment: Interpretive Data Percent cell count reference ranges are not reported, since discordance with absolute values may lead to misinterpretation of CBC data. Current Interpretive Data was last revised on 2017. Imm gran pct 0.2 % [facility] Comment: Interpretive Data Percent cell count reference ranges are not reported, since discordance with absolute values may lead to misinterpretation of CBC data. Current Interpretive Data was last revised on 2017. Lymphocyte pct 51.3 % [facility] Comment: Interpretive Data Percent cell count reference ranges are not reported, since discordance with absolute values may lead to misinterpretation of CBC data. Current Interpretive Data was last revised on 2017. Monocyte pct 8.7 % [facility] Comment: Interpretive Data Percent cell count reference ranges are not reported, since discordance with absolute values may lead to misinterpretation of CBC data. Current Interpretive Data was last revised on 2017. Eosinophil pct 3.6 % [facility] Comment: Interpretive Data Percent cell count reference ranges are not reported, since discordance with absolute values may lead to misinterpretation of CBC data. Current Interpretive Data was last revised on 2017. Basophil pct 0.7 % [facility] Comment: Interpretive Data Percent cell count reference ranges are not reported, since discordance with absolute values may lead to misinterpretation of CBC data. Current Interpretive Data was last revised on 2017. Blood 11/12/2024 10:5 4 PM CDT 11/12/2024 11:04 PM CDT Ernie Erick LAB BLOOD ORDERABLES Final Res ult Performing Organization Address City/[facility] Co de Phone Number [address] [place] [address] * (ABNORMAL) CBC with auto differential (11/12/2024 10:54 PM CDT) WBC 6.06 3.80 - 9.90 K/cumm Hgb 12.4(L) 13.0 - 17.5 g/dL [facility] Hct 37.5(L) 38.9 - 50.3 % [facility] Plt 232 150 - 400 K/cumm [facility] MPV 9.4 9.1 - 12.3 fL [facility] RBC 4.67 4.30 - 5.80 M/cumm [facility] MCV 80.3(L) 81.3 - 96.4 fL [facility] MCH 26.6(L) 27.1 - 33.3 pg [facility] MCHC 33.1 32.3 - 35.7 g/dL [facility] RDW CV 15.9(H) 11.1 - 14.9 % [facility] RDW SD 46.0 35.7 - 48.1 fL [facility] NRBC abs 0.00 0.00 - 0.01 K/cumm [facility] Blood Venous blood specimen / Unknown 11/12/2024 10:54 PM CDT 11/12/2024 11:04 PM CDT Ernie Suarez LAB BLOOD ORDERABLES Final Res ult Performing Organization Address City/[facility]/ZIP Co de Phone Number KATHY[address] [place] [address] * (ABNORMAL) Ethanol (11/12/2024 10:54 PM CDT) Ethanol 77(H) <=10 mg/dL Comment: Interpretive Data Legal limit of intoxication > or = 80 mg/dL Levels > or = 400 mg/dL are potentially TOXIC. Current interpretive data was last revised on 2018. Blood 11/12/2024 10:5 4 PM CDT 11/12/2024 11:04 PM CDT us Ernie Suarez DO LAB BLOOD ORDERABLES Final Res ult [facility] [address] [facility] Department [place] [address] * (ABNORMAL) Comprehensive metabolic panel (11/12/2024 10:54 PM CDT) Pathologist [facility] Sodium 137 135 - 145 mmol/L Potassium, pl 3.6 3.3 - 4.9 mmol/L [facility] Chloride 102 97 - 110 mmol/L [facility] CO2 21(L) 22 - 32 mmol/L [facility] Anion gap 14 2 - 15 mmol/L [facility] BUN 16 6 - 25 mg/dL [facility] Creatinine 1.04 0.80 - 1.30 mg/dL [facility] Glucose 202(H) 70 - 199 mg/dL [facility] Comment: Interpretive Data Fasting glucose >/= 126 [...] 2022. Calcium 8.8 8.5 - 10.3 mg/dL [facility] Bilirubin, total 0.7 0.1 - 1.2 mg/dL [facility] Protein, pl 7.2 6.5 - 8.5 g/dL [facility] Albumin 4.0 3.5 - 5.0 g/dL [facility] Alk phos 61 40 - 130 Units/L [facility] ALT 16 7 - 55 Units/L [facility] AST 30 10 - 50 Units/L [facility] Blood 11/12/2024 10:5 4 PM CDT 11/12/2024 11:04 PM CDT Ernie Suarez DO LAB BLOOD ORDERABLES Final Res ult Performing Organization Address [facility] Co de Phone Number JÚNIOR [address] Department [place] [address] * ECG 12 lead (11/12/2024 10:48 PM CDT) Ventricular Rate EKG/Min 87 BPM [facility] Atrial Rate 87 BPM [facility] MA-Interval (MSEC) 138 ms [facility] QRS-Interval (MSEC) 150 ms [facility] QT-Interval (MSEC) 436 ms [facility] QTc 524 ms [facility] P [place] 44 degrees [facility] R [place] -51 degrees [facility] T [place] 130 degrees [facility] Diagnosis Normal sinus rhythm Possible Left atrial enlargement Left axis deviation Left bundle branch block Confirmed by YASH ARNOLD M.D. ([facility]) on 11/13/2024 5:43:10 PM [facility] 11/12/2024 10:4 8 PM CDT 11/13/2024 5:43 PM CDT Ernie Suarez DO ECG ORDERABLES Final Result Performing Organization Address [facility] de Phone Number [facility] * POCT glucose (11/08/2024 12:46 PM CDT) Glucose, POC 123 70 - 199 mg/dL Blood 11/08/2024 12:4 6 PM CDT 11/08/2024 12:46 PM CDT Notinfile Unknown LAB POCT ORDERABLES - DEVICE F inal Result Performing Organization Address [facility]/ZIP Co de Phone Number JÚNIOR MH [address] [facility] [place] [address] * (ABNORMAL) Urinalysis reflex to microscopic and culture Urine (11/08/2024 7:31 AM CDT) Color, ur Yellow Yellow Clarity, ur Clear Clear [facility] Specific gravity, ur 1.025 1.003 - 1.030 [facility] pH, urine 6.0 [facility] Comment: Interpretive Data U rine pH is affected by diet, medications, systemic acid-base disturbances, and renal tubular function. pH may affect urinary stone formation. For example, urine pH below 6.0 may help reduce the tendency for calcium phosphate stones and pH greater than 6.0 may reduce the tendency for uric acid stone formation. Source: [facility] Current Interpretive Data was last revised on 2017 Protein, ur ql 1+(A) Negative [facility] Glucose, ur ql Negative Negative [facility] Ketones, ur Negative Negative [facility] Bilirubin, ur Negative Negative [facility] Blood, ur Negative Negative [facility] Urobilinogen, ur <2.0 <2.0 mg/dL [facility] Nitrite, ur Negative Negative [facility] Leukocyte esterase, ur Negative Negative [facility] UA reflex comment Reflex to microscopic UA will be performed. [facility] Urine 11/08/2024 7:31 AM CDT 11/08/2024 7:33 AM CDT us Mayra GREEN LAB MICROBIOLOGY - GENERAL ORDER ANISA Final Result J[facility]OR [address] [place] [address] * (ABNORMAL) Drugs of Abuse Screen, Urine without Confirmation (11/08/2024 7:31 AM CDT) Pathologist [facility] Amphetamine, ur Not Detected CutOff 500ng/mL Comment: Interpretive Data - Amphetamines: Samples containing greater than 500 ng/mL d-methamphetamine or other cross-reacting amphetamine compounds are reported as positive. Amphetamine immunoassays are subject to significant false positive rates due to cross-reactivity of non-amphetamine drugs. Confirmatory testing required for definitive results. Current Interpretive Data was last reviewed 2022. Barbiturates, ur Not Detected CutOff 200ng/mL [facility] Comment: Interpretive Data - Barbiturates: Samples containing greater than 200 ng/mL secobarbital or other cross-reacting barbiturate compounds are reported as positive. False positive and false negative results are possible. Confirmatory testing required for definitive results. Current Interpretive Data was last reviewed 2022. Benzodiazepines, ur Not Detected CutOff 100ng/mL [facility] Comment: Interpretive Data - Benzodiazepines: Samples containing greater than 100 ng/mL nordiazepam or other cross-reacting compounds are reported as positive. False positive and false negative results are possible. Confirmatory testing required for definitive results. Current Interpretive Data was last reviewed 2022. Cannabinoids, ur Not Detected CutOff 50 ng/mL [facility] Comment: Interpretive Data - Cannabinoids: Samples containing greater than 50 ng/mL delta-9 THC -COOH or other cross- reacting compounds are reported as positive. False positive and false negative results are possible. Confirmatory testing required for definitive results. Current Interpretive Data was last reviewed 2022. Cocaine, ur Screen Positive, presumptive (A) CutOff 150ng/mL [facility] Comment: Interpretive Data - Cocaine: Samples containing greater than 150 ng/mL benzoylecgonine or other cross- reacting compounds are reported as positive. False positive and false negative results are possible. Confirmatory testing required for definitive results. Current Interpretive Data was last reviewed 2022. Fentanyl, Ur Not Detected CutOff 5 ng/mL [facility] Comment: Interpretive Data - Fentanyl: Samples containing greater than 5 ng/mL norfentanyl, fentanyl, or other cross-reacting fentanyl compounds are reported as positive. False positive and false negative results are possible. Confirmatory testing required for definitive results. Current Interpretive Data was last reviewed 2023. Methadone, ur Not Detected CutOff 300ng/mL [facility] Comment: Interpretive Data - Methadone: Samples containing greater than 300 ng/mL d,l-methadone or other cross-reacting compounds are reported as positive. False positive and false negative results are possible. Confirmatory testing required for definitive results. Current Interpretive Data was last reviewed 2022. Opiates, ur Not Detected CutOff 300ng/mL [facility] Comment: Interpretive Data - Opiates: Samples containing [...] AM CDT 11/08/2024 7:33 AM CDT [facility] - 11/08/2024 8:06 AM CDT Drug of Abuse screening is performed by immunoassay for medical purposes only. This is not to be used for Pain Management purposes. us Mayra GREEN LAB URINE ORDERABLES Final Resul t J[facility]OR [address] [facility] Department [place] [address] * (ABNORMAL) Urinalysis, microscopic only (11/08/2024 7:31 AM CDT) WBC, ur 0-5 0 - 5 /HPF RBC, ur 0-2 0 - 2 /HPF J[facility]OR Mucous, ur Present(A) J[facility]OR Culture Reflex Comment Reflex conditions for urine culture (WBC >10) not met. J[facility]NIOR Urine 11/08/2024 7:31 AM CDT 11/08/2024 7:33 AM CDT Mayra GREEN LAB URINE ORDERABLES Final Resul t Performing Organization Address [facility] Co de Phone Number JÚNIOR [address] [address] * Influenza A/B, RSV, and COVID-19 PCR Nasopharyngeal (11/08/2024 3:18 AM CDT) [facility] COVID-19 RNA Negative Negative Influenza A RNA Negative Negative [facility] Influenza B RNA Negative Negative [facility] RSV RNA Negative Negative [facility] Comment: Interpretive data: Testing performed by [facility]. This test is performed using the [employer]oo[employer] Xpert Xpress CoV-2/Flu/RSV plus assay. This is a multiplex, real-time reverse transcriptase PCR assay intended for the qualitative detection of nucleic acid from SARS-CoV-2, influenza A, influenza B, and respiratory syncytial virus. This assay has been cleared by the [place] Food and Drug administration. The performance characteristics have been verified by the [facility]. Results must be considered in the clinical context, and a negative result does not rule out infection. Interpretive Data last revised 2023 Nasopharyngeal 11/08/2024 3: 18 AM CDT 11/08/2024 3:21 AM CDT Narrative [facility] - 11/08/2024 4:00 AM CDT Is the Patient experiencing symptoms consistent with COVID?->Unknown Mayra GREEN LAB MICROBIOLOGY - GENERAL ORDER ANISA Final Result Performing Organization Address City/[facility]/ZIP Co de Phone Number JÚNIOR [address] [address] * eGFR (11/08/2024 3:18 AM CDT) [facility] eGFR >90 >=60 mL/min/1. 73 m2 Comment: [...] GREEN LAB BLOOD ORDERABLES Final Resul t [facility] [address] [facility] Department [place] [address] * Differential, auto (11/08/2024 3:18 AM CDT) Neutrophil abs 2.10 1.50 - 6.50 K/cumm Imm gran abs 0.01 0.00 - 0.10 K/cumm [facility] Lymphocyte abs 3.24 0.80 - 3.30 K/cumm [facility] Monocyte abs 0.51 0.20 - 0.80 K/cumm [facility] Eosinophil abs 0.29 0.00 - 0.50 K/cumm [facility] Basophil abs 0.06 0.00 - 0.10 K/cumm [facility] Neutrophil pct 33.7 % [facility] Comment: Interpretive Data Percent cell count reference ranges are not reported, since discordance with absolute values may lead to misinterpretation of CBC data. Current Interpretive Data was last revised on 2017. Imm gran pct 0.2 % [facility] Comment: Interpretive Data Percent cell count reference ranges are not reported, since discordance with absolute values may lead to misinterpretation of CBC data. Current Interpretive Data was last revised on 2017. Lymphocyte pct 52.2 % [facility] Comment: Interpretive Data Percent cell count reference ranges are not reported, since discordance with absolute values may lead to misinterpretation of CBC data. Current Interpretive Data was last revised on 2017. Monocyte pct 8.2 % [facility] Comment: Interpretive Data Percent cell count reference ranges are not reported, since discordance with absolute values may lead to misinterpretation of CBC data. Current Interpretive Data was last revised on 2017. Eosinophil pct 4.7 % [facility] Comment: Interpretive Data Percent cell count reference ranges are not reported, since discordance with absolute values may lead to misinterpretation of CBC data. Current Interpretive Data was last revised on 2017. Basophil pct 1.0 % [facility] Comment: Interpretive Data Percent cell count reference ranges are not reported, since discordance with absolute values may lead to misinterpretation of CBC data. Current Interpretive Data was last revised on 2017. Blood 11/08/2024 3:18 AM CDT 11/08/2024 3:20 AM CDT us Mayra Ward [place] LAB BLOOD ORDERABLES Final Resul t Performing Organization Address City/[facility] Co de Phone Number [address] [address] * Thyroid Function [place] (11/08/2024 3:18 AM CDT) Pathologist [facility] TSH 1.01 0.30 - 4.20 mcIUnit/mL Blood 11/08/2024 3:18 AM CDT 11/08/2024 3:20 AM CDT Mayra Ed GA LAB BLOOD ORDERABLES Final Resul t Performing Organization Address [facility] Co de Phone Number [address] [address] * (ABNORMAL) CBC with auto differential (11/08/2024 3:18 AM CDT) Pathologist [facility] WBC 6.21 3.80 - 9.90 K/cumm Hgb 12.3(L) 13.0 - 17.5 g/dL [facility] Hct 38.3(L) 38.9 - 50.3 % [facility] Plt 259 150 - 400 K/cumm [facility] MPV 10.0 9.1 - 12.3 fL [facility] RBC 4.70 4.30 - 5.80 M/cumm [facility] MCV 81.5 81.3 - 96.4 fL [facility] MCH 26.2(L) 27.1 - 33.3 pg [facility] MCHC 32.1(L) 32.3 - 35.7 g/dL [facility] RDW CV 15.9(H) 11.1 - 14.9 % [facility] RDW SD 47.4 35.7 - 48.1 fL [facility] NRBC abs 0.00 0.00 - 0.01 K/cumm [facility] Blood 11/08/2024 3:18 AM CDT 11/08/2024 3:20 AM CDT us [employer] LAB BLOOD ORDERABLES Final Resul t Performing Organization Address [facility] de Phone Number [address] [place] [address] * (ABNORMAL) Ethanol (11/08/2024 3:18 AM CDT) Pathologist [facility] Ethanol 39(H) <=10 mg/dL Comment: Interpretive Data Legal limit of intoxication > or = 80 mg/dL Levels > or = 400 mg/dL are potentially TOXIC. Current interpretive data was last revised on 2018. Blood 11/08/2024 3:18 AM CDT 11/08/2024 3:20 AM CDT us [facility] LAB BLOOD ORDERABLES Final Resul t Performing Organization Address [facility] Co de Phone Number [address] [place] [address] * (ABNORMAL) Comprehensive metabolic panel (11/08/2024 3:18 AM CDT) Sodium 140 135 - 145 mmol/L Potassium, pl 4.1 3.3 - 4.9 mmol/L [facility] Comment:Hemolyzed; Potassium value may be falsely elevated by as much as 1.0 mmol/L. Suggest redraw and reanalysis. Chloride 104 97 - 110 mmol/L [facility] CO2 22 22 - 32 mmol/L [facility] Anion gap 14 2 - 15 mmol/L [facility] BUN 15 6 - 25 mg/dL [facility] Creatinine 0.96 0.80 - 1.30 mg/dL [facility] Glucose 230(H) 70 - 199 mg/dL [facility] Comment: Interpretive Data Fasting glucose >/= 126 [...] classification and Diagnosis of Diabetes Diabetes Care 2021; 46: S19-S40. Current interpretive data was last revised 2022. Calcium 9.0 8.5 - 10.3 mg/dL [facility] Bilirubin, total 0.2 0.1 - 1.2 mg/dL [facility] Protein, pl 7.4 6.5 - 8.5 g/dL [facility] Albumin 4.0 3.5 - 5.0 g/dL [facility] Alk phos 62 40 - 130 Units/L [facility] ALT 17 7 - 55 Units/L [facility] AST 30 10 - 50 Units/L [facility] Blood 11/08/2024 3:18 AM CDT 11/08/2024 3:20 AM CDT us Mayra GREEN LAB BLOOD ORDERABLES Final Resul t [facility] [address] [facility] Department [place] [address] * Urinalysis reflex to microscopic and culture Urine, clean voided (10/14/2024 10:49 AM CDT) Color, ur Yellow Yellow Comment:Testing performed by : [address] [address] Clarity, ur Clear Clear JÚNIOR Comment:Testing performed by : [address], [place]., [address] Specific gravity, ur 1.009 1.003 - 1.030 J[facility]NIOR Comment:Testing performed by : [address], [place]., [address] pH, urine 5.5 JÚNIOR Comment: Interpretive Data U rine pH is affected by diet, medications, systemic acid-base disturbances, and renal tubular function. pH may affect urinary stone formation. For example, urine pH below 6.0 may help reduce the tendency for calcium phosphate stones and pH greater than 6.0 may reduce the tendency for uric acid stone formation. Source: [facility] Current Interpretive Data was last revised on 2017 Testing performed by: [address] [address] Protein, ur ql Negative Negative JÚNIOR Comment:Testing performed by : [address] [address] Glucose, ur ql Negative Negative JÚNIOR Comment:Testing performed by : [address] [address] Ketones, ur Negative Negative JÚNIOR Comment:Testing performed by : [address] [address] Bilirubin, ur Negative Negative JÚNIOR Comment:Testing performed by : [address] [address] Blood, ur Negative Negative JÚNIOR Comment:Testing performed by : [address] [address] Urobilinogen, ur <2.0 <2.0 mg/dL JÚNIOR Comment:Testing performed by : [address], [place]., [address] Nitrite, ur Negative Negative JÚNIOR Comment:Testing performed by : [address] [address] Leukocyte esterase, ur Negative Negative JÚNIOR Comment:Testing performed by : [address] [address] UA reflex comment Reflex conditions for microscopic UA and culture not met. JÚNIOR Comment:Testing performed by : [address] [address] Urine, clean voided 10/14/2024 10:49 AM CDT 10/14/2024 10:51 AM CDT us Radha Hobson MD LAB MICROBIOLOGY - GENERA L ORDERABLES Final Result [facility] [address] [facility] Department [place] [address] * Influenza A/B, RSV, and COVID-19 PCR Nasopharyngeal (10/14/2024 10:03 AM CDT) COVID-19 RNA Negative Negative Comment:Testing performed by : [address] [address] Influenza A RNA Negative Negative J[facility]NIOR Comment:Testing performed by : [address] [address] Influenza B RNA Negative Negative JÚNIOR Comment:Testing performed by : [address] [address] RSV RNA Negative Negative JÚNIOR Comment: Interpretive data: Testing performed by [facility]. This test is performed using the [employer] Xpert Xpress CoV-2/Flu/RSV plus assay. This is a multiplex, real-time reverse transcriptase PCR assay intended for the qualitative detection of nucleic acid from SARS-CoV-2, influenza A, influenza B, and respiratory syncytial virus. This assay has been cleared by the [place] Food and Drug administration. The performance characteristics have been verified by the [facility]. Results must be considered in the clinical context, and a negative result does not rule out infection. Interpretive Data last revised 2023 Testing performed by: [address] [address] Nasopharyngeal 10/14/2024 10 :03 AM CDT 10/14/2024 10:09 AM CDT Narrative J[facility]NIOR - 10/14/2024 10:58 AM CDT Is the Patient experiencing symptoms consistent with COVID?->Yes Radha Hobson MD LAB MICROBIOLOGY - GENERA L ORDERABLES Final Result J[facility]OR [address] [facility] Department [place] [address] * (ABNORMAL) Drugs of Abuse Screen, Urine without Confirmation (10/14/2024 5:31 AM CDT) [facility] Amphetamine, ur Not Detected CutOff 500ng/mL Comment: Interpretive Data - Amphetamines: Samples containing greater than 500 ng/mL d-methamphetamine or other cross-reacting amphetamine compounds are reported as positive. Amphetamine immunoassays are subject to significant false positive rates due to cross-reactivity of non-amphetamine drugs. Confirmatory testing required for definitive results. Current Interpretive Data was last reviewed 2022. Testing performed by: [address] [address] Barbiturates, ur Not Detected CutOff 200ng/mL JÚNIOR Comment: Interpretive Data - Barbiturates: Samples containing greater than 200 ng/mL secobarbital or other cross-reacting barbiturate compounds are reported as positive. False positive and false negative results are possible. Confirmatory testing required for definitive results. Current Interpretive Data was last reviewed 2022. Testing performed by: [address] [address] Benzodiazepines, ur Not Detected CutOff 100ng/mL [facility] Comment: Interpretive Data - Benzodiazepines: Samples containing greater than 100 ng/mL nordiazepam or other cross-reacting compounds are reported as positive. False positive and false negative results are possible. Confirmatory testing required for definitive results. Current Interpretive Data was last reviewed 2022. Testing performed by: [address] [address] Cannabinoids, ur Not Detected CutOff 50 ng/mL J[facility] Comment: Interpretive Data - Cannabinoids: Samples containing greater than 50 ng/mL delta-9 THC -COOH or other cross- reacting compounds are reported as positive. False positive and false negative results are possible. Confirmatory testing required for definitive results. Current Interpretive Data was last reviewed 2022. Testing performed by: [address] [address] Cocaine, ur Screen Positive, presumptive (A) CutOff 150ng/mL [facility] Comment: Interpretive Data - Cocaine: Samples containing greater than 150 ng/mL benzoylecgonine or other cross- reacting compounds are reported as positive. False positive and false negative results are possible. Confirmatory testing required for definitive results. Current Interpretive Data was last reviewed 2022. Testing performed by: [address] [address] Fentanyl, Ur Not Detected Cutoff 1 ng/mL [facility] Comment: Interpretive Data - Fentanyl: Samples containing greater than 1 ng/mL fentanyl or other cross-reacting fentanyl compounds are reported as positive. False positive and false negative results are possible. Confirmatory testing required for definitive results. Current Interpretive Data was last reviewed 2022. Testing performed by: [address] [address] Methadone, ur Not Detected CutOff 300ng/mL [facility] Comment: Interpretive Data - Methadone: Samples containing greater than 300 ng/mL d,l-methadone or other cross-reacting compounds are reported as positive. False positive and false negative results are possible. Confirmatory testing required for definitive results. Current Interpretive Data was last reviewed 2022. Testing performed by: [address] [address] Opiates, ur Not Detected CutOff 300ng/mL [facility] Comment: Interpretive Data - Opiates: Samples containing greater than 300 ng/mL morphine or other cross-reacting compounds are reported as positive. False positive and false negative results are possible. Confirmatory testing required for definitive results. Current Interpretive Data was last reviewed 2022. Testing performed by: [address] [address] Oxycodone, ur Not Detected CutOff 100ng/mL [facility] Comment: Interpretive Data - Oxycodone: Samples containing greater than 100 ng/mL oxycodone or other cross-reacting compounds are reported as positive. False positive and false negative results are possible. Confirmatory testing required for definitive results. Current Interpretive Data was last reviewed 2022. Testing performed by: [address] [address] Phencyclidine, ur Not Detected CutOff 25 ng/mL J[facility]NIOR Comment: Interpretive Data - Phencyclidine: Samples containing greater than 25 ng/mL phencyclidine or other cross-reacting compounds are reported as positive. False positive and false negative results are possible. Confirmatory testing required for definitive results. Current Interpretive Data was last reviewed 2022. Testing performed by: [address] [address] Urine Creatinine 45 mg/dL J[facility]NIOR Comment: Interpretive Data Urine Creatinine: < 10 mg/dL is extremely dilute = or > 10 but < 20 mg/dL is dilute = or > 20 mg/dL is normal Current Interpretive Data was last revised on 2017. Testing performed by: [address] [address] Urine 10/14/2024 5:31 AM CDT 10/14/2024 5:36 AM CDT Narrative [facility] - 10/14/2024 6:04 AM CDT Drug of Abuse screening is performed by immunoassay for medical purposes only. This is not to be used for Pain Management purposes. us Yan Palma Jr., MD LAB URINE ORDERABLES nal Result [facility] [address] [facility] Department [place] [address] * (ABNORMAL) Troponin T high-sensitivity 2-hour (10/14/2024 5:19 AM CDT) Trop T hs 27(H) <=22 ng/L Comment: Interpretive Data For further hscTnT resources including the diagnostic algorithm and an aid in interpretation, copy and paste this link: https://nrl.testcatalog.org/show/hsTrop Current Interpretive Data last revised 2020. Testing performed by: [address] [address] Trop T hs delta 0 ng/L J[facility]OR Comment:Testing performed by : [address] [address] Trop T hs interp Insignificant J[facility]NIOR Comment:Testing performed by : [address] [address] Blood 10/14/2024 5:19 AM CDT 10/14/2024 5:29 AM CDT Yan Palma Jr., MD LAB BLOOD ORDERABLES Fi nal Result Performing Organization Address [facility] de Phone Number [address]ATH[address] [place] [address] * (ABNORMAL) Ethanol (10/14/2024 4:35 AM CDT) Ethanol 58(H) <=10 mg/dL Comment: Interpretive Data Legal limit of intoxication > or = 80 mg/dL Levels > or = 400 mg/dL are potentially TOXIC. Current interpretive data was last revised on 2018. Testing performed by: [address] [address] Blood 10/14/2024 4:35 AM CDT 10/14/2024 4:38 AM CDT us Yan Palma Jr., MD LAB BLOOD ORDERABLES Fi nal Result Performing Organization Address [facility] de Phone Number KATH[address] [place] [address] * XR Chest 1 Vw Portable (if patient condition/safety warrant portable) (10/14/2024 3:46 AM CDT) Anatomical Region Laterality Modality Body, Chest N/A Computed Radiogr aphy 10/14/2024 3:51 AM CDT Narrative 10/14/2024 3:52 AM CDT EXAM DESCRIPTION: XR CHEST 1 VIEW REASON FOR STUDY: chest pain Pt to ED via EMS from [facility] with c/o chest pain tonight TECHNIQUE: Portable [...] Justin Benson M.D. AR: CIERA Report ID: [id number] Reading Location: [id number] Procedure Note Justin Benson MD - 10/14/2024 EXAM DESCRIPTION: XR CHEST 1 VIEW REASON FOR STUDY: chest pain Pt to ED via EMS from [facility] with c/o chest pain tonight TECHNIQUE: Portable [...] Justin Benson M.D. AR: CIERA Report ID: [id number] Reading Location: [id number] Yan Palma Jr., MD IMG XR PROCEDURES Final Result * ECG 12 lead (10/14/2024 3:06 AM CDT) Ventricular Rate EKG/Min 85 BPM [facility] Atrial Rate 85 BPM [facility] MA-Interval (MSEC) 142 ms [facility] QRS-Interval (MSEC) 158 ms [facility] QT-Interval (MSEC) 436 ms [facility] QTc 518 ms [facility] P [place] 54 degrees [facility] R [place] -47 degrees [facility] T [place] 128 degrees [facility] Diagnosis Normal sinus rhythm Possible Left atrial enlargement Left axis deviation Left bundle branch block Abnormal ECG When compared with ECG of 13-SEP-2024 08:51, No significant change was found Confirmed by SULTAN ESPINOZA M.D. ([id number]) on 10/14/2024 2:35:55 PM [facility] 10/14/2024 3:06 AM CDT 10/14/2024 2:35 PM CDT us Yan Palma Jr., MD ECG ORDERABLES Final R esult Performing Organization Address [facility] Co de Phone Number [facility] * (ABNORMAL) Troponin T high-sensitivity series (baseline, 2hr, 4hr, 6hr) (10/14/2024 3:04 AM CDT) Pathologist [facility] Trop T hs 27(H) <=22 ng/L Comment: Interpretive Data For further hscTnT resources including the diagnostic algorithm and an aid in interpretation, copy and paste this link: https://nrl.testcatalog.org/show/hsTrop Current Interpretive Data last revised 2020. Testing performed by: [facility], [address] [place] [address]., [address] Blood 10/14/2024 3:04 AM CDT 10/14/2024 3:52 AM CDT us Yan Palma Jr., MD LAB BLOOD ORDERABLES Fi nal Result Performing Organization Address City/[facility]/ZIP Co de Phone Number JÚNIOR [address] [facility] Department [place] [address] * eGFR (10/14/2024 3:04 AM CDT) Pathologist [facility] eGFR 87 >=60 mL/min/1. 73 m2 Comment: [...] was last reviewed 2021. Testing performed by: [address] [address] Blood 10/14/2024 3:04 AM CDT 10/14/2024 3:52 AM CDT us Yan Palma Jr., MD LAB BLOOD ORDERABLES Fi nal Result [facility] [address] [facility] Department [place] [address] * Differential, auto (10/14/2024 3:04 AM CDT) Neutrophil abs 1.85 1.50 - 6.50 K/cumm Comment:Testing performed by : [address] [address] Imm gran abs 0.02 0.00 - 0.10 K/cumm JÚNIOR Comment:Testing performed by : [address] [address] Lymphocyte abs 2.61 0.80 - 3.30 K/cumm JÚNIOR Comment:Testing performed by : [address] [address] Monocyte abs 0.73 0.20 - 0.80 K/cumm JÚNIOR Comment:Testing performed by : [address] [address] Eosinophil abs 0.19 0.00 - 0.50 K/cumm [facility] Comment:Testing performed by : [address], [place]., [address] Basophil abs 0.07 0.00 - 0.10 K/cumm [facility] Comment:Testing performed by : [address] [address] Neutrophil pct 33.8 % [facility] Comment: Interpretive Data Percent cell count reference ranges are not reported, since discordance with absolute values may lead to misinterpretation of CBC data. Current Interpretive Data was last revised on 2017. Testing performed by: [address] [address] Imm gran pct 0.4 % [facility] Comment: Interpretive Data Percent cell count reference ranges are not reported, since discordance with absolute values may lead to misinterpretation of CBC data. Current Interpretive Data was last revised on 2017. Testing performed by: [address] [address] Lymphocyte pct 47.7 % [facility] Comment: Interpretive Data Percent cell count reference ranges are not reported, since discordance with absolute values may lead to misinterpretation of CBC data. Current Interpretive Data was last revised on 2017. Testing performed by: [address] [address] Monocyte pct 13.3 % [facility] Comment: Interpretive Data Percent cell count reference ranges are not reported, since discordance with absolute values may lead to misinterpretation of CBC data. Current Interpretive Data was last revised on 2017. Testing performed by: [address] [address] Eosinophil pct 3.5 % [facility] Comment: Interpretive Data Percent cell count reference ranges are not reported, since discordance with absolute values may lead to misinterpretation of CBC data. Current Interpretive Data was last revised on 2017. Testing performed by: [address] [address] Basophil pct 1.3 % [facility] Comment: Interpretive Data Percent cell count reference ranges are not reported, since discordance with absolute values may lead to misinterpretation of CBC data. Current Interpretive Data was last revised on 2017. Testing performed by: [address] [address] Blood 10/14/2024 3:04 AM CDT 10/14/2024 3:52 AM CDT us Yan Palma Jr., MD LAB BLOOD ORDERABLES Fi nal Result [facility] [address] [facility] Department [place] [address] * (ABNORMAL) CBC with auto differential (10/14/2024 3:04 AM CDT) WBC 5.47 3.80 - 9.90 K/cumm Comment:Testing performed by : [address] [address] Hgb 12.4(L) 13.0 - 17.5 g/dL JÚNIOR Comment:Testing performed by : [address] [address] Hct 38.3(L) 38.9 - 50.3 % JÚNIOR Comment:Testing performed by : [address] [address] Plt 237 150 - 400 K/cumm JÚNIOR Comment:Testing performed by : [address] [address] MPV 9.7 9.1 - 12.3 fL JÚNIOR Comment:Testing performed by : [address] [address] RBC 4.69 4.30 - 5.80 M/cumm JÚNIOR Comment:Testing performed by : [address] [address] MCV 81.7 81.3 - 96.4 fL JÚNIOR Comment:Testing performed by : [address] [address] MCH 26.4(L) 27.1 - 33.3 pg JÚNIOR Comment:Testing performed by : [address] [place]., [address] MCHC 32.4 32.3 - 35.7 g/dL JÚNIOR CONLEY Comment:Testing performed by : [address] [address] RDW CV 16.2(H) 11.1 - 14.9 % JÚNIOR [place] Comment:Testing performed by : [address] [address] RDW SD 47.9 35.7 - 48.1 fL JÚNIOR [place] Comment:Testing performed by : [address] [address] NRBC abs 0.00 0.00 - 0.01 K/cumm JÚNIOR [place] Comment:Testing performed by : [address] [address] Blood Venous blood specimen / Unknown 10/14/2024 3:04 AM CDT 10/14/2024 3:52 AM CDT Yan Palma Jr., MD LAB BLOOD ORDERABLES nal Result JÚNIOR [facility] Department [place] [address] * Acetaminophen level (10/14/2024 3:04 AM CDT) [...] after ingestion Consult toxicology or poison control ([phone]) for unknown ingestion time. Current interpretive data was last revised 2023. Testing performed by: [address] [address] Blood 10/14/2024 3:04 AM CDT 10/14/2024 3:52 AM CDT us Yan Palma Jr., MD LAB BLOOD ORDERABLES Fi nal Result Performing Organization Address [facility] de Phone Number [address]ATH[address] [address] * Salicylate level (10/14/2024 3:04 AM CDT) Pathologist [facility] Salicylate <1.0 <=1.0 mg/dL Comment: Interpretive Data Toxic: 30 mg/dL or greater. Current interpretive data was last revised 2023. Testing performed by: [address] [address] Blood 10/14/2024 3:04 AM CDT 10/14/2024 3:52 AM CDT Yan Palma Jr., MD LAB BLOOD ORDERABLES Fi nal Result Performing Organization Address [facility] de Phone Number KATHY[address] [place] [address] * Comprehensive metabolic panel (10/14/2024 3:04 AM CDT) [facility] Sodium 135 135 - 145 mmol/L Comment:Testing performed by : [address] [address] Potassium, pl 3.9 3.3 - 4.9 mmol/L JÚNIOR Comment: Hemolyzed; Potassium value may be falsely elevated by as much as 1.0 mmol/L. Suggest redraw and reanalysis. Testing performed by: [address] [address] Chloride 98 97 - 110 mmol/L JÚNIOR Comment:Testing performed by : [address] [address] CO2 24 22 - 32 mmol/L JÚNIOR Comment:Testing performed by : [address] [address] Anion gap 13 2 - 15 mmol/L JÚNIOR Comment:Testing performed by : [address] [address] BUN 9 6 - 25 mg/dL JÚNIOR Comment:Testing performed by : [address] [address] Creatinine 1.00 0.80 - 1.30 mg/dL JÚNIOR Comment:Testing performed by : [address] [address] Glucose 141 70 - 199 mg/dL JÚNIOR [...] classification and Diagnosis of Diabetes Diabetes Care 2021; 46: S19-S40. Current interpretive data was last revised 2022. Testing performed by: [address] [address] Calcium 9.3 8.5 - 10.3 mg/dL JÚNIOR Comment:Testing performed by : [address] [address] Bilirubin, total 0.3 0.1 - 1.2 mg/dL JÚNIOR Comment:Testing performed by : [address] [address] Protein, pl 8.0 6.5 - 8.5 g/dL JÚNIOR Comment:Testing performed by : [address] [address] Albumin 4.2 3.5 - 5.0 g/dL [facility] Comment:Testing performed by : [address] [address] Alk phos 57 40 - 130 Units/L JÚNIOR Comment:Testing performed by : [address] [address] ALT 17 7 - 55 Units/L JÚNIOR Comment:Testing performed by : [address] [address] AST 30 10 - 50 Units/L JÚNIOR Comment: Hemolyzed; result may be falsely elevated Testing performed by: [facility], [address] [place] [address], [place]., [address] Blood 10/14/2024 3:04 AM CDT 10/14/2024 3:52 AM CDT us Yan Palma Jr., MD LAB BLOOD ORDERABLES Fi nal Result Performing Organization Address City/[facility]/ZIP Co de Phone Number JÚNIOR [facility] Department [place] [address] * (ABNORMAL) POCT glucose (10/03/2024 11:10 AM CDT) Glucose, POC 335(H) 70 - 199 mg/dL Blood 10/03/2024 11:1 0 AM CDT 10/03/2024 11:10 AM CDT us Marley Mckeon MD LAB POCT ORDERABLES - DEVICE Final Result Performing Organization Address [facility] Co de [facility] Number [facility] [place] [address] * (ABNORMAL) POCT glucose (10/02/2024 7:57 PM CDT) Glucose, POC 259(H) 70 - 199 mg/dL Blood 10/02/2024 7:57 PM CDT 10/02/2024 7:57 PM CDT us Charlene Rocha MD LAB POCT ORDERABLES - DEVICE Fin al Result Performing Organization Address [facility] Co de [facility] [place] [address] * (ABNORMAL) POCT glucose (10/02/2024 5:02 PM CDT) Glucose, POC 367(H) 70 - 199 mg/dL Blood 10/02/2024 5:0 2 PM CDT 10/02/2024 5:02 PM CDT Charlene Rocha MD LAB POCT ORDERABLES - DEVICE Fin al Result Performing Organization Address [facility] Co de Phone Number [facility] [place] [address] * (ABNORMAL) POCT glucose (10/02/2024 11:23 AM CDT) Glucose, POC 218(H) 70 - 199 mg/dL Blood 10/02/2024 11:2 3 AM CDT 10/02/2024 11:23 AM CDT us Neli Jameson MD LAB POCT ORDERABLES - DEVICE Final Result Performing Organization Address [facility] de Phone Number [facility] [place] [address] * POCT glucose (10/02/2024 7:01 AM CDT) Glucose, POC 172 70 - 199 mg/dL Blood 10/02/2024 7:01 AM CDT 10/02/2024 7:01 AM CDT us Neli Jameson MD LAB POCT ORDERABLES - DEVICE Final Result Performing Organization Address [facility] [place] [address] * (ABNORMAL) POCT glucose (10/01/2024 7:48 PM CDT) Glucose, POC 343(H) 70 - 199 mg/dL Blood 10/01/2024 7:48 PM CDT 10/01/2024 7:48 PM CDT Neli Jameson MD LAB POCT ORDERABLES - DEVICE Final Result Performing Organization Address [facility] Co de Phone Number [facility] [place] [address] * (ABNORMAL) POCT glucose (10/01/2024 5:40 PM CDT) Glucose, POC 319(H) 70 - 199 mg/dL Blood 10/01/2024 5:40 PM CDT 10/01/2024 5:40 PM CDT us Neli Jameson MD LAB POCT ORDERABLES - DEVICE Final Result Performing Organization Address [facility] Co de Phone Number JÚNIOR [facility] [place] [address] * Ethanol (10/01/2024 5:32 AM CDT) Ethanol <10 <=10 mg/dL Comment: Interpretive Data Legal limit of intoxication > or = 80 mg/dL Levels > or = 400 mg/dL are potentially TOXIC. Current interpretive data was last revised on 2018. Blood 10/01/2024 5:32 AM CDT 10/01/2024 5:35 AM CDT us Yash GREEN LAB BLOOD ORDERABLES Final R esult Performing Organization Address [facility] Co de Phone Number JÚNIOR [facility] Department [place] [address] * Acetaminophen level (10/01/2024 5:32 AM CDT) [...] after ingestion Consult toxicology or poison control ([phone]) for unknown ingestion time. Current interpretive data was last revised 2023. Blood 10/01/2024 5:32 AM CDT 10/01/2024 5:35 AM CDT Yash Cramer PA LAB BLOOD ORDERABLES Final R esult [address] [address] * POCT glucose (10/01/2024 5:31 AM CDT) Glucose, POC 188 70 - 199 mg/dL Blood 10/01/2024 5:31 AM CDT 10/01/2024 5:31 AM CDT us Notinfile Unknown LAB POCT ORDERABLES - DEVICE F inal Result Performing Organization Address [facility] Co de Phone Number [address] [address] * Urinalysis reflex to microscopic and culture Urine (09/30/2024 9:54 AM CDT) Color, ur Yellow Yellow Clarity, ur Clear Clear [facility] Specific gravity, ur 1.010 1.003 - 1.030 [facility] pH, urine 5.5 [facility] Comment: Interpretive Data U rine pH is affected by diet, medications, systemic acid-base disturbances, and renal tubular function. pH may affect urinary stone formation. For example, urine pH below 6.0 may help reduce the tendency for calcium phosphate stones and pH greater than 6.0 may reduce the tendency for uric acid stone formation. Source: [facility] Current Interpretive Data was last revised on 2017 Protein, ur ql Negative Negative [facility] Glucose, ur ql Negative Negative [facility] Ketones, ur Negative Negative [facility] Bilirubin, ur Negative Negative [facility] Blood, ur Negative Negative [facility] Urobilinogen, ur <2.0 <2.0 mg/dL [facility] Nitrite, ur Negative Negative [facility] Leukocyte esterase, ur Negative Negative [facility] UA reflex comment Reflex conditions for microscopic UA and culture not met. [facility] Urine 09/30/2024 9:54 AM CDT 09/30/2024 9:57 AM CDT Bettina Rubin DO LAB MICROBIOLOGY - GENERAL AILEEN FENG Final Result JÚNIOR [address] [facility] Department [place] [address] * (ABNORMAL) Drugs of Abuse Screen, Urine [...] 2022. Barbiturates, ur Not Detected CutOff 200ng/mL [facility] Comment: Interpretive Data - Barbiturates: Samples containing greater than 200 ng/mL secobarbital or other cross-reacting barbiturate compounds are reported as positive. False positive and false negative results are possible. Confirmatory testing required for definitive results. Current Interpretive Data was last reviewed 2022. Benzodiazepines, ur Not Detected CutOff 100ng/mL [facility] Comment: Interpretive Data - Benzodiazepines: Samples containing greater than 100 ng/mL nordiazepam or other cross-reacting compounds are reported as positive. False positive and false negative results are possible. Confirmatory testing required for definitive results. Current Interpretive Data was last reviewed 2022. Cannabinoids, ur Not Detected CutOff 50 ng/mL [facility] Comment: Interpretive Data - Cannabinoids: Samples containing greater than 50 ng/mL delta-9 THC -COOH or other cross- reacting compounds are reported as positive. False positive and false negative results are possible. Confirmatory testing required for definitive results. Current Interpretive Data was last reviewed 2022. Cocaine, ur Screen Positive, presumptive (A) CutOff 150ng/mL [facility] Comment: Interpretive Data - Cocaine: Samples containing greater than 150 ng/mL benzoylecgonine or other cross- reacting compounds are reported as positive. False positive and false negative results are possible. Confirmatory testing required for definitive results. Current Interpretive Data was last reviewed 2022. Fentanyl, Ur Not Detected CutOff 5 ng/mL JÚNIOR Comment: Interpretive Data - Fentanyl: Samples containing greater than 5 ng/mL norfentanyl, fentanyl, or other cross-reacting fentanyl compounds are reported as positive. False positive and false negative results are possible. Confirmatory testing required for definitive results. Current Interpretive Data was last reviewed 2023. Methadone, ur Not Detected CutOff 300ng/mL [facility] Comment: Interpretive Data - Methadone: Samples containing [...] 2022. Oxycodone, ur Not Detected CutOff 100ng/mL [facility] Comment: Interpretive Data - Oxycodone: Samples containing greater than 100 ng/mL oxycodone or other cross-reacting compounds are reported as positive. False positive and false negative results are possible. Confirmatory testing required for definitive results. Current Interpretive Data was last reviewed 2022. Phencyclidine, ur Not Detected CutOff 25 ng/mL [facility] Comment: Interpretive Data - Phencyclidine: Samples containing greater than 25 ng/mL phencyclidine or other cross-reacting compounds are reported as positive. False positive and false negative results are possible. Confirmatory testing required for definitive results. Current Interpretive Data was last reviewed 2022. Urine Creatinine 114 mg/dL JÚNIOR Comment: Interpretive Data Urine Creatinine: [...] be used for Pain Management purposes. us Bettina Rubin DO LAB URINE ORDERABLES Final Resu lt JÚNIOR [address] [facility] Department [place] [address] * COVID-19 Coronavirus RNA Nasopharyngeal (09/30/2024 2:34 AM CDT) COVID-19 RNA Negative Negative Nasopharyngeal 09/30/2024 2: 34 AM CDT 09/30/2024 2:43 AM CDT Narrative JÚNIOR - 09/30/2024 3:16 AM CDT Is the patient experiencing any symptoms consistent with COVID (eg. Fever, cough, shortness of breath)?->No What is the reason for testing?->Screening prior to Behavioral health admission Interpretive data Testing performed by [facility]. This test is performed using the [employer] Xpert Xpress CoV-2 plus assay. This is a real-time RT-PCR test intended for the qualitative detection of nucleic acid from the SARS-CoV-2. This assay has been cleared by the [place] Food and Drug administration. The performance characteristics have been verified by the [facility]. Results must be considered in the clinical context, and a negative result does not rule out infection. Interpretive data last revised 2023. Interpretive data Testing performed by [facility]. This test is performed using the [employer] Xpert Xpress CoV-2 plus assay. This is a real-time RT-PCR test intended for the qualitative detection of nucleic acid from the SARS-CoV-2. This assay has been cleared by the [place] Food and Drug administration. The performance characteristics have been verified by the [facility]. Results must be considered in the clinical context, and a negative result does not rule out infection. Interpretive data last revised 2023. us Bettina Rubin DO LAB MICROBIOLOGY - GENERAL ORDE RABLES Final Result Performing Organization Address City/[facility]/ZIP Co de Phone Number JÚNIOR [address] [address] * eGFR (09/30/2024 2:34 AM CDT) Pathologist [facility] eGFR >90 >=60 mL/min/1. 73 m2 Comment: [...] ORDERABLES Final Resu lt Performing Organization Address City/[facility]/ZIP Co de Phone Number JÚNIOR [address] [place] [address] * (ABNORMAL) Differential, auto (09/30/2024 2:34 AM CDT) Pathologist [facility] Neutrophil abs 2.01 1.50 - 6.50 K/cumm Imm gran abs 0.01 0.00 - 0.10 K/cumm [facility] Lymphocyte abs 3.31(H) 0.80 - 3.30 K/cumm [facility] Monocyte abs 0.33 0.20 - 0.80 K/cumm [facility] Eosinophil abs 0.35 0.00 - 0.50 K/cumm [facility] Basophil abs 0.06 0.00 - 0.10 K/cumm [facility] Neutrophil pct 33.1 % [facility] Comment: Interpretive Data Percent cell count reference ranges are not reported, since discordance with absolute values may lead to misinterpretation of CBC data. Current Interpretive Data was last revised on 2017. Imm gran pct 0.2 % [facility] Comment: Interpretive Data Percent cell count reference ranges are not reported, since discordance with absolute values may lead to misinterpretation of CBC data. Current Interpretive Data was last revised on 2017. Lymphocyte pct 54.5 % [facility] Comment: Interpretive Data Percent cell count reference ranges are not reported, since discordance with absolute values may lead to misinterpretation of CBC data. Current Interpretive Data was last revised on 2017. Monocyte pct 5.4 % [facility] Comment: Interpretive Data Percent cell count reference ranges are not reported, since discordance with absolute values may lead to misinterpretation of CBC data. Current Interpretive Data was last revised on 2017. Eosinophil pct 5.8 % [facility] Comment: Interpretive Data Percent cell count reference ranges are not reported, since discordance with absolute values may lead to misinterpretation of CBC data. Current Interpretive Data was last revised on 2017. Basophil pct 1.0 % [facility] Comment: Interpretive Data Percent cell count reference ranges are not reported, since discordance with absolute values may lead to misinterpretation of CBC data. Current Interpretive Data was last revised on 2017. Blood 09/30/2024 2:34 AM CDT 09/30/2024 2:43 AM CDT us Bettina Rubin DO LAB BLOOD ORDERABLES Final Resu lt JÚNIOR CONLEY [address] [facility] Department [place] [address] * Thyroid Function [place] (09/30/2024 2:34 AM CDT) TSH 0.68 0.30 - 4.20 mcIUnit/mL Blood 09/30/2024 2:34 AM CDT 09/30/2024 2:42 AM CDT Bettina Rubin LAB BLOOD ORDERABLES Final Resu lt Performing Organization Address [facility] Co de Phone Number JÚNIOR [address] [place] [address] * (ABNORMAL) CBC with auto differential (09/30/2024 2:34 AM CDT) WBC 6.07 3.80 - 9.90 K/cumm Hgb 11.9(L) 13.0 - 17.5 g/dL [facility] Hct 37.2(L) 38.9 - 50.3 % [facility] Plt 268 150 - 400 K/cumm [facility] MPV 9.2 9.1 - 12.3 fL [facility] RBC 4.56 4.30 - 5.80 M/cumm [facility] MCV 81.6 81.3 - 96.4 fL [facility] MCH 26.1(L) 27.1 - 33.3 pg [facility] MCHC 32.0(L) 32.3 - 35.7 g/dL [facility] RDW CV 16.8(H) 11.1 - 14.9 % [facility] RDW SD 49.9(H) 35.7 - 48.1 fL [facility] NRBC abs 0.00 0.00 - 0.01 K/cumm [facility] Blood Venous blood specimen / Unknown 09/30/2024 2:34 AM CDT 09/30/2024 2:43 AM CDT Bettina Rubin LAB BLOOD ORDERABLES Final Resu lt Performing Organization Address City/[facility]/ZIP Co de Phone Number JÚNIOR [address] [place] [address] * (ABNORMAL) Ethanol (09/30/2024 2:34 AM CDT) Ethanol 144(H) <=10 mg/dL Comment: Interpretive Data Legal limit of intoxication > or = 80 mg/dL Levels > or = 400 mg/dL are potentially TOXIC. Current interpretive data was last revised on 2018. Blood 09/30/2024 2:34 AM CDT 09/30/2024 2:42 AM CDT us Bettina Rubin DO LAB BLOOD ORDERABLES Final Resu lt [facility] [address] [facility] Department [place] [address] * (ABNORMAL) Comprehensive metabolic panel (09/30/2024 2:34 AM CDT) Sodium 138 135 - 145 mmol/L Potassium, pl 3.6 3.3 - 4.9 mmol/L [facility] Chloride 105 97 - 110 mmol/L [facility] CO2 19(L) 22 - 32 mmol/L [facility] Anion gap 14 2 - 15 mmol/L [facility] BUN 9 6 - 25 mg/dL [facility] Creatinine 0.90 0.80 - 1.30 mg/dL [facility] Glucose 262(H) 70 - 199 mg/dL [facility] Comment: Interpretive Data Fasting glucose >/= 126 [...] 2022. Calcium 8.7 8.5 - 10.3 mg/dL [facility] Bilirubin, total 0.2 0.1 - 1.2 mg/dL [facility] Protein, pl 7.1 6.5 - 8.5 g/dL [facility] Albumin 3.8 3.5 - 5.0 g/dL [facility] Alk phos 63 40 - 130 Units/L [facility] ALT 18 7 - 55 Units/L [facility] AST 30 10 - 50 Units/L [facility] Blood 09/30/2024 2:34 AM CDT 09/30/2024 2:42 AM CDT us Bettina Rubin DO LAB BLOOD ORDERABLES Final Resu lt JÚNIOR [address] [facility] Department [place] [address] * (ABNORMAL) Lipid panel (09/14/2024 2:50 AM [...] revised on 2018. Triglycerides 597(H) <=149 mg/dL JÚNIOR Comment: Interpretive Data Ages < or = [...] on 2018. HDL 28(L) >=40 mg/dL JÚNIOR Comment: Interpretive Data Ages < or = [...] 3. Shay Dobbs et al. LYRIC Cardiol. 2019September 25;5(5):540-548. doi: [email or web address] Current Interpretive Data was [...] revised on 2018. Chol/HDL ratio 4 JÚNIOR CONLEY Blood 09/14/2024 2:50 AM CDT 09/14/2024 3:06 AM CDT Suni Irais Lynch OPTICAL INSTRUMENT INSPECTOR LAB BLOOD ORDERABLES Final Result Performing Organization Address [facility] de Phone Number JÚNIOR [facility] [place] [address] * (ABNORMAL) Hemoglobin A1c (09/13/2024 2:57 PM CDT) Hgb A1C 8.4(H) 4.0 - 5.6 % Estimated Average Glucose 194 mg/dL JÚNIOR Comment: The ADA recommends reporting an estimated Average Glucose (eAG) with all Hemoglobin A1c results using the equation derived from a study of 507 normal and diabetic adults. Minority populations were underrepresented and children were not included. (Diabetes Care 31:9930-5693, 2008). The eAG is not equivalent to a fasting glucose. 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
--- OUTSIDE RECORDS SUMMARY | 2024-12-28 18:27 | XMS_ITS | Clinical Summary ---
Author Organization [facility] Address [address] [place] [address] Phone Care Team Providers Care Contact Lens Polisher Name Role Phone Ghanshyam Alfaro MD Primary Care Provider Allergies Active Allergy Reactions Criticality Noted Date Comments Codeine Unknown Low 03/27/2019 Cyclobenzaprine Other (see Comments) Low 11/27/2018 makes me feel some type of way... Uncomfortable. Tramadol Unknown Low 03/27/2019 Medications albuterol 108 (90 Base) MCG/ACT Aerosol SolutionIndicat ions:Asthma take 2 Puffs by inhalation every 6 hours as needed for Wheezing. 9 Active allopurinol (ZYLOPRIM) 100 MG TabletIndicatio ns:Primary Gout Take 100 mg by mouth 3 times daily. Active amLODIPine (NORVASC) 10 MG TabletIndicatio ns:Hypertension Take 10 mg by mouth daily. Active Aspirin 81 MG TabletIndicatio ns:CVA Take 81 mg by mouth daily. Active atorvastatin (LIPITOR) 40 MG TabletIndicatio ns:Hyperlipidem ia Take 40 mg by mouth daily. Active folic acid (FOLVITE) 1 MG TabletIndicatio ns:vit defeciency Take 1 mg by mouth daily. Active gabapentin (NEURONTIN) 800 MG TabletIndicatio ns:Neuropathic Pain Take 800 mg by mouth 3 times daily. 9 Active glipiZIDE (GLUCOTROL) 10 MG TabletIndicatio ns:Type 2 Diabetes Mellitus Take 10 mg by mouth daily. Active lisinopril (PRINIVIL, ZESTRIL) 40 MG TabletIndicatio ns:Hypertension Take 40 mg by mouth daily. Active metFORMIN (GLUCOPHAGE) 1000 MG TabletIndicatio ns:Type 2 Diabetes Mellitus Take 1,000 mg by mouth 2 times daily. 9 Active insulin glargine (BASAGLAR KWIKPEN) 100 UNIT/ML Solution Pen-injectorInd ications:Type 2 Diabetes Mellitus 10 Units by Subcutaneous route nightly. Active fluticasone (FLONASE) 50 MCG/ACT SuspensionIndic ations:Nasal Signs and Symptoms 1-2 Sprays by Nasal route daily. Use in each nostril as directed. Active traZODone (DESYREL) 100 MG TabletIndicatio ns:Insomnia Take 1 Tab by mouth nightly. Indications: Trouble Sleeping 7 Tab 3 9 Active nicotine polacrilex (NICORETTE) 2 MG GumIndications: Nicotine Dependence Take 1 Each by mouth as needed for Smoking cessation. Indications: Nicotine Addiction 0 9 Active polyethylene glycol (GLYCOLAX, MIRALAX) Pack Take 1 Packet by mouth daily as needed for Constipation. Dissolve in 4-8 oz of liquid. 90 Packet 9 Active desmopressin (DDAVP) 0.2 MG Tablet Take 1 Tab by mouth nightly. Limit intake of liquids after the evening meal. 90 Tab 0 Active Active Problems Problem Noted Date Diagnosed Date Bipolar disorder, current ep isode depressed, severe, without psychotic features 11/12/2023 Bipolar disorder, unspecified 11/12/2023 Schizophrenia 04/16/2019 Atypical chest pain 04/16/2019 Anemia 04/16/2019 Type 2 diabetes mellitus with insulin therapy Suicidal ideation 03/27/2019 Cocaine abuse 03/27/2019 Uncontrolled type 2 diabetes mellitus with hyper glycemia 03/27/2019 CKD (chronic kidney disease) stage 3, GFR 30-59 ml/min 03/27/2019 Proteinuria 03/27/2019 Hypertension 03/27/2019 Social History Tobacco Use Types Packs/Day Years Used Date Smoking Tobacco: Every Day Cigarettes Smokeless Tobacco: Never Tobacco Cessation:Ready to Q uit: Not Asked; Counseling Given: Not Answered Alcohol Use Standard Drinks/Week Comments Yes 6 (1 standard drink = 0.6 oz pur e alcohol) 6 pk 1-2 weeks [facility] Utilities Answer Date Recorded In the past 12 months has th e electric, gas, oil, or water company threatened to shut off services in your home? Patient declined 11/12/2023 Social Connection and Isolation Panel Answer Date Recorded In a typical week, how many times do you talk on the phone with family, friends, or neighbors? Patient declined 11/12/2023 How often do you get togethe r with friends or relatives? Patient declined 11/12/2023 How often do you attend shinto or lutheran serv ices? Patient declined 11/12/2023 Do you belong to any clubs o r organizations such as shinto groups, unions, fraternal or athletic groups, or school groups? Patient declined 11/12/2023 How often do you attend meet ings of the clubs or organizations you belong to? Patient declined 11/12/2023 Are you , , di vorced, , never , or living with a partner? Patient declined 11/12/2023 AUDIT-C Answer Date Recorded Frequency of Alcohol Consumption Not on file 11/12/2023 Q2: How many drinks containi ng alcohol do you have on a typical day when you are drinking? Patient declined 11/12/2023 Q3: How often do you have si x or more drinks on one occasion? Patient declined 11/12/2023 Overall Financial Resource Strain (CARDIA) Answe r Date Recorded How hard is it for you to pa y for the very basics like food, housing, medical care, and heating? Patient declined 11/12/2023 [facility] - Occupational Stress Questionnaire Answer Date Recorded Do you feel stress - tense, restless, nervous, or anxious, or unable to sleep at night because your mind is troubled all the time - these days? Patient declined 11/12/2023 Exercise Vital Sign Answer Date Recorde d On average, how many days pe r week do you engage in moderate to strenuous exercise (like a brisk walk)? Patient declined On average, how many minutes do you engage in exercise at this level? Patient declined 11/12/2023 Hunger Vital Sign Answer Date Recorded Within [...] appointments or from getting medications? Patient declined 11/12/2023 In the past 12 months, has l ack of transportation kept you from meetings, work, or from getting things needed for daily living? Patient declined 11/12/2023 Housing Stability Vital Sign Answer Ko e Recorded In the last 12 months, was t here a time when you were not able to pay the mortgage or rent on time? Patient declined 11/12/19 24 In the past 12 months, how m any times have you moved where you were living? 1 11/12/2023 At any time in the past 12 m [facility], were you homeless or living in a senior care (including now)? 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 Gender Identity Not on file Sexual Orientation Not on file Occupation Industry Job Start Date Job End Date Not on file Not on file Not on file Not on file Last Filed Vital Signs Vital Sign Reading Time Taken Comments Blood Pressure 163/89 11/14/2023 7:00 AM CDT Pulse 60 11/14/2023 7:00 AM CDT Temperature 36.1 C (96.9 F) 11/14/2023 7:00 AM CDT Respiratory Rate 16 11/14/2023 7:00 AM CDT Oxygen Saturation 96% 11/14/2023 7:00 AM CDT Inhaled Oxygen Concentration - - Weight 77.1 kg (170 lb) 11/12/2023 10:48 PM CDT Height 175.3 cm (5' 9) 11/12/2023 10:48 PM CDT Body Mass Index 25.1 11/12/2023 10:48 PM CDT Plan of Treatment Health Maintenance Due Date Last Done Comments Diabetes: Eye Exam 1966 Diabetes: Foot Exam 1966 Hepatitis C Virus (HCV) Screening 1966 Hepatitis B Immunization (1 of 3 - 19+ 3-dose series) 1985 Cologuard 2011 Colonoscopy 2011 Colorectal Cancer Screening 2011 Immunochemical Fecal Occult Blood 2011 Zoster Immunization (1 of 2) 2016 Pneumococcal Immunization (50+ years) (2 of 2 - PCV) 01/19/2021 01/20/2020 PSA Discussion 2021 Diabetes: Hemoglobin A1c 12/26/2023 024, 06/08/2022, 04/21/2022, Additional history exists SARS-COV-2 Immunization ( - ) 01/27/2024 05/03/2021 Diabetes: Nephropathy Screening 11/10/2024 11/11/2023, 12/30/2022, 12/16/2019, Additional history exists Influenza Immunization (#1) 2025 02/07/2020, 0 02/07/2020 Respiratory Syncytial Virus (RSV) Immunization (Adult) (1 - 1-dose 75+ series) 2041 Pneumococcal Immunization Combined Discontinued 01/20/2020 DTaP/Tdap/Td Immunization Discontinued 01/16/2023, TdaP Immunization Completed 01/16/2023, 09/19/2020 Human Papillomavirus (HPV) Immunization Aged Out No longer eligible based on patient's age to complete this topic Meningococcal Immunization (ACWY) Aged Out No longer eligible based on patient's age to complete this topic Rotavirus Immunization Aged Out No lo nger eligible based on patient's age to complete this topic Procedures Procedure Name Priority Date/Time Associated Diagnosis Comments CMP (COMPREHENSIVE METABOLIC PANEL) STAT 11/11/2023 1:33 PM CDT HEMOGLOBIN A1C W/ ESTIMATED GLUCOSE Routine 03/28/2019 5:21 AM CDT from Last 3 Months or Most Recently Relevant to Health Maintenance Results * (ABNORMAL) CMP (Comprehensive Metabolic Panel) (11/11/2023 1:33 PM CDT) SODIUM 138 136 - 145 mmol/L 11/11/2023 2:11 PM CDT [facility] POTASSIUM 4.0 3.5 - 5.1 mmol/L 11/11/2023 2:11 PM CDT [facility] CHLORIDE 103 98 - 107 mmol/L 11/11/2023 2:11 PM CDT [facility] CO2, VENOUS 25 22 - 30 mmol/L 11/11/2023 2:11 PM CDT [facility] ANION GAP 14.0 <18.0 mmol/L 11/11/2023 2:11 PM CDT [facility] GLUCOSE 187(H) 70 - 99 mg/dL 11/11/2023 2:11 PM CDT [facility] BUN 22 8 - 26 mg/dL 11/11/2023 2:11 PM CDT [facility] CREATININE, BLOOD 1.21 0.70 - 1.30 mg/dL 11/11/2023 2:11 PM CDT [facility] BUN/CREATININE RATIO 18 12 - 20 ratio 11/11/2023 2:11 PM CDT [facility] TOTAL PROTEIN 8.2 6.3 - 8.2 g/dL 11/11/2023 2:11 PM CDT [facility] ALBUMIN 4.4 3.5 - 5.0 g/dL 11/11/2023 2:11 PM T [facility] A/G RATIO 1.2 1.0 - 2.2 11/11/2023 2:11 PM CDT [facility] CALCIUM 9.8 8.7 - 10.5 mg/dL 11/11/2023 2:11 PM CDT [facility] T BILI 0.8 0.2 - 1.2 mg/dL 11/11/2023 2:11 PM CDT [facility] SGOT (AST) 35(H) 5 - 34 U/L 11/11/2023 2:11 PM CDT [facility] SGPT (ALT) 33 0 - 55 U/L 11/11/2023 2:11 PM CDT [facility] ALKALINE PHOSPHATASE 58 40 - 150 U/L 11/11/2023 2:11 PM CDT [facility] GFR, ESTIMATED >60 >=60 11/11/2023 2:11 PM CDT [facility] Comment: Creatinine Clearance is the preferred criteria for selecting drug dose adjustments in renally impaired patients. The GFR is provided as additional pertinent clinical information. GFR is reported in mL/min/1.73 sq m. Calculation based on the Chronic Kidney Disease Epidemiology Collaboration (CKD- EPI) equation refit without adjustment for race. GFR, EST. >60 >=60 024 2:11 PM CDT [facility] GFR, EST. NONAFRICAN >60 >=60 11/11/2023 2:11 PM CDT [facility] Blood Venipuncture / Unknown 11/11/2023 1:33 PM CDT 11/11/2023 1:48 PM CDT us Pablito Shell MD CHEMISTRY ORDERABLES Final Result [facility] [place] [address] * (ABNORMAL) Hemoglobin A1C -- in AM (03/28/2019 5:21 AM CDT) HGB-A1C 10.2(H) 4.0 - 6.0 % 03/28/2019 5:59 AM CDT [facility] Est Average Glucose 246.0 mg/dL 03/28/2019 5:59 AM CDT [facility] Blood specimen (specimen) Venipuncture / Unknown 03/28/2019 5:21 AM CDT 03/28/2019 5:42 AM CDT us Yan Anglin MD CHEMISTRY ORDERABLES Final R esult [facility] [place] [address] from Last 3 Months or Most Recently Relevant to Health Maintenance Insurance [place] [employer] [place] Advance Directives * Full Code (Latest Code Status on File) Date Activated Date Inactivated Comments 11/12/2023 4:49 PM 11/14/2023 12:45 PM CPR-Full Tr eatment: FULL ARREST: Attempt Resuscitation/CPR wit intubation and mechanical ventilation. PRE-ARREST: Use entire range of life support measures to stabilize the patient. * Full Code Date Activated Date Inactivated Comments 04/16/2019 12:48 AM 04/20/2019 12:41 AM CPR-Full Treatment: FULL ARREST: Attempt Resuscitation/CPR wit intubation and mechanical ventilation. PRE-ARREST: Use entire range of life support measures to stabilize the patient. * Full Code Date Activated Date Inactivated Comments 03/27/2019 1:59 AM 03/31/2019 7:44 PM CPR-Full Tr eatment: FULL ARREST: Attempt Resuscitation/CPR wit intubation and mechanical ventilation. PRE-ARREST: Use entire range of life support measures to stabilize the patient. Care Teams Contact Lens Polisher Relationship Specialty Start Date End Date Ghanshyam Alfaro MD [address] [place] [id number] PCP - General Family Medicine 01/07/19
--- OUTSIDE RECORDS SUMMARY | 2024-12-28 18:27 | XMS_ITS | Patient Health Record ---
Author Organization Formerly [facility] Address [address] [place] [address] Care Team Providers Care Drawing In Hand Name Role Phone Christy Rodriguezmichelle Primary Care Provider Allergies Allergen (clinical drug ingredient) Drug/Non Drug Allergy documented on EMR Reaction Allergy Type Onset Date Status codeine Codeine (uncoded) stomach upset Allergy Active Flexeril (uncoded) stomach upset Allergy Active tramadol tramadol (uncoded) stomach upset Allergy Active Reason For Referral No Information Medications Medication SIG (Take, Route, Frequency, Duration) Notes Start Date End Date Status amLODIPine Besylate 5 MG 1 tablet Orally Once a day Active hydrOXYzine HCl 25 MG 1 tablet as needed Orally every 8 hrs; Duration: 30 day(s) Active NovoLOG 100 UNIT/ML as directed Subcutaneous Active Insulin Glargine 100 UNIT/ML as directed Subcutaneous 10 units at bedtime Active Depakote 500 MG 1 Orally Twice a day ; Duration: 30 day(s) Active glipiZIDE ER 10 MG 1 tablet Orally Once a day Unknown Haloperidol 2 MG 1.5 tablet Orally at night; Duration: 30 days Active Gabapentin 800 MG 1 tablet Orally Thre e times a day Unknown risperiDONE 1 MG 1 tablet Orally Once a day; Duration: 30 day(s) 06/06/2021 Active Allopurinol 100 MG 1 tablet Orally Once a day; Duration: 30 day(s) Active Atorvastatin Calcium 40 MG 1 tablet Oral ly Once a day; Duration: 30 day(s) Active Albuterol Sulfate HFA 108 (90 Base) MCG/ACT 1 puff as needed Inhalation every 4 hrs Active Social History Tobacco Use: Social History Observation Description Date Details (start date - stop date) Current Smoker NA - NA Dont use, Tobacco Use/Smoking Question Answer Notes Are you a current smoker Problems Problem Type SNOMED Code ICD Code Onset Dates Problem Status W/U Status Risk Notes Problem Schizoaffective disorder, bipolar type (12266569) Schizoaffective disorder, bipolar type (F25.0) Active confirmed Problem Neuropathy (023064564) Neuropathy (G62.9) Active confirmed Problem Essential hypertension (85170602) Essential hypertension (I10) 09/15/19 22 Active confirmed Problem Disorder due to type 2 diabetes mellitus (480405711) Type 2 diabetes mellitus with complication, without long-term current use of insulin (E11.8) 09/15/19 22 Active confirmed Problem Tobacco use (111023656) Tobacco use disorder (F17.200) Active confirmed Problem Chronic alcoholism in remission (disorder) (999890250) Alcohol use disorder, severe, in early remission (F10.21) Active confirmed Problem Cocaine dependence in remission (064167808) Cocaine use disorder, severe, in early remission (F14.21) Active confirmed Plan Of Treatment No Information Insurance Providers Payer Name Payer Address Payer Phone Subscriber Number Group Number Insured Name Patient Relationship to Insured Coverage Start Date Coverage End Date [employer] [address] [place] [address] [phone] [id number] Fritz Nowak Self - patient is the insured 8 [employer] [address] [place] [address] [phone] [id number] Fritz Nowak Self - patient is the insured 1 [employer] [address] [place] [address] [phone] [id number] Fritz Nowak Self - patient is the insured 2 Medical (General) History Medical History History ICD Code Hypertension Diabetes Gout Neuropathy High Cholesterol Bipolar disorder Anxiety Depression Schizophrenia Surgical History Surgery Date(Month/Year) 1991 Hospitalization History Reason Date(Month/Year) 1991
--- OUTSIDE RECORDS SUMMARY | 2024-12-28 18:27 | XMS_ITS | Continuity of Care Document ---
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 [address] [place] [address], [address], [id number] , [place]. tel: [phone] Family History Family Member Type Diagnosis Age At Onset No Information Payers Payer name Insurance type Covered green party ID Authoriza tion(s) No Information Social History Type Description Quantity Date Captured Comments Sex Male Smoking Status No Information Chief Complaint And Reason For Visit No Information Reason For Referral Reason For Referral No Information Plan Of Treatment Date Type Action Status Goal Tdap. Due on due Goal Hepatitis C screening. Due o n due Goal Unhealthy drug use screening . Due on due Goal FIT-DNA. Due on due Goal CT-Colonography. Due on due Goal Influenza vaccine. Due on due Goal FOBT. Due on due Goal Diabetes screening. Due on due Goal Depression screening. Due on due Goal Td vaccine. Due on due Goal Sigmoidoscopy. Due on due Goal FIT. Due on due Goal Colonoscopy. Due on 023 due History Of Present Illness Encounter Date Complaint History Of Prese nt Illness No Information Functional Status Date Functional Assessmen t No Information Instructions Date Instruction Additional Infor mation No Information Assessments Type Assessment Date No Information Patient Care Teams Name Effective Dates (start - stop) Status Members No Information
[2024-12-28 18:38] LABS: Acetaminophen < 10 ug/mL (10-30); Salicylate < 1.0 mg/dL (2-20)
[2024-12-28 18:44] LABS: Alanine Aminotransferase 18 U/L (6-50); Albumin Level 4.0 g/dL (3.5-5.1); Alkaline Phosphatase 56 U/L (38-126); Anion Gap 7 mmol/L (4-12); Aspartate Amino Transferase 35 U/L (17-59); Bilirubin,Total 1.0 mg/dL (0.2-1.3); Blood Urea Nitrogen 13 mg/dL (9-20); Calcium 9.2 mg/dL (8.4-10.2); Carbon Dioxide 24 mmol/L (22-30); Chloride 106 mmol/L (98-107); Estimated CRCL calculation 71 ml/min; Estimated Glomerular Filt Rate > 60; Glucose 200 mg/dL (65-110); Potassium 3.6 mmol/L (3.4-5.0); Sodium 137 mmol/L (137-145); Total Protein 7.5 g/dL (6.3-8.2)
[2024-12-28 19:04] LABS: Influenza A QL RT-PCR Negative (Negative); Influenza B QL RT-PCR Negative (Negative); RSV RNA, RT-PCR Negative (Negative); SARS-CoV-2 RNA PCR Negative (Negative)
[2024-12-28 19:16] LABS: Thyroid Stimulating Hormone 0.837 uIU/mL (0.465-4.680)
[2024-12-28 19:52] LABS: Add Urine Microscopic? YES; Appearance Urine Clear (Clear); Glucose Urine UA Negative (Negative); Leukocyte Esterase Ur Negative LEU/UL (Negative); Nitrate Urine Negative (Negative); Specific Grav Ur 1.028 (1.001-1.035)
[2024-12-28 22:39] LABS: Cannabinoid Screen Urine Negative (Negative)
--- NOTE | 2024-12-29 03:34 | PC.NURSE ---
Rn went to pt room to get signature for consent to transfer. Pt states he is not wanting to go to [facility] because it is too far. Pt still was willing to sign transfer form but states he would like to be closer to family and states he does not like [facility]. technology intern and MD Amador notified. MD Amador states she does not want to make pt involuntary. Rn spoke with Candis from Crisis and she verbally states she can reach out to [facility] and we can reach out to [facility].
[2024-12-29 04:00] VITALS: BP 129/90; PULSE 87; RESP 18; O2SAT 100
--- NOTE | 2024-12-29 05:27 | PC.NURSE ---
[facility] IN [place], [place] CALLED AT 0527 AND DECLINED THIS PT DUE TO NOT HAVING THE APPROPRIATE BED FOR HIM.
--- NOTE | 2024-12-29 06:32 | PC.NURSE ---
[facility]by denied pt.
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
--- NOTE | 2024-12-29 08:58 | PC.NURSE ---
Spoke with Candis from [facility]. Updated about patient at this time.
--- NOTE | 2024-12-29 09:40 | PC.NURSE ---
After speaking with patient about plan. Patient states I will not go back to [facility] I had a bad experience there and I will never go back there. I would like to speak with the doctor. This RN explained to patient he has been declined to other places in the area. At this time the [facility] is the only place that will accept him and has beds available. I will talk with the doctor and let him know that he would like to speak with him. EDP made aware of patient statements and that he would like to speak with him. EDP would like us to call [facility] and update them.
--- NOTE | 2024-12-29 09:55 | PC.NURSE ---
Spoke with [facility] and updated them about patient. Per [facility] they will send someone out to speak with patient.
--- NOTE | 2024-12-29 11:00 | PC.NURSE ---
[facility] arrived to bedside in ED
== END 2024-12-29 12:40 | disposition home or self-care (01) ==
PROVIDERS: Emergency Medicine; Emergency Provider Student in an Organized Health Care Education/Training Program
DX: R45.851 Suicidal ideations (principal); E11.65 Type 2 diabetes mellitus with hyperglycemia; D64.9 Anemia, unspecified; R80.9 Proteinuria, unspecified; F41.8 Other specified anxiety disorders; F20.9 Schizophrenia, unspecified; I10 Essential (primary) hypertension; E78.5 Hyperlipidemia, unspecified; Z11.59 Encounter for screening for other viral diseases
CPT/HCPCS: 36415; 80053; 80143; 80179; 80307; 81001; 82077; 84443; 85025; 87637; 93005; 99284

== ENCOUNTER 2025-01-18 18:43 | Emergency (ER) | payer OTHER, SELFPAY ==
[2025-01-18 18:55] VITALS: BP 135/88; PULSE 93; RESP 16; TEMP 36.3; O2SAT 97
[2025-01-18 19:10] LABS: Hematocrit 39.0 % (42.0-52.0); Hemoglobin 12.4 g/dL (14.0-18.0); Immature Granulocyte Percent A 0.2 % (0-0.5); Lymphocytes Absolute Auto 2.44 K/mm3 (0.9-3.2); Mean Corpuscular HGB Conc 31.8 g/dl (32-36); Mean Corpuscular Hemoglobin 26.2 pg (26-34); Mean Corpuscular Volume 82.5 fl (80-100); Nucleated Red Blood Cells Absolute Auto 0.000 K/mm3 (0.0-0.012); Nucleated Red Blood Cells Perc 0.0 % (0.0-0.2); Platelet Count Result 289 k/mm3 (150-375); Red Blood Count 4.73 M/mm3 (4.6-6.20); White Blood Count 5.3 K/mm3 (4.5-10.0)
[2025-01-18 19:19] LABS: Add Urine Microscopic? YES; Appearance Urine Clear (Clear); Glucose Urine UA Negative (Negative); Leukocyte Esterase Ur Negative LEU/UL (Negative); Nitrate Urine Negative (Negative); Non Pathogenic Casts 0-2; Specific Grav Ur 1.014 (1.001-1.035)
[2025-01-18 19:33] LABS: Alanine Aminotransferase 16 U/L (6-50); Albumin Level 4.1 g/dL (3.5-5.1); Alkaline Phosphatase 57 U/L (38-126); Anion Gap 11 mmol/L (4-12); Aspartate Amino Transferase 35 U/L (17-59); Bilirubin,Total 0.5 mg/dL (0.2-1.3); Blood Urea Nitrogen 18 mg/dL (9-20); Calcium 9.1 mg/dL (8.4-10.2); Carbon Dioxide 21 mmol/L (22-30); Chloride 108 mmol/L (98-107); Estimated CRCL calculation 56 ml/min; Estimated Glomerular Filt Rate 57; Glucose 217 mg/dL (65-110); Potassium 3.9 mmol/L (3.4-5.0); Sodium 140 mmol/L (137-145); Total Protein 7.5 g/dL (6.3-8.2)
--- OUTSIDE RECORDS SUMMARY | 2025-01-18 19:35 | XMS_ITS | Patient Health Record ---
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 Name Role Phone Christy Rodriguezmichelle Primary Care [...] Risk Notes Problem Schizoaffective disorder, bipolar type (25878257) Schizoaffective disorder, bipolar type (F25.0) Active confirmed Problem Neuropathy (428176397) Neuropathy (G62.9) Active confirmed Problem Essential hypertension (40479272) Essential hypertension (I10) 09/15/19 22 Active confirmed Problem Disorder due to type 2 diabetes mellitus (998692011) Type 2 diabetes mellitus with complication, without long-term current use of insulin (E11.8) 09/15/19 22 Active confirmed Problem Tobacco use (899217914) Tobacco use disorder (F17.200) Active confirmed Problem Chronic alcoholism in remission (disorder) (351776167) Alcohol use disorder, severe, in early remission (F10.21) Active confirmed Problem Cocaine dependence in remission (637603518) Cocaine use disorder, severe, in early remission (F14.21) Active confirmed Plan Of Treatment No Information Insurance Providers Payer Name Payer Address Payer Phone Subscriber Number Group Number Insured Name Patient Relationship to Insured Coverage Start Date Coverage End Date [employer] [address] [place] [address] [phone] [id number] Fritz Nowak Self - patient is the insured 8 [employer] [address] [place] [address] [phone] [id number] Fritz Nowak Self - patient is the insured 1 [employer] [address] [place] [address] [phone] [id number] Fritz Nowak Self - patient is the insured 2 Medical (General) History Medical History History ICD Code Hypertension Diabetes Gout Neuropathy High Cholesterol Bipolar disorder Anxiety Depression Schizophrenia Surgical History Surgery Date(Month/Year) 1991 Hospitalization History Reason Date(Month/Year) 1991
[2025-01-18 19:44] LABS: Cannabinoid Screen Urine Negative (Negative)
--- NOTE | 2025-01-18 19:50 | ECG_ITS ---
Test Date: 2025-01-18 19:54:12 Measurements Intervals [place] Rate: 101 P: 73 OR: 137 QRS: -51 QRSD: 153 T: 118 QT: 408 QTc: 531 Interpretive Statements SINUS TACHYCARDIA LEFT AXIS DEVIATION POSSIBLE LEFT ATRIAL ENLARGEMENT LEFT BUNDLE BRANCH BLOCK ABNORMAL ECG] Compared to ECG 12/28/2024 17:53:58 NO SIGNIFICANT CHANGE Electronically Signed On 01-18-2025 20:10:13 CDT by Dennys Wallis D.O.
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
[2025-01-18 20:10] LABS: Thyroid Stimulating Hormone Reflex 1.220 uIU/mL (0.465-4.68)
[2025-01-18 20:43] LABS: Influenza A QL RT-PCR Negative (Negative); Influenza B QL RT-PCR Negative (Negative); RSV RNA, RT-PCR Negative (Negative); SARS-CoV-2 RNA PCR Negative (Negative)
--- NOTE | 2025-01-18 21:00 | PC.NURSE ---
2056 [facility] called, spoke with Serge, he states someone will be out to evaluate patient soon.
--- NOTE | 2025-01-18 23:26 | PC.NURSE ---
2320 Yasmani with [facility] calls to get update and triage info on patient. He states he will call back soon.
--- NOTE | 2025-01-18 23:37 | PC.NURSE ---
Addendum entered by Isha Boyle RN 01/19/25 01:17: Date for patient to be accepted is 01/19/25 after 1500 and will go to intake room 2. Original Note: 9302 Yasmani with [facility] calls to give accepting provider, Tk WOLFE, and that patient is accepted after 1500 01/20/24 and will go to intake room 2. He leaves call back number of [phone] for any updates.
--- NOTE | 2025-01-18 23:40 | PC.NURSE ---
2339 [facility] calls and declines patient.
[2025-01-19 04:01] VITALS: BP 124/83; PULSE 97; RESP 18; TEMP 36.8; O2SAT 98
--- NOTE | 2025-01-19 04:19 | PC.NURSE ---
Patient waiting for transport to [facility] in [place], [place]. Patient to be transferred by [facility] at approx 1330 on 01/19/25. Report was called to SIMONA Gruber at 2328 on 01/18/25. Patient will be transferred with his chart and belongings. Patient continues to have sitter at bedside.
--- NOTE | 2025-01-19 06:36 | PC.NURSE ---
Sitter was removed per Charge Nurse.
--- NOTE | 2025-01-19 07:07 | PC.NURSE ---
Called and ordered patient a breakfast tray and lunch tray with SI precautions.
[2025-01-19 14:12] VITALS: BP 122/71; PULSE 93; RESP 18; TEMP 36.6; O2SAT 100
== END 2025-01-19 14:19 ==
PROVIDERS: Emergency Provider Registered Nurse
DX: R45.851 Suicidal ideations (principal); I10 Essential (primary) hypertension; E78.5 Hyperlipidemia, unspecified; E11.9 Type 2 diabetes mellitus without complications; F17.200 Nicotine dependence, unspecified, uncomplicated; Z20.822 Contact with and (suspected) exposure to COVID-19
CPT/HCPCS: 36415; 80053; 80307; 81001; 82077; 84443; 85025; 87637; 93005; 99285